=== PATIENT | female | born 1950 | race Caucasian/White ===

== ENCOUNTER → 2017-12-27 | Outpatient (CLI) | payer MEDICARE ==
--- NOTE | 2017-12-27 16:38 | CT ---
EXAMINATION TYPE: CT abdomen pelvis wo con DATE OF EXAM: 12/27/2017 COMPARISON: None HISTORY: 67-year-old female Ventral hernia without obstruction CT DLP: 977.20 mGycm. Automated exposure control for dose reduction was used. TECHNIQUE: Contiguous axial scanning of the abdomen and pelvis without IV contrast. Coronal and sagit rafita reconstructions performed. FINDINGS: Heart normal size without pericardial effusion. Lung bases clear without pleural effusion. Liver mildly enlarged measuring 19.1 cm. Noncontrast appearance of the liver, adrenal glands, kidneys , and pancreas show no gross abnormality. Spleen mildly enlarged at 14.1 cm on coronal series. Hilar splenule is noted. No dilated small bowel, free fluid, or free air. Mild overall stool burden with sigmoid diverticulosi s. No pericolonic inflammatory change identified. No mesenteric or retroperitoneal lymphadenopathy seen. Bladder partially distended. Uterus and ovaries are visualized. Pelvic phleboliths. No abnormal fluid collection in the pelvis or pelvic lymphadenopathy seen. There is a right paramedian epigastric ventral abdominal wall hernia containing fat and some mild flu id. The hernia neck measures 8 mm wide in the hernia measures 4.4 x 4.5 cm, axial image 32 and sagitt al image 54. A second left paramedian ventral wall hernia above the level of the umbilicus contains omental fat ve ssels. The hernia neck measures 2.3 cm wide and the hernia sac measures 9.2 x 7.2 cm. There is fat st randing and mild fluid in the hernia sac. There is mass effect onto the underlying abdominal wall. Bones: Degenerative changes at the hip and lower lumbar spine with grade 1 anterolisthesis at L4-L5. IMPRESSION: 1. A moderate to large sized left paramedian ventral abdominal wall hernia above the level of the um bilicus contains omental fat and vessels measuring 9.2 cm with a 2.3 cm wide hernia neck. There is fa t stranding, mild fluid in the hernia sac, and mass effect onto the underlying abdominal wall muscula ture. Correlate for hernia incarceration and possible fat strangulation. 2. Smaller right paramedian epigastric ventral abdominal hernia also containing omental fat and mild free fluid measuring 4.5 cm wide with an 8 mm wide neck. 3. Sigmoid diverticulosis. 4. Mild hepatosplenomegaly (liver 19.1 cm and spleen 14.1 cm).
== END | disposition home or self-care (01) ==
LOC: RADCTMAIN 13:20
PROVIDERS: ATTEND Surgery Plastic and Reconstructive Surgery
DX: K43.9 Ventral hernia without obstruction or gangrene (principal); K57.30 Diverticulosis of large intestine without perforation or abscess without bleeding; R16.2 Hepatomegaly with splenomegaly, not elsewhere classified
CPT/HCPCS: 74176

== ENCOUNTER 2018-02-11 09:42 | Day surgery (SDC) | payer MEDICARE ==
[~2018-02-11 09:42] MED LIST: DEXAMETHASONE SOD PHOSPHATE 10 MG/ML 1 ML VIAL IV ONE; HEPARIN SODIUM,PORCINE 5,000 UNIT/ML 1 ML VIAL SQ ONE; HYDROmorphone 0.5 MG/0.5 ML SYRINGE IVP PRN; LACTATED RINGERS 1,000 ML IV SCH; LIDOCAINE 1% 20 ML VIAL (10MG/ML) FOR IV START INTRADERMA PRN; SCOPOLAMINE 1.5MG/72HR PATCH TRANSDERM ONE; ceFAZolin IN SWFI 2 GM/20 ML SYRINGE IVP ONE
[2018-02-11 10:31] LABS: Glucose,Whole Blood 153 mg/dL (75-99)
[2018-02-11 10:37] LABS: Basophils % (A) 0 %; Eosinophils # (A) 0.1 k/uL (0-0.7); Eosinophils % (A) 2 %; HCT 41.3 % (34.0-46.0); HGB 13.4 gm/dL (11.4-16.0); Lymphocytes # (A) 1.6 k/uL (1.0-4.8); Lymphocytes % (A) 29 %; MCH 28.1 pg (25.0-35.0); MCHC 32.3 g/dL (31.0-37.0); MCV 86.8 fL (80.0-100.0); Monocytes # (A) 0.2 k/uL (0-1.0); Monocytes % (A) 4 %; Neutrophils # (A) 3.5 k/uL (1.3-7.7); Neutrophils % (A) 64 %; Platelet Count 165 k/uL (150-450); RBC 4.76 m/uL (3.80-5.40); RDW 13.9 % (11.5-15.5); WBC 5.5 k/uL (3.8-10.6)
[2018-02-11] MEDS ORDERED: ONDANSETRON 4 MG/2 ML VIAL IVP ONE (10:47)
[2018-02-11 10:50] LABS: Anion Gap 9 mmol/L; Blood Urea Nitrogen 21 mg/dL (7-17); Calcium 9.9 mg/dL (8.4-10.2); Carbon Dioxide 24 mmol/L (22-30); Chloride 106 mmol/L (98-107); Glucose 154 mg/dL (74-99); Potassium 4.7 mmol/L (3.5-5.1); Sodium 139 mmol/L (137-145)
--- NOTE | 2018-02-11 10:51 | P.GSHP ---
History of Present Illness H&P Date: 02/11/18 CHIEF COMPLAINT: Incisional hernia. HISTORY OF PRESENT ILLNESS: The patient is a 67-year-old female who presents with a history of swelling along the upper abdomen. Findings were consistent with possible incisional hernia. Now she presents for further evaluation and management. PAST MEDICAL HISTORY: Please see list. PAST SURGICAL HISTORY: Please see list. MEDICATIONS: Please see list. ALLERGIES: Please see list. SOCIAL HISTORY: No illicit drug use FAMILY HISTORY: No reports of Crohn disease or ulcerative colitis. REVIEW OF ORGAN SYSTEMS: CONSTITUTIONAL: No reports of fevers or chills. GI: Denies any blood in stools or constipation. PHYSICAL EXAM: VITAL SIGNS: Stable GENERAL: Well-developed pleasant female in no acute distress. HEENT: No scleral icterus. Extraocular movements grossly intact. Moist buccal mucosa. NECK: Supple without lymphadenopathy. CHEST: Unlabored respirations. Equal bilateral excursions. CARDIOVASCULAR: Regular rate and rhythm. Distal 2+ pulses. ABDOMEN: Soft, nondistended. Tender hernia along the mid abdomen. Protuberant. MUSCULOSKELETAL: No clubbing, cyanosis, or edema. ASSESSMENT: 1. Incisional ventral hernia. 2. Morbid obesity PLAN: 1. Recommend proceeding with robotic ventral hernia repair with mesh. 2. Benefits and risks of surgical intervention was discussed including possibility of open technique. 3. DVT prophylaxis. 4. Antibiotic prophylaxis. Past Medical History Past Medical History: Diabetes Mellitus, GERD/Reflux, Hypertension, Osteoarthritis (OA) History of Any Multi-Drug Resistant Organisms: None Reported Past Surgical History: Appendectomy, Cholecystectomy, Tubal Ligation Past Anesthesia/Blood Transfusion Reactions: Previous Problems w/ Anesthesia Additional Past Anesthesia/Blood Transfusion Reaction / Comment(s): stated hyperventilated after one of her surgeries as she was waking-not sure why Smoking Status: Never smoker - Past Family History Mother Family Medical History: No Reported History Medications and Allergies Home Medications Medication Instructions Recorded Confirmed Type Aspirin 81 mg PO DAILY 02/01/18 02/11/18 History Dapagliflozin Propanediol [Farxiga] 10 mg PO DAILY 02/01/18 02/11/18 History Enalapril [Vasotec] 20 mg PO BID 02/01/18 02/01/18 History Furosemide [Lasix] 40 mg PO BID 02/01/18 02/11/18 History Ibuprofen [Motrin] 800 mg PO Q6H PRN 02/01/18 02/11/18 History Metoprolol Tartrate [Lopressor] 100 mg PO BID 02/01/18 02/01/18 History Ranitidine HCl [Zantac] 150 mg PO BID 02/01/18 02/11/18 History amLODIPine [Norvasc] 10 mg PO DAILY 02/01/18 02/01/18 History metFORMIN HCL [Glucophage] 1,000 mg PO BID 02/01/18 02/11/18 History Allergies Allergy/AdvReac Type Severity Reaction Status Date / Time Latex, Natural Rubber Allergy Rash/Hives Verified 02/01/18 10:16 Surgical - Exam Vital Signs Temp Pulse Resp BP Pulse Ox 97.6 F 61 16 127/69 96 02/11/18 10:10 02/11/18 10:10 02/11/18 10:10 02/11/18 10:10 02/11/18 10:10 Results - Labs 02/11/18 10:26 Abnormal Lab Results - Last 24 Hours (Table) 02/11/18 Range/Units 10:21 POC Glucose (mg/dL) 153 H (75-99) mg/dL
[2018-02-11] MEDS ORDERED: PROPOFOL 10 MG/ML 20 ML VIAL IV ONE (11:17)
[2018-02-11] MEDS ORDERED: LIDOCAINE 1% INJ 10MG/ML (20 ML MDV) ONE (11:17)
[2018-02-11] MEDS ORDERED: SUCCINYLCHOLINE CHLORIDE 100 MG/5 ML SYR IV ONE (11:17)
[2018-02-11] MEDS ORDERED: fentaNYL (PF) 50 MCG/ML 2 ML AMP ONE (11:17)
[2018-02-11] MEDS ORDERED: MIDAZOLAM 2 MG/2 ML VIAL ONE (11:17)
[2018-02-11] MEDS ORDERED: GLYCOPYRROLATE 0.2 MG/ML 2 ML VIAL ONE (11:17)
[2018-02-11] MEDS ORDERED: NEOSTIGMINE 1 MG/ML 10 ML VIAL ONE (11:17)
[2018-02-11] MEDS ORDERED: HYDROmorphone (PF) 1 MG/ML ONE (11:17)
[2018-02-11] MEDS ORDERED: ROCURONIUM BROMIDE 10 MG/ML 10 ML VIAL IV ONE (11:17)
[2018-02-11] MEDS ORDERED: ePHEDrine SULFATE/0.9% NACL/PF 50 MG/5 ML SYRINGE IV ONE (11:17)
[2018-02-11] MEDS ORDERED: BUPIVACAIN-EPI 0.25%-1:200,000 30 ML VIAL SQ ONE (11:35)
[2018-02-11] MEDS ORDERED: LACTATED RINGERS 1,000 ML IV ONE (12:30)
--- NOTE | 2018-02-11 14:23 | P.OP ---
Date of Procedure: 02/11/18 Description of Procedure: SURGEON: ION ORTEGA MD PREOPERATIVE DIAGNOSES: 1. Incarcerated incisional hernia, initial 2. Morbid obesity due to excess calories, BMI 39.5 3. Diabetes type 2, uncontrolled 4. Hypertensive heart disease 5. Gastroesophageal reflux disease POSTOPERATIVE DIAGNOSES: 1. Incarcerated epigastric incisional hernia, initial 2. Morbid obesity due to excess calories, BMI 39.5 3. Diabetes type 2, uncontrolled 4. Hypertensive heart disease 5. Gastroesophageal reflux disease 6. Peritoneal adhesions OPERATION: 1. Robotic-assisted da Cedrick Xi laparoscopic reduction and repair of initial incarcerated incisional hernia epigastrium 10 x 13 cm with placement of mesh, ventralight ST mesh 15 x 20 cm 2. Robotic-assisted da Cedrick Xi laparoscopic lysis of adhesions over 30 minutes Anesthesia: GETA, local Estimated Blood Loss (ml): 5 Pathology: none sent Condition: stable Disposition: same day COMPLICATIONS: None. Operative Findings: 1. Incarcerated epigastric incisional hernia incorporating falciform ligament including omentum, 10 x 13 cm 2. Defect closed with the fascia using #1 Strafix 3. 3. 15 x 20 cm mesh as an onlay after fascial closure. 4. 12 mm port placed along the left upper quadrant for mesh placement and removal of sutures INDICATIONS: The patient is a 67-year-old female who presents with pain and swelling along the epigastrium for incarcerated incisional hernia. Surgical intervention with laparoscopic versus robotic and open techniques were reviewed. Placement of mesh was also reviewed. Benefits and risks were thoroughly described. Informed consent was obtained. DESCRIPTION OF PROCEDURE: The patient was brought into the operating room and laid in supine position. After general induction, the abdomen had been prepped and draped in standard sterile fashion. Ioban draping was also placed. Prior to incision, a timeout protocol was confirmed with surgical team regarding the patient's name including procedures to be performed. The robot was primed prior to the procedure. A field block using local anesthetic was placed along hernia site including the proposed port sites. Initial incision was made with a #11 blade along the left upper quadrant. A 0 degree 5 mm laparoscopic trocar entry was performed. Diagnostic laparoscopy demonstrated a large incarcerated omentum along the epigastrium for an incisional hernia. Three robotic 8-mm ports were placed along the right lateral abdominal wall. Placements of the ports were 15 cm from the target anatomy and 8 - 10 cm apart. The da Cedrick Xi robot was previously primed, prepped and draped then docked along the right side of the patient. I then sat at the robot Da Cedrick Xi console where working arms of the robot including Bovie cautery connected to robotic scissors, needle flatbed truck driver, vessel sealer and graspers were exchanged by the assistant spa manager. She had very dense adhesions of the epigastrium involving the greater omentum. The adhesions were addressed with a combination of sharp and blunt dissection for over 30 minutes. The incarcerated incisional defect was carefully reduced into the peritoneal cavity with a combination of abdominal wall pressure by the assistant spa manager. The fascial defect with incarcerated epigastric incisional hernia incorporating falciform ligament including omentum measured, 10 x 13 cm. The incarcerated contents was reduced. The hernia defect was oversewn using #1 Stratafix with fascial imbrication x 3 to close and reinforce the defect. Insufflation was adjusted down to 8 mmHg pressure to accommodate repair. Next, ventralight ST mesh 15 x 20 cm was placed with the rough side towards the abdominal wall. 2-0 VLOC sutures were used to fixate the mesh. A final endoscopic imaging was obtained. All instruments and pneumoperitoneum were evacuated from the abdominal cavity. The da Cedrick Xi robot was undocked from the patient. I re-scrubbed into the case for closure of incisions. The incisions were reapproximated using 4-0 Monocryl in an interrupted subcuticular fashion. Liquid glue was applied to the skin after cleansing the skin with normal saline and dilute hydrogen peroxide. An abdominal binder was placed. At the end of the procedure, needle, sponge, and instrument count had been verified correct by surgical tech. The patient was taken to the postanesthesia care unit in stable condition.
[2018-02-11] MEDS ORDERED: HYDROcodone/APAP 7.5-325MG 1 EACH TAB PO ONE (15:46)
== END 2018-02-11 16:33 | disposition home or self-care (01) ==
LOC: OR 09:42
PROVIDERS: ATTEND Surgery Plastic and Reconstructive Surgery
DX: K43.0 Incisional hernia with obstruction, without gangrene (principal); K66.0 Peritoneal adhesions (postprocedural) (postinfection); E66.01 Morbid (severe) obesity due to excess calories; Z68.39 Body mass index [BMI] 39.0-39.9, adult; E11.65 Type 2 diabetes mellitus with hyperglycemia; K21.9 Gastro-esophageal reflux disease without esophagitis; I11.9 Hypertensive heart disease without heart failure; M19.90 Unspecified osteoarthritis, unspecified site; Z90.49 Acquired absence of other specified parts of digestive tract; Z98.51 Tubal ligation status; Z79.84 Long term (current) use of oral hypoglycemic drugs; Z79.82 Long term (current) use of aspirin; Z79.899 Other long term (current) drug therapy; Z91.040 Latex allergy status
CPT/HCPCS: 80048; 85025; 49655; C1781; J2250; J1644; J1100; J2710; J2405; J2001; J3010; J1170 ×2; J0330; J2704; J0690

== ENCOUNTER 2018-11-09 07:15 | Day surgery (SDC) | payer MEDICARE ==
[2018-11-02 14:53] VITALS: BMI 38.9
[~2018-11-09 07:15] MED LIST changes: -DEXAMETHASONE SOD PHOSPHATE 10 MG/ML 1 ML VIAL IV ONE; -HEPARIN SODIUM,PORCINE 5,000 UNIT/ML 1 ML VIAL SQ ONE; -HYDROmorphone 0.5 MG/0.5 ML SYRINGE IVP PRN; -SCOPOLAMINE 1.5MG/72HR PATCH TRANSDERM ONE; -ceFAZolin IN SWFI 2 GM/20 ML SYRINGE IVP ONE
[2018-11-09 07:36] VITALS: TEMP 97.2
--- NOTE | 2018-11-09 07:44 | P.GSHP ---
History of Present Illness H&P Date: 11/09/18 CHIEF COMPLAINT: Colon screen HISTORY OF PRESENT ILLNESS: The patient is a 68-year-old female who presents for colon screen. Lower endoscopy was offered for further evaluation and management. PAST MEDICAL HISTORY: Please see list. PAST SURGICAL HISTORY: Please see list. MEDICATIONS: Please see list. ALLERGIES: Please see list. SOCIAL HISTORY: No illicit drug use FAMILY HISTORY: No reports of Crohn disease or ulcerative colitis. REVIEW OF ORGAN SYSTEMS: CONSTITUTIONAL: No reports of fevers or chills. PHYSICAL EXAM: VITAL SIGNS: Stable GENERAL: Well-developed pleasant in no acute distress. HEENT: No scleral icterus. Extraocular movements grossly intact. Moist buccal mucosa. NECK: Supple without lymphadenopathy. CHEST: Unlabored respirations. Equal bilateral excursions. CARDIOVASCULAR: Regular rate and rhythm. Distal 2+ pulses. ABDOMEN: Soft, nontender, nondistended. MUSCULOSKELETAL: No clubbing, cyanosis, or edema. ASSESSMENT: 1. Colon screen. PLAN: 1. Recommend proceeding with a lower endoscopy Past Medical History Past Medical History: Diabetes Mellitus, GERD/Reflux, Hypertension, Osteoarthritis (OA) History of Any Multi-Drug Resistant Organisms: None Reported Past Surgical History: Appendectomy, Cholecystectomy, Hernia Repair, Tubal Ligation Past Anesthesia/Blood Transfusion Reactions: Previous Problems w/ Anesthesia Additional Past Anesthesia/Blood Transfusion Reaction / Comment(s): stated hyperventilated after one of her surgeries as she was waking-not sure why. claustrophobia Smoking Status: Never smoker - Past Family History Mother Family Medical History: No Reported History Medications and Allergies Home Medications Medication Instructions Recorded Confirmed Type Aspirin 81 mg PO DAILY 02/01/18 11/09/18 History Dapagliflozin Propanediol [Farxiga] 10 mg PO DAILY 02/01/18 11/09/18 History Enalapril [Vasotec] 20 mg PO BID 02/01/18 11/09/18 History Furosemide [Lasix] 40 mg PO BID 02/01/18 11/09/18 History Ibuprofen [Motrin] 800 mg PO Q6H PRN 02/01/18 11/02/18 History Metoprolol Tartrate [Lopressor] 100 mg PO BID 02/01/18 11/09/18 History Ranitidine HCl [Zantac] 150 mg PO BID 02/01/18 11/09/18 History amLODIPine [Norvasc] 10 mg PO DAILY 02/01/18 11/09/18 History metFORMIN HCL [Glucophage] 1,000 mg PO BID 02/01/18 11/09/18 History Glimepiride [Amaryl] 2 mg PO AC-BRKFST 11/02/18 11/09/18 History Allergies Allergy/AdvReac Type Severity Reaction Status Date / Time Latex, Natural Rubber Allergy Rash/Hives Verified 11/02/18 14:41 Surgical - Exam Vital Signs Temp Pulse Resp BP Pulse Ox 97.2 F L 63 16 153/70 92 L 11/09/18 07:35 11/09/18 07:35 11/09/18 07:35 11/09/18 07:35 11/09/18 07:35
[2018-11-09 07:59] LABS: Glucose,Whole Blood 179 mg/dL (75-99)
[2018-11-09] MEDS ORDERED: PROPOFOL 10 MG/ML 20 ML VIAL IV ONE (08:16)
--- NOTE | 2018-11-09 08:43 | P.PCN ---
Date of Procedure: 11/09/18 Description of Procedure: PREOPERATIVE DIAGNOSIS: Colonoscopy screening. POSTOPERATIVE DIAGNOSIS: Colonoscopy screening. Diverticulosis, scattered. OPERATION: Colonoscopy to the ileocecal valve and appendiceal orifice. SURGEON: Chasity Taylor MD. ANESTHESIA: MAC. INDICATIONS: The patient is a 68-year-old female who presents for colonoscopy screening. Last colonoscopy over 5 years. Benefits and risks were described and informed consent was obtained. DESCRIPTION OF PROCEDURE: The patient had undergone Suprep. She had been brought into the operating room and laid in the left lateral decubitus position. After adequate intravenous sedation, the rectum was examined with 2% lidocaine jelly. No external hemorrhoids were encountered. The rectal tone was within normal limits. No lesions were palpated in the rectal vault. An Olympus colonoscope was advanced until the ileocecal valve and appendiceal orifice were clearly viewed. The prep was excellent with clear visualization of the mucosal folds. The scope was removed with visualization of each mucosal fold. Scattered diverticulosis was encountered. No colonic polyps were found. No evidence of focal colitis was found. Retroflexion of the scope demonstrated grade 1 internal hemorrhoids without active bleeding or inflammation. The colon was desufflated. The patient had tolerated the procedure well. Withdrawal time was over 6 minutes. FINDINGS: Aronchick preparation quality scale 2 (1-5) Internal hemorrhoids, grade 1 No external prolapsed hemorrhoids. No arteriovenous malformations. No adenomatous polyps. No focal colitis. RECOMMENDATIONS: Lower endoscopy 5 years, 2023 or Cologaurd Plan - Discharge Summary Discharge Rx Participant: No New Discharge Prescriptions: No Action Aspirin 81 mg PO DAILY amLODIPine [Norvasc] 10 mg PO DAILY Metoprolol Tartrate [Lopressor] 100 mg PO BID Furosemide [Lasix] 40 mg PO BID Enalapril [Vasotec] 20 mg PO BID metFORMIN HCL [Glucophage] 1,000 mg PO BID Ranitidine HCl [Zantac] 150 mg PO BID Ibuprofen [Motrin] 800 mg PO Q6H PRN PRN Reason: Pain Dapagliflozin Propanediol [Farxiga] 10 mg PO DAILY Glimepiride [Amaryl] 2 mg PO AC-BRKT Discharge Medication List Aspirin 81 mg PO DAILY 02/01/18 [History] Dapagliflozin Propanediol [Farxiga] 10 mg PO DAILY 02/01/18 [History] Enalapril [Vasotec] 20 mg PO BID 02/01/18 [History] Furosemide [Lasix] 40 mg PO BID 02/01/18 [History] Ibuprofen [Motrin] 800 mg PO Q6H PRN 02/01/18 [History] Metoprolol Tartrate [Lopressor] 100 mg PO BID 02/01/18 [History] Ranitidine HCl [Zantac] 150 mg PO BID 02/01/18 [History] amLODIPine [Norvasc] 10 mg PO DAILY 02/01/18 [History] metFORMIN HCL [Glucophage] 1,000 mg PO BID 02/01/18 [History] Glimepiride [Amaryl] 2 mg PO AC-BRKFST 11/02/18 [History] Follow up Appointment(s)/Referral(s): Chasity Taylor MD [STAFF PHYSICIAN] - As Needed Patient Instructions/Handouts: Diverticulosis Diet (GEN), Diverticulosis (DC), *Surgery [facility] - (Anesthesia) Endoscopy Discharge Instructions Activity/Diet/Wound Care/Special Instructions: Repeat colonoscopy in 5 years, 2023 Discharge Disposition: HOME SELF-CARE
[2018-11-09 09:00] VITALS: BP 158/80; PULSE 66; RESP 20
== END 2018-11-09 09:27 | disposition home or self-care (01) ==
LOC: ORWHC2ENDO 07:15
PROVIDERS: ATTEND Surgery Plastic and Reconstructive Surgery
DX: Z12.11 Encounter for screening for malignant neoplasm of colon (principal); K57.30 Diverticulosis of large intestine without perforation or abscess without bleeding; K64.0 First degree hemorrhoids; E11.9 Type 2 diabetes mellitus without complications; K21.9 Gastro-esophageal reflux disease without esophagitis; I10 Essential (primary) hypertension; F40.240 Claustrophobia; M19.90 Unspecified osteoarthritis, unspecified site; Z90.49 Acquired absence of other specified parts of digestive tract; Z98.51 Tubal ligation status; Z79.84 Long term (current) use of oral hypoglycemic drugs; Z79.82 Long term (current) use of aspirin; Z79.899 Other long term (current) drug therapy; Z91.040 Latex allergy status
CPT/HCPCS: J2704; G0121

== ENCOUNTER 2020-07-17 21:21 | Inpatient (IN) | payer MEDICARE ==
[2020-07-17] MEDS ORDERED: SODIUM CHLORIDE 0.9% 1,000 ML IV STA (21:40)
--- NOTE | 2020-07-17 21:44 | ED ---
SOB HPI - General Source: patient, EMS, RN notes reviewed Mode of arrival: ambulatory Limitations: no limitations <Dewayne Wong - Last Filed: 07/17/20 23:14> <Yo Reed - Last Filed: 07/20/20 23:04> - General Chief Complaint: Shortness of Breath Stated Complaint: cough, RICHARD Time Seen by Provider: 07/17/20 21:36 - History of Present Illness Initial Comments: Patient is a 70-year-old female that presents to emergency department with increased dyspnea. She does have a history of COPD. That for approximately last month her dyspnea has increased. She couldn't give an exact time frame. She was in moderate distress but no pain while sitting up in bed during exam and interview. Patient was very pleasant answering questions. She denied any chest pain headache nausea vomiting diarrhea constipation fever fatigue chills. (Dewayne Wong) - Related Data Home Medications Medication Instructions Recorded Confirmed Dapagliflozin Propanediol [Farxiga] 10 mg PO DAILY 02/01/18 07/17/20 Enalapril [Vasotec] 20 mg PO BID 02/01/18 07/17/20 Furosemide [Lasix] 40 mg PO BID 02/01/18 07/17/20 Metoprolol Tartrate [Lopressor] 100 mg PO BID 02/01/18 07/17/20 amLODIPine [Norvasc] 10 mg PO DAILY 02/01/18 07/17/20 Glimepiride [Amaryl] 2 mg PO AC-BRKFST 11/02/18 07/17/20 Benzonatate [Benzonatate Perle] 200 mg PO TID PRN 07/17/20 07/17/20 Loperamide [Imodium] 2 mg PO QID PRN 07/17/20 07/17/20 Omeprazole [PriLOSEC] 10 mg PO DAILY 07/17/20 07/17/20 Potassium Chloride ER [K-Dur 20] 20 meq PO DAILY 07/17/20 07/17/20 Pravastatin Sodium [Pravachol] 20 mg PO DAILY 07/17/20 07/17/20 Allergies Allergy/AdvReac Type Severity Reaction Status Date / Time Latex, Natural Rubber Allergy Rash/Hives Verified 07/17/20 23:16 Review of Systems ROS Other: All systems not noted in ROS Statement are negative. <Dewayne Wong - Last Filed: 07/17/20 23:14> ROS Other: All systems not noted in ROS Statement are negative. <Yo Reed - Last Filed: 07/20/20 23:04> ROS Statement: Those systems with pertinent positive or pertinent negative responses have been documented in the HPI. Past Medical History Past Medical History: Diabetes Mellitus, GERD/Reflux, Hypertension, Osteoarthritis (OA) History of Any Multi-Drug Resistant Organisms: None Reported Past Surgical History: Appendectomy, Cholecystectomy, Hernia Repair, Tubal Ligation Past Anesthesia/Blood Transfusion Reactions: Previous Problems w/ Anesthesia Additional Past Anesthesia/Blood Transfusion Reaction / Comment(s): stated hyperventilated after one of her surgeries as she was waking-not sure why. claustrophobia Past Psychological History: No Psychological Hx Reported Smoking Status: Never smoker Past Alcohol Use History: None Reported Past Drug Use History: None Reported - Past Family History Mother Family Medical History: No Reported History <Dewayne Wong - Last Filed: 07/17/20 23:14> General Exam Limitations: no limitations General appearance: alert, in no apparent distress Head exam: Present: atraumatic, normocephalic, normal inspection Eye exam: Present: normal appearance, PERRL, EOMI. Absent: scleral icterus, conjunctival injection, periorbital swelling ENT exam: Present: normal exam, mucous membranes moist Neck exam: Present: normal inspection. Absent: tenderness, meningismus, lymphadenopathy Respiratory exam: Present: normal lung sounds bilaterally, accessory muscle use. Absent: respiratory distress, wheezes, rales, rhonchi, stridor Cardiovascular Exam: Present: regular rate, normal rhythm, normal heart sounds. Absent: systolic murmur, diastolic murmur, rubs, gallop, clicks GI/Abdominal exam: Present: soft, normal bowel sounds. Absent: distended, tenderness, guarding, rebound, rigid Extremities exam: Present: normal inspection, full ROM, normal capillary refill. Absent: tenderness, pedal edema, joint swelling, calf tenderness Neurological exam: Present: alert, oriented X3, CN II-XII intact Psychiatric exam: Present: normal affect, normal mood Skin exam: Present: warm, dry, intact, normal color. Absent: rash <Dewayne Wong - Last Filed: 07/17/20 23:14> General appearance: alert, anxious, in distress Head exam: Present: atraumatic, normocephalic, normal inspection Eye exam: Present: normal appearance, PERRL, EOMI. Absent: scleral icterus, conjunctival injection, periorbital swelling ENT exam: Present: normal exam, mucous membranes moist Neck exam: Present: normal inspection. Absent: tenderness, meningismus, lymphadenopathy Respiratory exam: Present: respiratory distress, accessory muscle use, decreased breath sounds, prolonged expiratory. Absent: normal lung sounds bilaterally, wheezes, rales, rhonchi, stridor Cardiovascular Exam: Present: regular rate, normal rhythm, normal heart sounds. Absent: systolic murmur, diastolic murmur, rubs, gallop, clicks GI/Abdominal exam: Present: soft, normal bowel sounds. Absent: distended, tenderness, guarding, rebound, rigid Extremities exam: Present: normal inspection, full ROM, normal capillary refill. Absent: tenderness, pedal edema, joint swelling, calf tenderness Back exam: Present: normal inspection Neurological exam: Present: alert, oriented X3, CN II-XII intact Psychiatric exam: Present: normal affect, normal mood Skin exam: Present: warm, dry, intact, normal color. Absent: rash <oY Reed - Last Filed: 07/20/20 23:04> Course <Dewayne Wong - Last Filed: 07/17/20 23:14> <Yo Reed - Last Filed: 07/20/20 23:04> Vital Signs 07/17/20 07/17/20 07/17/20 21:29 23:30 23:32 Temperature 100.1 F H Pulse Rate 95 93 Respiratory 32 H 28 H Rate Blood Pressure 125/61 136/69 O2 Sat by Pulse 91 L 79 L 91 L Oximetry 07/18/20 07/18/20 07/18/20 01:11 04:58 06:37 Temperature 100.1 F H 97.8 F 98 F Pulse Rate 82 71 69 Respiratory 24 22 24 Rate Blood Pressure 120/59 121/72 122/69 O2 Sat by Pulse 95 94 L 94 L Oximetry 07/18/20 07/18/20 07/18/20 13:28 14:41 18:02 Temperature Pulse Rate 69 67 84 Respiratory 18 20 18 Rate Blood Pressure 126/59 117/74 117/74 O2 Sat by Pulse 93 L 95 96 Oximetry - Reevaluation(s) Reevaluation #1: 07/17/20 22:53 Sepsis called at 10:50 PM (Dewayne Wong) Medical records reviewed Symptoms improved here in the ER Spoke patient regarding findings and results, questions answered (Yo Reed) Medical Decision Making - Lab Data Result diagrams: 07/17/20 22:22 07/17/20 22:22 - EKG Data -: EKG Interpreted by Ms EKG shows normal: sinus rhythm Rate: normal - Radiology Data Radiology results: report reviewed, image reviewed <Dewayne Wong - Last Filed: 07/17/20 23:14> - Lab Data Result diagrams: 07/19/20 07:25 07/19/20 07:25 - Radiology Data Radiology results: report reviewed (Chest x-rays positive for coronavirus pneumonia), image reviewed <Yo Reed - Last Filed: 07/20/20 23:04> - Medical Decision Making 70-year-old female complaining of increased dyspnea over the last month. Labs, nonrebreather at 15 L/m, EKG, chest x-ray ordered. (Dewayne Wong) 70 female DF for evaluation patient does have significant coronavirus, will hold antibiotics secondary to coronavirus being cause of sepsis signs and symptoms. Patient will be admitted for continued supportive care hypoxia with coronavirus pneumonia (Yo Reed) - Lab Data Lab Results 07/17/20 07/17/20 07/17/20 Range/Units 22:22 22:22 22:22 WBC 10.4 (3.8-10.6) k/uL RBC 4.60 (3.80-5.40) m/uL Hgb 13.3 (11.4-16.0) gm/dL Hct 40.0 (34.0-46.0) % MCV 86.9 (80.0-100.0) fL MCH 28.8 (25.0-35.0) pg MCHC 33.2 (31.0-37.0) g/dL RDW 14.3 (11.5-15.5) % Plt Count 223 (150-450) k/uL MPV 7.6 Neutrophils % 90 % Lymphocytes % 6 % Monocytes % 3 % Eosinophils % 0 % Basophils % 0 % Neutrophils # 9.3 H (1.3-7.7) k/uL Lymphocytes # 0.6 L (1.0-4.8) k/uL Monocytes # 0.3 (0-1.0) k/uL Eosinophils # 0.0 (0-0.7) k/uL Basophils # 0.0 (0-0.2) k/uL PT 13.1 H (9.0-12.0) sec INR 1.3 H (<1.2) APTT 21.1 L (22.0-30.0) sec D-Dimer 25.52 H (<0.60) mg/L FEU Sodium 133 L (137-145) mmol/L Potassium 4.1 (3.5-5.1) mmol/L Chloride 99 (98-107) mmol/L Carbon Dioxide 21 L (22-30) mmol/L Anion Gap 13 mmol/L BUN 15 (7-17) mg/dL Creatinine 0.64 (0.52-1.04) mg/dL Est GFR (CKD-EPI)AfAm >90 (>60 ml/min/1.73 sqM) Est GFR (CKD-EPI)NonAf >90 (>60 ml/min/1.73 sqM) Glucose 181 H (74-99) mg/dL Plasma Lactic Acid Anupam (0.7-2.0) mmol/L Calcium 8.8 (8.4-10.2) mg/dL Total Bilirubin 1.4 H (0.2-1.3) mg/dL AST 74 H (14-36) U/L ALT 43 H (4-34) U/L Alkaline Phosphatase 71 (38-126) U/L Lactate Dehydrogenase (313-618) U/L Troponin I (0.000-0.034) ng/mL C-Reactive Protein (<10.0) mg/L Total Protein 6.5 (6.3-8.2) g/dL Albumin 3.3 L (3.5-5.0) g/dL Coronavirus (PCR) (Not Detectd) 07/17/20 07/17/20 07/17/20 Range/Units 22:22 22:22 22:22 WBC (3.8-10.6) k/uL RBC (3.80-5.40) m/uL Hgb (11.4-16.0) gm/dL Hct (34.0-46.0) % MCV (80.0-100.0) fL MCH (25.0-35.0) pg MCHC (31.0-37.0) g/dL RDW (11.5-15.5) % Plt Count (150-450) k/uL MPV Neutrophils % % Lymphocytes % % Monocytes % % Eosinophils % % Basophils % % Neutrophils # (1.3-7.7) k/uL Lymphocytes # (1.0-4.8) k/uL Monocytes # (0-1.0) k/uL Eosinophils # (0-0.7) k/uL Basophils # (0-0.2) k/uL PT (9.0-12.0) sec INR (<1.2) APTT (22.0-30.0) sec D-Dimer (<0.60) mg/L FEU Sodium (137-145) mmol/L Potassium (3.5-5.1) mmol/L Chloride (98-107) mmol/L Carbon Dioxide (22-30) mmol/L Anion Gap mmol/L BUN (7-17) mg/dL Creatinine (0.52-1.04) mg/dL Est GFR (CKD-EPI)AfAm (>60 ml/min/1.73 sqM) Est GFR (CKD-EPI)NonAf (>60 ml/min/1.73 sqM) Glucose (74-99) mg/dL Plasma Lactic Acid Anupam 1.7 (0.7-2.0) mmol/L Calcium (8.4-10.2) mg/dL Total Bilirubin (0.2-1.3) mg/dL AST (14-36) U/L ALT (4-34) U/L Alkaline Phosphatase (38-126) U/L Lactate Dehydrogenase 1571 H (313-618) U/L Troponin I <0.012 (0.000-0.034) ng/mL C-Reactive Protein 205.8 H (<10.0) mg/L Total Protein (6.3-8.2) g/dL Albumin (3.5-5.0) g/dL Coronavirus (PCR) (Not Detectd) 07/17/20 Range/Units 23:33 WBC (3.8-10.6) k/uL RBC (3.80-5.40) m/uL Hgb (11.4-16.0) gm/dL Hct (34.0-46.0) % MCV (80.0-100.0) fL MCH (25.0-35.0) pg MCHC (31.0-37.0) g/dL RDW (11.5-15.5) % Plt Count (150-450) k/uL MPV Neutrophils % % Lymphocytes % % Monocytes % % Eosinophils % % Basophils % % Neutrophils # (1.3-7.7) k/uL Lymphocytes # (1.0-4.8) k/uL Monocytes # (0-1.0) k/uL Eosinophils # (0-0.7) k/uL Basophils # (0-0.2) k/uL PT (9.0-12.0) sec INR (<1.2) APTT (22.0-30.0) sec D-Dimer (<0.60) mg/L FEU Sodium (137-145) mmol/L Potassium (3.5-5.1) mmol/L Chloride (98-107) mmol/L Carbon Dioxide (22-30) mmol/L Anion Gap mmol/L BUN (7-17) mg/dL Creatinine (0.52-1.04) mg/dL Est GFR (CKD-EPI)AfAm (>60 ml/min/1.73 sqM) Est GFR (CKD-EPI)NonAf (>60 ml/min/1.73 sqM) Glucose (74-99) mg/dL Plasma Lactic Acid Anupam (0.7-2.0) mmol/L Calcium (8.4-10.2) mg/dL Total Bilirubin (0.2-1.3) mg/dL AST (14-36) U/L ALT (4-34) U/L Alkaline Phosphatase (38-126) U/L Lactate Dehydrogenase (313-618) U/L Troponin I (0.000-0.034) ng/mL C-Reactive Protein (<10.0) mg/L Total Protein (6.3-8.2) g/dL Albumin (3.5-5.0) g/dL Coronavirus (PCR) Detected A (Not Detectd) - EKG Data EKG Comments: Ventricular rate 93 bpm, PA interval 158 ms, QRS duration 100 ms, QT/QTC 382/474 ms, PRT axes 49/10/46. Normal sinus rhythm, normal ECG. (Dewayne Wong) - Radiology Data Chest x-ray:Moderately severe bilateral pneumonia. No obvious heart failure. (Dewayne Wong) Critical Care Time Critical Care Time: Yes Total Critical Care Time: 31 <Yo Reed - Last Filed: 07/20/20 23:04> Disposition <Dewayne Wong - Last Filed: 07/17/20 23:14> Is patient prescribed a controlled substance at d/c from ED?: No <Yo Reed - Last Filed: 07/20/20 23:04> Clinical Impression: Pneumonia due to COVID-19 virus, COVID-19, Hypoxia Disposition: ADMITTED IP TO THIS HOSP Condition: Critical
[2020-07-17] MEDS ORDERED: IBUPROFEN 600 MG TAB PO STA (22:50)
[2020-07-17] MEDS ORDERED: ACETAMINOPHEN TAB 325 MG TAB PO STA (22:50)
[2020-07-17 22:51] LABS: Basophils % (A) 0 %; Eosinophils % (A) 0 %; HGB 13.3 gm/dL (11.4-16.0); Lymphocytes # (A) 0.6 k/uL (1.0-4.8); Lymphocytes % (A) 6 %; MCH 28.8 pg (25.0-35.0); MCHC 33.2 g/dL (31.0-37.0); MCV 86.9 fL (80.0-100.0); Mean Platelet Volume 7.6; Monocytes # (A) 0.3 k/uL (0-1.0); Monocytes % (A) 3 %; Neutrophils # (A) 9.3 k/uL (1.3-7.7); Neutrophils % (A) 90 %; Platelet Count 223 k/uL (150-450); RDW 14.3 % (11.5-15.5); WBC 10.4 k/uL (3.8-10.6)
--- NOTE | 2020-07-17 22:51 | XR ---
EXAMINATION TYPE: XR chest 1V portable DATE OF EXAM: 07/17/2020 COMPARISON: NONE HISTORY: Short of breath TECHNIQUE: Single view FINDINGS: Heart size is fairly normal. There is interstitial and airspace infiltrates in both lungs a nd more concentrated in the lower lobes. There are chest leads. I see no definite heart failure. Bony thorax appears intact. IMPRESSION: Moderately severe bilateral pneumonia. No obvious heart failure.
[2020-07-17] MEDS ORDERED: PIPERACILLIN-TAZOBACTAM 3.375 GM in SODIUM CHLORIDE 0.9% 100 ML IVPB ONE (23:00)
[2020-07-17 23:12] LABS: ALT 43 U/L (4-34); AST 74 U/L (14-36); African American GFR (CKD) >90 (>60 ml/min/1.73 sqM); Albumin 3.3 g/dL (3.5-5.0); Alkaline Phosphatase 71 U/L (38-126); Anion Gap 13 mmol/L; Blood Urea Nitrogen 15 mg/dL (7-17); Calcium 8.8 mg/dL (8.4-10.2); Carbon Dioxide 21 mmol/L (22-30); Chloride 99 mmol/L (98-107); Glucose 181 mg/dL (74-99); Non-African American GFR(CKD) >90 (>60 ml/min/1.73 sqM); Potassium 4.1 mmol/L (3.5-5.1); Sodium 133 mmol/L (137-145); Total Bilirubin 1.4 mg/dL (0.2-1.3); Total Protein 6.5 g/dL (6.3-8.2)
[2020-07-17 23:20] LABS: INR 1.3 (<1.2); Partial Thromboplastin Time 21.1 sec (22.0-30.0); Prothrombin Time 13.1 sec (9.0-12.0)
[2020-07-17 23:36] LABS: D-Dimer 25.52 mg/L FEU (<0.60)
[2020-07-17] MEDS ORDERED: DEXAMETHASONE SOD PHOSPHATE 10 MG/ML 1 ML VIAL IV STA (23:38)
[2020-07-17] MEDS ORDERED: ALBUTEROL HFA INHALER INHALATION STA (23:38)
[2020-07-18] MEDS ORDERED: NALOXONE 0.4 MG/ML 1 ML VIAL IV PRN (00:44)
[2020-07-18] MEDS ORDERED: HYDROmorphone 0.5 MG/0.5 ML SYRINGE IVP PRN (00:44)
[2020-07-18] MEDS ORDERED: ONDANSETRON 4 MG/2 ML VIAL IVP PRN (01:00)
[2020-07-18 01:14] LABS: C Reactive Protein 205.8 mg/L (<10.0)
[2020-07-18] MEDS: ALBUTEROL HFA INHALER INHALATION SCH ×4 (07:27→19:14)
[2020-07-18] MEDS: DEXAMETHASONE SOD PHOSPHATE 10 MG/ML 1 ML VIAL IV SCH (08:40)
[2020-07-18] MEDS: ZINC SULFATE 220 MG CAP PO SCH (08:41)
[2020-07-18] MEDS ORDERED: ENOXAPARIN 40 MG/0.4 ML SYRINGE SQ SCH (09:00)
[2020-07-18] MEDS ORDERED: BENZONATATE 100 MG CAP PO PRN (10:23)
[2020-07-18] MEDS ORDERED: LOPERAMIDE 2 MG CAP PO PRN (10:23)
--- NOTE | 2020-07-18 12:02 | P.CNPUL ---
History of Present Illness Consult date: 07/18/20 Requesting physician: Jorden Deutsch Reason for consult: dyspnea, cough, hypoxemia, pneumonia, abnormal CXR/CT Chief complaint: Shortness of breath, cough, chest congestion. History of present illness: This is a 62-year-old female that we see in the emergency department. She came to the emergency department on 317, complaining of increasing shortness of breath. She's not been feeling well for at least one month. She's been trying to take care of herself at home. Over the last couple of days, her symptoms got worse. She complains of chest congestion, cough, shortness of breath, fever, chills, muscle aches, and generally just not feeling well. Currently in the emergency department, she is on a nonrebreather mask, and 15 L high flow O2. She's not receiving any IV fluids. Both her and her are here in the emergency department, with COVID 19 pneumonia. She appears to be much sicker, as her oxygen requirements are much higher than her 's. 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 She has a history of diabetes mellitus, GERD, hypertension, and osteoarthritis. She is not a particularly good historian. White count is 10.4, hemoglobin 13.3, hematocrit 40.0, and platelet count 223,000. PT 13.1, INR 1.3, PTT 21.1, and d-dimer 25.52. Sodium 133, potassium 4.1, chloride 79, CO2 21, anion gap 13, BUN 15, creatinine 0.64. LDH is 1571, C-reactive protein is 206. COVID testing was positive. Chest x- rays consistent with bilateral infiltrates. They are rather extensive. Review of Systems REVIEW OF SYSTEMS: CONSTITUTIONAL: Fever and chills, weakness and fatigue. Muscle aches. NEUROLOGIC: [ Negative.] HEENT: [ Negative.] CARDIAC: [Negative.] PULMONARY: Shortness of breath, cough, chest pain, chest congestion. GI: [Negative.] : [Negative.] RHEUMATOLOGIC: [ Negative.] IMMUNOLOGIC: [ Negative.] ENDOCRINE: [Negative. ] DERMATOLOGIC: [Negative.] Past Medical History Past Medical History: Diabetes Mellitus, GERD/Reflux, Hypertension, Osteoarthritis (OA) History of Any Multi-Drug Resistant Organisms: None Reported Past Surgical History: Appendectomy, Cholecystectomy, Hernia Repair, Tubal Ligation Past Anesthesia/Blood Transfusion Reactions: Previous Problems w/ Anesthesia Additional Past Anesthesia/Blood Transfusion Reaction / Comment(s): stated hy perventilated after one of her surgeries as she was waking-not sure why. claustrophobia Past Psychological History: No Psychological Hx Reported Smoking Status: Never smoker Past Alcohol Use History: None Reported Past Drug Use History: None Reported - Past Family History Mother Family Medical History: No Reported History Medications and Allergies Home Medications Medication Instructions Recorded Confirmed Type Dapagliflozin Propanediol [Farxiga] 10 mg PO DAILY 02/01/18 07/17/20 History Enalapril [Vasotec] 20 mg PO BID 02/01/18 07/17/20 History Furosemide [Lasix] 40 mg PO BID 02/01/18 07/17/20 History Metoprolol Tartrate [Lopressor] 100 mg PO BID 02/01/18 07/17/20 History amLODIPine [Norvasc] 10 mg PO DAILY 02/01/18 07/17/20 History Glimepiride [Amaryl] 2 mg PO AC-BRKFST 11/02/18 07/17/20 History Benzonatate [Benzonatate Perle] 200 mg PO TID PRN 07/17/20 07/17/20 History Loperamide [Imodium] 2 mg PO QID PRN 07/17/20 07/17/20 History Omeprazole [PriLOSEC] 10 mg PO DAILY 07/17/20 07/17/20 History Potassium Chloride ER [K-Dur 20] 20 meq PO DAILY 07/17/20 07/17/20 History Pravastatin Sodium [Pravachol] 20 mg PO DAILY 07/17/20 07/17/20 History Allergies Allergy/AdvReac Type Severity Reaction Status Date / Time Latex, Natural Rubber Allergy Rash/Hives Verified 07/17/20 23:16 Physical Exam Osteopathic Statement: *. No significant issues noted on an osteopathic structural exam other than those noted in the History and Physical/Consult. Vitals: Vital Signs Temp Pulse Resp BP Pulse Ox 07/18/20 06:37 98 F 69 24 122/69 94 L 07/18/20 04:58 97.8 F 71 22 121/72 94 L 07/18/20 01:11 100.1 F H 82 24 120/59 95 07/17/20 23:32 93 28 H 136/69 91 L 07/17/20 23:30 79 L 07/17/20 21:29 100.1 F H 95 32 H 125/61 91 L Intake and Output 07/17/20 07/18/20 07/18/20 22:59 06:59 14:59 Other: Weight 136.078 kg Very short of breath, currently on a nonrebreather mask and 15 L high flow O2, with mild conversational dyspnea. No audible wheezing. No use of accessory muscles. HEENT examination is grossly unremarkable. Mucous membranes are moist. No oral lesions. Neck supple. Full range of motion. No adenopathy thyromegaly or neck vein distention. Cardiovascular examination reveals regular rhythm rate. S1-S2 normal. No S3 or S4. No discernible murmur noted. Heart rate is 69 bpm. Heart sounds are distant. Lungs reveal coarse bilateral rhonchi and bibasilar crackles. Breath sounds equal bilaterally but breath sounds are diminished throughout. No wheezes. Abdomen soft bowel sounds are heard. No masses or tenderness. Extremities are intact. No cyanosis clubbing or edema. Skin is without rash or lesion. Neurologic examination is brief but nonfocal. Results - Laboratory Findings CBC and BMP: 07/17/20 22:22 07/17/20 22:22 PT/INR, D-dimer PT 13.1 sec (9.0-12.0) H 07/17/20 22:22 INR 1.3 (<1.2) H 07/17/20 22:22 D-Dimer 25.52 mg/L FEU (<0.60) H 07/17/20 22:22 Abnormal lab findings: Abnormal Labs 07/17/20 07/17/20 07/17/20 22:22 22:22 22:22 Neutrophils # 9.3 H Lymphocytes # 0.6 L PT 13.1 H INR 1.3 H APTT 21.1 L D-Dimer 25.52 H Sodium 133 L Carbon Dioxide 21 L Glucose 181 H Total Bilirubin 1.4 H AST 74 H ALT 43 H Lactate Dehydrogenase C-Reactive Protein Albumin 3.3 L Coronavirus (PCR) 07/17/20 07/17/20 22:22 23:33 Neutrophils # Lymphocytes # PT INR APTT D-Dimer Sodium Carbon Dioxide Glucose Total Bilirubin AST ALT Lactate Dehydrogenase 1571 H C-Reactive Protein 205.8 H Albumin Coronavirus (PCR) Detected A - Diagnostic Findings Chest x-ray: image reviewed Assessment and Plan Assessment: Acute hypoxemic respiratory failure secondary to COVID 19 pneumonia/pneumonitis. Diabetes mellitus. Gastroesophageal reflux disease. Hypertension. Osteoarthritis. Plan: Plan dated 07/18/2020. The patient is a candidate for vitamins, Decadron, Lovenox, but not a candidate for convalescent plasma, REM, or TOCI. The patient's labs, and x-rays are reviewed. We will check a pro-calcitonin level. I am not sure why she is on IV antibiotics. Additional recommendations and suggestions are forthcoming. Prognosis is guarded. Additional recommendations will be made when appropriate. We will continue to follow this patient. She appears to be much sicker than her , and is requiring more oxygen than her . Time with Patient: Greater than 30
[2020-07-18] MEDS: lisinopriL 20 MG TAB PO SCH ×2 (12:13→22:34)
[2020-07-18] MEDS: METOPROLOL TARTRATE 50 MG TAB PO SCH ×2 (12:14→22:34)
[2020-07-18] MEDS: ASCORBIC ACID 500 MG TAB PO SCH ×2 (12:14→22:35)
[2020-07-18] MEDS: FUROSEMIDE 40 MG TAB PO SCH ×2 (12:14→16:35)
[2020-07-18] MEDS: CHOLECALCIFEROL 25 MCG (1000 IU) TABLET PO SCH (12:15)
[2020-07-18] MEDS: PANTOPRAZOLE 40 MG TABLET PO SCH (12:15)
[2020-07-18] MEDS: amLODIPine 10 MG TAB PO SCH (12:16)
[2020-07-18] MEDS: PRAVASTATIN SODIUM 20 MG TAB PO SCH (12:16)
[2020-07-18] MEDS: POTASSIUM CHLORIDE ER 20 MEQ TAB.ER PO SCH (12:16)
[2020-07-18] MEDS: NON FORMULARY DRUG (Dapagliflozin Propanediol [Farxiga] 10 MG Tablet) PO SCH (12:19)
[2020-07-18 20:26] LABS: Glucose,Whole Blood 437 mg/dL (75-99)
[2020-07-18] MEDS ORDERED: INSULIN REGULAR BOLUS (FROM DRIP BAG) IV ONE (20:33)
[2020-07-18] MEDS ORDERED: INSULIN ASPART (NovoLOG) 100 UNIT/ML VIAL SQ SCH (21:00)
[2020-07-18] MEDS ORDERED: ENOXAPARIN 80 MG/0.8 ML SYRINGE SQ SCH (21:00)
[2020-07-18 21:09] LABS: Glucose,Whole Blood 462 mg/dL (75-99)
[2020-07-18] MEDS: INSULIN REGULAR 100 UNIT in SODIUM CHLORIDE 0.9% 100 ML IV SCH (21:10)
[2020-07-18 21:52] LABS: Glucose,Whole Blood 348 mg/dL (75-99)
--- NOTE | 2020-07-18 22:02 | P.HPIM ---
History of Present Illness H&P Date: 07/18/20 Chief Complaint: Short of breath History of presenting complaint: This is a pleasant 70-year-old patient of Dr. Borges. Chronic stable medical conditions include diabetes, GERD, hypertension, osteoarthritis. For about a week patient been having symptoms of shortness of breath, cough. She had some diarrhea too. No fever. Decreased appetite. Tired rundown. Patient presents for that to the ER. Came back positive for COVID. Review of systems: GEN.: Tired EYES: None HEENT: None NECK: None RESPIRATORY: None CARDIOVASCULAR: None GASTROINTESTINAL: Had diarrhea GENITOURINARY: None MUSCULOSKELETAL: Some muscle aches LYMPHATICS: None HEMATOLOGICAL: None PSYCHIATRY: None NEUROLOGICAL: None Past medical history to include: Diabetes, GERD, hypertension, osteoarthritis Social history: . No history of smoking and alcohol Family history: Reviewed, noncontributory to presentation Physical examination: VITAL SIGNS: 100.1, 95, 32, 125/61, 91% on 15 L nonrebreather GENERAL: BMI is 53.1, laying in bed, short of breath. EYES: Pupils equal. Conjunctiva normal. HEENT: External appearance of nose and ears normal, oral cavity grossly normal. NECK: JVD not raised; masses not palpable. HEART: First and second heart sounds are normal; no edema. LUNGS: Respiratory rate increased, decreased breath sound some expiratory crackles. ABDOMEN: Soft, nontender, liver spleen not palpable, no masses palpable. PSYCH: Alert and oriented x3; mood and affect anxiousl. NEUROLOGICAL: Cranial nerves grossly intact; no facial asymmetry, power and sensation grossly intact. LYMPHATICS: No lymph nodes palpable in the axilla and neck are normal INVESTIGATIONS, reviewed in the clinical context: WBC 10.4 hemoglobin 13.3 platelets 223 potassium 4.1 creatinine 0.64 CRP 205 pro-calcitonin 0.26 Coronavirus [PCR]-detected EKG tracing personally reviewed by me-normal sinus rhythm Chest x-ray film personally reviewed by me-bilateral scattered infiltrates Assessment and plan: -Bilateral COVID 19 pneumonia with symptoms starting about a week ago. Patient is placed on Lovenox, Decadron, zinc, vitamin C vitamin D. -Acute hypoxic respiratory failure patient requiring high flow oxygen -Morbid obesity BMI 53.1. Follow-up for weight loss measures as an outpatient with PCP. -Diabetes mellitus type 2 on oral hypoglycemic, uncontrolled with hypoglycemia -GERD, continue with Prilosec -Essential hypertension, continue with Vasotec Norvasc Lopressor -Primary osteoarthritis, use pain medications as needed -Hyperlipidemia, continue with Pravachol -DO NOT RESUSCITATE Care was discussed with the patient. Consultation made to ID and pulmonary Given the complexity and severity of patient's condition expect the patient to be in the hospital at least for 2 overnights Past Medical History Past Medical History: Diabetes Mellitus, GERD/Reflux, Hypertension, Osteoarthritis (OA) History of Any Multi-Drug Resistant Organisms: None Reported Past Surgical History: Appendectomy, Cholecystectomy, Hernia Repair, Tubal Ligation Past Anesthesia/Blood Transfusion Reactions: Previous Problems w/ Anesthesia Additional Past Anesthesia/Blood Transfusion Reaction / Comment(s): stated hyperventilated after one of her surgeries as she was waking-not sure why. claustrophobia Past Psychological History: No Psychological Hx Reported Smoking Status: Never smoker Past Alcohol Use History: None Reported Past Drug Use History: None Reported - Past Family History Mother Family Medical History: No Reported History Medications and Allergies Home Medications Medication Instructions Recorded Confirmed Type Dapagliflozin Propanediol [Farxiga] 10 mg PO DAILY 02/01/18 07/17/20 History Enalapril [Vasotec] 20 mg PO BID 02/01/18 07/17/20 History Furosemide [Lasix] 40 mg PO BID 02/01/18 07/17/20 History Metoprolol Tartrate [Lopressor] 100 mg PO BID 02/01/18 07/17/20 History amLODIPine [Norvasc] 10 mg PO DAILY 02/01/18 07/17/20 History Glimepiride [Amaryl] 2 mg PO AC-BRKFST 11/02/18 07/17/20 History Benzonatate [Benzonatate Perle] 200 mg PO TID PRN 07/17/20 07/17/20 History Loperamide [Imodium] 2 mg PO QID PRN 07/17/20 07/17/20 History Omeprazole [PriLOSEC] 10 mg PO DAILY 07/17/20 07/17/20 History Potassium Chloride ER [K-Dur 20] 20 meq PO DAILY 07/17/20 07/17/20 History Pravastatin Sodium [Pravachol] 20 mg PO DAILY 07/17/20 07/17/20 History Allergies Allergy/AdvReac Type Severity Reaction Status Date / Time Latex, Natural Rubber Allergy Rash/Hives Verified 07/17/20 23:16 Physical Exam Vitals: Vital Signs Temp Pulse Resp BP Pulse Ox 07/18/20 06:37 98 F 69 24 122/69 94 L 07/18/20 04:58 97.8 F 71 22 121/72 94 L 07/18/20 01:11 100.1 F H 82 24 120/59 95 07/17/20 23:32 93 28 H 136/69 91 L 07/17/20 23:30 79 L 07/17/20 21:29 100.1 F H 95 32 H 125/61 91 L Intake and Output 07/17/20 07/18/20 07/18/20 22:59 06:59 14:59 Other: Weight 136.078 kg Results CBC & Chem 7: 07/17/20 22:22 07/17/20 22:22 Labs: Abnormal Lab Results - Last 24 Hours (Table) 07/17/20 07/17/20 07/17/20 Range/Units 22:22 22:22 22:22 Neutrophils # 9.3 H (1.3-7.7) k/uL Lymphocytes # 0.6 L (1.0-4.8) k/uL PT 13.1 H (9.0-12.0) sec INR 1.3 H (<1.2) APTT 21.1 L (22.0-30.0) sec D-Dimer 25.52 H (<0.60) mg/L FEU Sodium 133 L (137-145) mmol/L Carbon Dioxide 21 L (22-30) mmol/L Glucose 181 H (74-99) mg/dL Total Bilirubin 1.4 H (0.2-1.3) mg/dL AST 74 H (14-36) U/L ALT 43 H (4-34) U/L Lactate Dehydrogenase (313-618) U/L C-Reactive Protein (<10.0) mg/L Albumin 3.3 L (3.5-5.0) g/dL Coronavirus (PCR) (Not Detectd) 07/17/20 07/17/20 Range/Units 22:22 23:33 Neutrophils # (1.3-7.7) k/uL Lymphocytes # (1.0-4.8) k/uL PT (9.0-12.0) sec INR (<1.2) APTT (22.0-30.0) sec D-Dimer (<0.60) mg/L FEU Sodium (137-145) mmol/L Carbon Dioxide (22-30) mmol/L Glucose (74-99) mg/dL Total Bilirubin (0.2-1.3) mg/dL AST (14-36) U/L ALT (4-34) U/L Lactate Dehydrogenase 1571 H (313-618) U/L C-Reactive Protein 205.8 H (<10.0) mg/L Albumin (3.5-5.0) g/dL Coronavirus (PCR) Detected A (Not Detectd)
[2020-07-18 22:21] LABS: Glucose,Whole Blood 336 mg/dL (75-99)
[2020-07-18 22:51] LABS: Glucose,Whole Blood 347 mg/dL (75-99)
[2020-07-18] MEDS: ENOXAPARIN 120 MG/0.8 ML SYRINGE SQ SCH (22:55)
[2020-07-18 23:25] LABS: Glucose,Whole Blood 281 mg/dL (75-99)
[2020-07-18 23:55] LABS: Glucose,Whole Blood 241 mg/dL (75-99)
[2020-07-19 01:53] LABS: Glucose,Whole Blood 189 mg/dL (75-99)
[2020-07-19] MEDS: INSULIN REGULAR 100 UNIT in SODIUM CHLORIDE 0.9% 100 ML IV SCH ×3 (01:54→18:45)
[2020-07-19 03:51] LABS: Glucose,Whole Blood 141 mg/dL (75-99)
[2020-07-19 05:55] LABS: Glucose,Whole Blood 174 mg/dL (75-99)
--- NOTE | 2020-07-19 06:53 | CONS ---
CONSULTATION DATE OF SERVICE: 07/18/2020 REASON FOR CONSULTATION: COVID-19 infection. HISTORY OF PRESENT ILLNESS: The patient is a 70-year-old female presenting to the ER at [facility] yesterday for evaluation of increasing shortness of breath in this patient with underlying COPD. The patient's symptoms have been going on for about a month before presentation to the hospital. Over the last few days the patient has been having increasing shortness of breath on minimal exertion. The patient denies having any chest pain. She did have a cough which is moderate in intensity with occasional sputum. She did have some nausea but no vomiting. Denies any abdominal pain or any diarrhea. On presentation to the hospital, the patient was running a low-grade fever of 100.1 degrees Fahrenheit. The patient was hypoxic requiring high-flow nasal cannula oxygen. The patient did have a normal white count with lymphopenia. D-dimer 25.52, BUN of 15 and 0.54. Liver enzymes are elevated. CRP is 205, procalcitonin 0.26. Jenkins PCR came back positive. The patient did have a chest x-ray that showed moderately severe bilateral pneumonia. The patient has been admitted to the hospital. Infectious Disease was consulted for further management. REVIEW OF SYSTEMS: Positive points have been mentioned in HPI. Rest of systems are negative. PAST MEDICAL HISTORY: Diabetes mellitus, gastroesophageal reflux disease, hypertension, osteoarthritis. PAST SURGICAL HISTORY: Appendectomy cholecystectomy, hernia repair and tubal ligation. SOCIAL HISTORY: No history of smoking. No drinking or drug use. FAMILY HISTORY: No pertinent findings noticed. ALLERGIES: No known drug allergies. MEDICATIONS: The patient is currently on Tylenol, Ventolin, Norvasc, vitamin C, Tessalon Perles, Decadron, Lovenox, Lasix, Dilaudid, sliding scale insulin, Zestril, Imodium, Lopressor, Zofran, K-Dur, Pravachol, and zinc sulfate. PHYSICAL EXAMINATION: VITAL SIGNS: Blood pressure 118/58 with a pulse of 74, temperature 97.6, T-max 100.1, she is 97% on high flow oxygen. GENERAL DESCRIPTION: Patient is an elderly female lying in bed in no distress. No tachypnea or accessory muscles of respiration use. HEENT: Examination shows no pallor or scleral icterus. Oral mucous membrane is dry. NECK: Trachea central, no thyromegaly. LUNGS: Unlabored breathing, decreased intensity of breath sounds. No wheeze or crackle. HEART: S1-S2, regular rate and rhythm. ABDOMEN: Soft, no tenderness. EXTREMITIES: No edema of the feet. SKIN: No rash or mass palpable. NEUROLOGICAL: Patient is awake, alert, oriented times three. Mood and affect normal. LAB: Hemoglobin 13.1, white count 10.4 with left shift with leukopenia. D-dimer 25.52. BUN of 15, creatinine 0.64. Electrolytes have been normal. Liver enzymes are elevated. CRP 205, LDH 1571, procalcitonin 0.26. Chest x-ray with bilateral infiltrates. DIAGNOSTIC IMPRESSION: Patient admitted to the hospital with increasing shortness of breath, weakness, hypoxemia with evidence of bilateral pneumonia in this patient with underlying chronic obstructive pulmonary disease. However, the patient's symptoms have been going on for about a month and seemed to be out of any therapeutic benefit from remdesivir. Clinically no evidence of any secondary bacterial pneumonia. PLAN: 1. The patient to continue with dexamethasone, Lovenox, zinc and ascorbic acid. 2. No need for systemic antibiotics. 3. Droplet isolation and respiratory support. 4. We will follow on clinical condition to further adjust medication if needed. Thank you for this consultation. Will follow this patient along with you. MMODL / IJN: [id number] /
[2020-07-19] MEDS: NON FORMULARY DRUG (Dapagliflozin Propanediol [Farxiga] 10 MG Tablet) PO SCH (07:24)
[2020-07-19] MEDS: ALBUTEROL HFA INHALER INHALATION SCH ×4 (07:43→19:47)
[2020-07-19 08:07] LABS: Glucose,Whole Blood 215 mg/dL (75-99)
[2020-07-19 08:09] LABS: ALT 43 U/L (4-34); AST 64 U/L (14-36); African American GFR (CKD) >90 (>60 ml/min/1.73 sqM); Albumin 3.1 g/dL (3.5-5.0); Alkaline Phosphatase 73 U/L (38-126); Anion Gap 9 mmol/L; Blood Urea Nitrogen 31 mg/dL (7-17); Calcium 9.7 mg/dL (8.4-10.2); Carbon Dioxide 26 mmol/L (22-30); Chloride 99 mmol/L (98-107); Glucose 165 mg/dL (74-99); Magnesium 2.4 mg/dL (1.6-2.3); Non-African American GFR(CKD) >90 (>60 ml/min/1.73 sqM); Potassium 3.9 mmol/L (3.5-5.1); Sodium 134 mmol/L (137-145); Total Bilirubin 0.8 mg/dL (0.2-1.3); Total Protein 6.3 g/dL (6.3-8.2)
[2020-07-19] MEDS: amLODIPine 10 MG TAB PO SCH (08:16)
[2020-07-19] MEDS: lisinopriL 20 MG TAB PO SCH ×3 (08:16→20:19)
[2020-07-19] MEDS: ENOXAPARIN 120 MG/0.8 ML SYRINGE SQ SCH (08:16)
[2020-07-19] MEDS: CHOLECALCIFEROL 25 MCG (1000 IU) TABLET PO SCH (08:16)
[2020-07-19] MEDS: PRAVASTATIN SODIUM 20 MG TAB PO SCH (08:16)
[2020-07-19] MEDS: ZINC SULFATE 220 MG CAP PO SCH (08:16)
[2020-07-19] MEDS: PANTOPRAZOLE 40 MG TABLET PO SCH (08:17)
[2020-07-19] MEDS: DEXAMETHASONE SOD PHOSPHATE 10 MG/ML 1 ML VIAL IV SCH (08:17)
[2020-07-19] MEDS: FUROSEMIDE 40 MG TAB PO SCH ×2 (08:17→16:24)
[2020-07-19] MEDS: INSULIN ASPART (NovoLOG) 100 UNIT/ML VIAL SQ SCH ×4 (08:17→17:30)
[2020-07-19] MEDS: METOPROLOL TARTRATE 50 MG TAB PO SCH ×2 (08:17→20:19)
[2020-07-19] MEDS: POTASSIUM CHLORIDE ER 20 MEQ TAB.ER PO SCH (08:17)
[2020-07-19] MEDS: ASCORBIC ACID 500 MG TAB PO SCH ×2 (08:18→20:19)
[2020-07-19 08:21] LABS: Basophils % (A) 0 %; Eosinophils % (A) 0 %; HCT 39.3 % (34.0-46.0); HGB 12.7 gm/dL (11.4-16.0); Lymphocytes # (A) 0.4 k/uL (1.0-4.8); Lymphocytes % (A) 5 %; MCH 28.5 pg (25.0-35.0); MCHC 32.4 g/dL (31.0-37.0); Mean Platelet Volume 8.3; Monocytes # (A) 0.2 k/uL (0-1.0); Monocytes % (A) 3 %; Neutrophils # (A) 7.5 k/uL (1.3-7.7); Neutrophils % (A) 91 %; Platelet Count 173 k/uL (150-450); RBC 4.46 m/uL (3.80-5.40); RDW 14.2 % (11.5-15.5); WBC 8.3 k/uL (3.8-10.6)
[2020-07-19 08:41] LABS: C Reactive Protein 166.2 mg/L (<10.0)
[2020-07-19 10:37] LABS: Glucose,Whole Blood 206 mg/dL (75-99)
[2020-07-19 12:03] LABS: Glucose,Whole Blood 259 mg/dL (75-99)
[2020-07-19 14:11] LABS: Glucose,Whole Blood 303 mg/dL (75-99)
[2020-07-19 15:24] LABS: Hemoglobin A1C 8.3 % (4.0-6.0)
--- NOTE | 2020-07-19 15:47 | P.PN ---
Subjective Progress Note Date: 07/19/20 Principal diagnosis: CoVID 19 pneumonia This is a 62-year-old female that we see in the emergency department. She came to the emergency department on 317, complaining of increasing shortness of breath. She's not been feeling well for at least one month. She's been trying to take care of herself at home. Over the last couple of days, her symptoms got worse. She complains of chest congestion, cough, shortness of breath, fever, chills, muscle aches, and generally just not feeling well. Currently in the emergency department, she is on a nonrebreather mask, and 15 L high flow O2. She's not receiving any IV fluids. Both her and her are here in the emergency department, with COVID 19 pneumonia. She appears to be much sicker, as her oxygen requirements are much higher than her 's. 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 She has a history of diabetes mellitus, GERD, hypertension, and osteoarthritis. She is not a particularly good historian. White count is 10.4, hemoglobin 13.3, hematocrit 40.0, and platelet count 223,000. PT 13.1, INR 1.3, PTT 21.1, and d-dimer 25.52. Sodium 133, potassium 4.1, chloride 79, CO2 21, anion gap 13, BUN 15, creatinine 0.64. LDH is 1571, C-reactive protein is 206. COVID testing was positive. Chest x- rays consistent with bilateral infiltrates. They are rather extensive. The patient is seen today in 07/19/2020 in follow-up on the selective care unit. She is currently sitting up in a chair at the bedside. Awake and alert in no acute distress. Doing a bit better today compared to yesterday. She is still on 15 L high flow nasal cannula. O2 saturation 92%. Currently off the nonrebreather mask. White count 8.3. Hemoglobin 12.7. Lymphocytes 0.4. D- dimer greater than 34. Sodium 134. Potassium 3.9. Creatinine 0.59. C- reactive protein 166. Pro-calcitonin 0.26. She remains on Lovenox, Decadron, vitamin supplements. Objective - Vital Signs Vital signs: Vital Signs Temp 97.5 F L 07/19/20 15:05 Pulse 85 07/19/20 15:05 Resp 20 07/19/20 15:05 BP 110/56 07/19/20 15:05 Pulse Ox 93 L 07/19/20 15:05 Intake & Output 07/18/20 07/19/20 07/19/20 18:59 06:59 18:59 Intake Total 98.719 305.726 Output Total 880 300 Balance -781.281 5.726 Weight 135.5 kg Intake: Intake, IV Titration 98.719 65.726 Amount Insulin Regular 100 unit 98.719 65.726 In Sodium Chloride 0.9% 100 ml @ Titrate IV .Q0M MILDRED Rx#:[id number] Oral 240 Output: Urine 880 300 Other: Voiding Method Bedside Commode # Voids 1 # Bowel Movements 1 - Exam GENERAL EXAM: Alert, pleasant 70-year-old female patient, on 15 L high flow nasal cannula,, comfortable in no apparent distress. HEAD: Normocephalic. EYES: Normal reaction of pupils, equal size. NOSE: Clear with pink turbinates. THROAT: No erythema or exudates. NECK: No masses, no JVD. CHEST: No chest wall deformity. LUNGS: Equal air entry with bilateral scattered rhonchi, crackles in the posterior bases CVS: S1 and S2 normal with no audible murmur, regular rhythm. ABDOMEN: No hepatosplenomegaly, normal bowel sounds, no guarding or rigidity. SPINE: No scoliosis or deformity SKIN: No rashes CENTRAL NERVOUS SYSTEM: No focal deficits, tone is normal in all 4 extremities. EXTREMITIES: There is no peripheral edema. No clubbing, no cyanosis. Peripheral pulses are intact. - Labs CBC & Chem 7: 07/19/20 07:25 07/19/20 07:25 Labs: Abnormal Lab Results - Last 24 Hours (Table) 07/18/20 07/18/20 07/18/20 Range/Units 09:10 20:20 21:08 Lymphocytes # (1.0-4.8) k/uL D-Dimer (<0.60) mg/L FEU Sodium (137-145) mmol/L BUN (7-17) mg/dL Glucose (74-99) mg/dL POC Glucose (mg/dL) 437 H 462 H (75-99) mg/dL Hemoglobin A1c (4.0-6.0) % Magnesium (1.6-2.3) mg/dL AST (14-36) U/L ALT (4-34) U/L C-Reactive Protein (<10.0) mg/L Albumin (3.5-5.0) g/dL Procalcitonin 0.26 H (0.02-0.09) ng/mL 07/18/20 07/18/20 07/18/20 Range/Units 21:51 22:20 22:48 Lymphocytes # (1.0-4.8) k/uL D-Dimer (<0.60) mg/L FEU Sodium (137-145) mmol/L BUN (7-17) mg/dL Glucose (74-99) mg/dL POC Glucose (mg/dL) 348 H 336 H 347 H (75-99) mg/dL Hemoglobin A1c (4.0-6.0) % Magnesium (1.6-2.3) mg/dL AST (14-36) U/L ALT (4-34) U/L C-Reactive Protein (<10.0) mg/L Albumin (3.5-5.0) g/dL Procalcitonin (0.02-0.09) ng/mL 07/18/20 07/18/20 07/19/20 Range/Units 23:23 23:53 01:51 Lymphocytes # (1.0-4.8) k/uL D-Dimer (<0.60) mg/L FEU Sodium (137-145) mmol/L BUN (7-17) mg/dL Glucose (74-99) mg/dL POC Glucose (mg/dL) 281 H 241 H 189 H (75-99) mg/dL Hemoglobin A1c (4.0-6.0) % Magnesium (1.6-2.3) mg/dL AST (14-36) U/L ALT (4-34) U/L C-Reactive Protein (<10.0) mg/L Albumin (3.5-5.0) g/dL Procalcitonin (0.02-0.09) ng/mL 07/19/20 07/19/20 07/19/20 Range/Units 03:49 05:54 07:25 Lymphocytes # (1.0-4.8) k/uL D-Dimer (<0.60) mg/L FEU Sodium (137-145) mmol/L BUN (7-17) mg/dL Glucose (74-99) mg/dL POC Glucose (mg/dL) 141 H 174 H (75-99) mg/dL Hemoglobin A1c 8.3 H (4.0-6.0) % Magnesium (1.6-2.3) mg/dL AST (14-36) U/L ALT (4-34) U/L C-Reactive Protein (<10.0) mg/L Albumin (3.5-5.0) g/dL Procalcitonin (0.02-0.09) ng/mL 07/19/20 07/19/20 07/19/20 Range/Units 07:25 07:25 07:25 Lymphocytes # 0.4 L (1.0-4.8) k/uL D-Dimer >34.10 H (<0.60) mg/L FEU Sodium 134 L (137-145) mmol/L BUN 31 H (7-17) mg/dL Glucose 165 H (74-99) mg/dL POC Glucose (mg/dL) (75-99) mg/dL Hemoglobin A1c (4.0-6.0) % Magnesium 2.4 H (1.6-2.3) mg/dL AST 64 H (14-36) U/L ALT 43 H (4-34) U/L C-Reactive Protein 166.2 H (<10.0) mg/L Albumin 3.1 L (3.5-5.0) g/dL Procalcitonin (0.02-0.09) ng/mL 07/19/20 07/19/20 07/19/20 Range/Units 08:01 10:36 11:58 Lymphocytes # (1.0-4.8) k/uL D-Dimer (<0.60) mg/L FEU Sodium (137-145) mmol/L BUN (7-17) mg/dL Glucose (74-99) mg/dL POC Glucose (mg/dL) 215 H 206 H 259 H (75-99) mg/dL Hemoglobin A1c (4.0-6.0) % Magnesium (1.6-2.3) mg/dL AST (14-36) U/L ALT (4-34) U/L C-Reactive Protein (<10.0) mg/L Albumin (3.5-5.0) g/dL Procalcitonin (0.02-0.09) ng/mL 07/19/20 Range/Units 14:05 Lymphocytes # (1.0-4.8) k/uL D-Dimer (<0.60) mg/L FEU Sodium (137-145) mmol/L BUN (7-17) mg/dL Glucose (74-99) mg/dL POC Glucose (mg/dL) 303 H (75-99) mg/dL Hemoglobin A1c (4.0-6.0) % Magnesium (1.6-2.3) mg/dL AST (14-36) U/L ALT (4-34) U/L C-Reactive Protein (<10.0) mg/L Albumin (3.5-5.0) g/dL Procalcitonin (0.02-0.09) ng/mL Microbiology - Last 24 Hours (Table) 07/17/20 23:22 Blood Culture - Preliminary Blood No Growth after 24 hours 07/17/20 22:22 Blood Culture - Preliminary Blood No Growth after 24 hours Assessment and Plan Assessment: 1 Acute hypoxemic respiratory failure secondary to COVID 19 pneumonia/pneumonitis. Not a candidate for Remdesivir, tocilizumab, convalescent plasma 2 Diabetes mellitus. 3 Gastroesophageal reflux disease. 4 Hypertension. 5 Osteoarthritis. Plan: The patient was seen and evaluated by Dr. Carlin We'll continue the current treatment plan Titrate down the FiO2 as tolerated Continue to follow I, the cosigning physician, performed a history & physical examination of the patient. Lungs sounds bilateral rhonchi, crackles in the posterior bases. Maintaining good O2 saturations in the 90s on 15 L high flow nasal cannula. I discussed the assessment and plan of care with my nurse practitioner, Ivette Palumbo. I attest to the above note as dictated by her.
[2020-07-19 16:01] LABS: Glucose,Whole Blood 277 mg/dL (75-99)
--- NOTE | 2020-07-19 16:59 | PN ---
PROGRESS NOTE DATE OF SERVICE: 07/19/2020 REASON FOR FOLLOWUP: COVID-19 pneumonia. INTERVAL HISTORY: The patient is currently afebrile. The patient is breathing comfortably today. The patient denies having any chest pain. Minimal cough. No sputum. No nausea, no vomiting, no abdominal pain or diarrhea. PHYSICAL EXAMINATION: Blood pressure 110/66, pulse of 85, temperature 97.5. She is 93% on 15 L high-flow oxygen. General description is an elderly female up in the chair in no distress. RESPIRATORY SYSTEM: Unlabored breathing with decreased intensity of breath sounds. No wheeze. HEART: S1, S2. Regular rate and rhythm. ABDOMEN: Soft. No tenderness. LABS: Hemoglobin is 12.6, white count 8.3. BUN of 31, creatinine 0.59. Blood culture so far negative. DIAGNOSTIC IMPRESSION AND PLAN: Patient with acute respiratory failure secondary to COVID-19 infection. The patient's symptoms have been going on for more than 10 days. Currently covered with dexamethasone, Lovenox, zinc and respiratory support; to continue. No need for systemic antibiotic therapy. MMODL / IJN: [id number] /
[2020-07-19 17:30] LABS: Glucose,Whole Blood 223 mg/dL (75-99)
[2020-07-19 18:05] LABS: Glucose,Whole Blood 243 mg/dL (75-99)
[2020-07-19 20:04] LABS: Glucose,Whole Blood 273 mg/dL (75-99)
[2020-07-19] MEDS: ENOXAPARIN 80 MG/0.8 ML SYRINGE SQ SCH (20:20)
--- NOTE | 2020-07-19 20:53 | P.PN ---
Progress Note - Text Progress Note Date: 07/19/20 Chief Complaint: Short of breath History of presenting complaint: This is a pleasant 70-year-old patient of Dr. Borges. Chronic stable medical conditions include diabetes, GERD, hypertension, osteoarthritis. For about a week patient been having symptoms of shortness of breath, cough. She had some diarrhea too. No fever. Decreased appetite. Tired rundown. Patient presents for that to the ER. Came back positive for COVID. Admitted with COVID 19 pneumonia, acute hypoxic respiratory failure. Placed on Lovenox Decadron. High flow oxygen Today-sitting up in a chair. Oral intake fair. On 15 L high flow oxygen. Congested Review of systems: Was done for constitutional, cardiovascular, GI, pulmonary. relevant finding as above Active Medications Acetaminophen (Acetaminophen Tab 325 Mg Tab) 650 mg PO Q6HR PRN PRN Reason: Mild Pain or Fever > 100.5 Albuterol Sulfate (Albuterol Hfa Inhaler) 2 puff INHALATION RT-QID [facility] Last Admin: 07/19/20 19:47 Dose: 2 puff Documented by: Amlodipine Besylate (Amlodipine 10 Mg Tab) 10 mg PO DAILY [facility] Last Admin: 07/19/20 08:16 Dose: 10 mg Documented by: Ascorbic Acid (Ascorbic Acid 500 Mg Tab) 500 mg PO BID [facility] Last Admin: 07/19/20 20:19 Dose: 500 mg Documented by: Benzonatate (Benzonatate 100 Mg Cap) 200 mg PO TID PRN PRN Reason: Cough Cholecalciferol (Cholecalciferol 25 Mcg (1000 Iu) Tablet) 100 mcg PO DAILY [facility] Last Admin: 07/19/20 08:16 Dose: 100 mcg Documented by: Dexamethasone Sodium Phosphate (Dexamethasone Sod Phosphate 10 Mg/Ml 1 Ml Vial) 6 mg IV DAILY [facility] Last Admin: 07/19/20 08:17 Dose: 6 mg Documented by: Enoxaparin Sodium (Enoxaparin 80 Mg/0.8 Ml Syringe) 70 mg SQ Q12HR [facility] Last Admin: 07/19/20 20:20 Dose: 70 mg Documented by: Furosemide (Furosemide 40 Mg Tab) 40 mg PO BID@0900,1600 [facility] Last Admin: 07/19/20 16:24 Dose: 40 mg Documented by: Hydromorphone HCl (Hydromorphone 0.5 Mg/0.5 Ml Syringe) 0.5 mg IVP Q3HR PRN PRN Reason: Moderate Pain Insulin Human Regular 100 unit (/ Sodium Chloride) 101 mls @ 0 mls/hr IV .Q0M [facility]; Protocol Last Admin: 07/19/20 18:45 Dose: 9 units/hr, 9.09 mls/hr Documented by: Insulin Aspart (Insulin Aspart (Novolog) 100 Unit/Ml Vial) 18 unit 0.13 unit/kg (18 unit) SQ AC-TID [facility] Last Admin: 07/19/20 17:30 Dose: 8 unit Documented by: Lisinopril (Lisinopril 20 Mg Tab) 40 mg PO BID [facility] Last Admin: 07/19/20 20:19 Dose: 40 mg Documented by: Loperamide HCl (Loperamide 2 Mg Cap) 2 mg PO QID PRN PRN Reason: Diarrhea Metoprolol Tartrate (Metoprolol Tartrate 50 Mg Tab) 100 mg PO BID [facility] Last Admin: 07/19/20 20:19 Dose: 100 mg Documented by: Naloxone HCl (Naloxone 0.4 Mg/Ml 1 Ml Vial) 0.2 mg IV Q2M PRN PRN Reason: Opioid Reversal Non-Formulary Medication (Dapagliflozin Propanediol [Farxiga]) 10 mg PO DAILY [facility] Last Admin: 07/19/20 07:24 Dose: Not Given Documented by: Ondansetron HCl (Ondansetron 4 Mg/2 Ml Vial) 4 mg IVP Q8HR PRN PRN Reason: Nausea And Vomiting Pantoprazole Sodium (Pantoprazole 40 Mg Tablet) 40 mg PO DAILY [facility] Last Admin: 07/19/20 08:17 Dose: 40 mg Documented by: Potassium Chloride (Potassium Chloride Er 20 Meq Tab.Er) 20 meq PO DAILY [facility] Last Admin: 07/19/20 08:17 Dose: 20 meq Documented by: Pravastatin Sodium (Pravastatin Sodium 20 Mg Tab) 20 mg PO DAILY [facility] Last Admin: 07/19/20 08:16 Dose: 20 mg Documented by: Zinc Sulfate (Zinc Sulfate 220 Mg Cap) 220 mg PO DAILY [facility] Last Admin: 07/19/20 08:16 Dose: 220 mg Documented by: Past medical history to include: Diabetes, GERD, hypertension, osteoarthritis Social history: . No history of smoking and alcohol Family history: Reviewed, noncontributory to presentation Physical examination: VITAL SIGNS: 97.5, 85, 20, 1 10 x 56, 93% on 15 L GENERAL: Sitting up in a chair, a bit congested PSYCH: Alert and oriented x3; mood and affect anxious NEUROLOGICAL: Cranial nerves grossly intact; no facial asymmetry, moving all 4 limbs Rest of the exam per pulmonary and ID INVESTIGATIONS, reviewed in the clinical context: July 19: WBC 8.3 hemoglobin 12.7 potassium 3.9 creatinine 0.59 d-dimer more than 34 CRP 166 WBC 10.4 hemoglobin 13.3 platelets 223 potassium 4.1 creatinine 0.64 CRP 205 pro-calcitonin 0.26 Coronavirus [PCR]-detected EKG tracing personally reviewed by me-normal sinus rhythm Chest x-ray film personally reviewed by me-bilateral scattered infiltrates Assessment and plan: -Bilateral COVID 19 pneumonia with symptoms starting about a week ago. Patient is placed on Lovenox, Decadron, zinc, vitamin C vitamin D.-Not improving -Acute hypoxic respiratory failure patient requiring high flow oxygen 15 L-hard improving -Morbid obesity BMI 53.1. Follow-up for weight loss measures as an outpatient with PCP. -Diabetes mellitus type 2 on oral hypoglycemic, uncontrolled with hyperglycemia. On insulin drip -GERD, continue with Prilosec -Essential hypertension, continue with Vasotec Norvasc Lopressor -Primary osteoarthritis, use pain medications as needed -Hyperlipidemia, continue with Pravachol -DO NOT RESUSCITATE Care was discussed with the patient. Continue current medication.
[2020-07-19 22:10] LABS: Glucose,Whole Blood 239 mg/dL (75-99)
[2020-07-19] MEDS: ACETAMINOPHEN TAB 325 MG TAB PO PRN (23:22)
[2020-07-19 23:56] LABS: Glucose,Whole Blood 164 mg/dL (75-99)
[2020-07-20 02:01] LABS: Glucose,Whole Blood 114 mg/dL (75-99)
[2020-07-20 03:05] LABS: Glucose,Whole Blood 115 mg/dL (75-99)
[2020-07-20 04:07] LABS: Glucose,Whole Blood 145 mg/dL (75-99)
[2020-07-20 06:29] LABS: Glucose,Whole Blood 147 mg/dL (75-99)
[2020-07-20] MEDS: ALBUTEROL HFA INHALER INHALATION SCH ×4 (07:53→19:54)
[2020-07-20 08:13] LABS: Glucose,Whole Blood 183 mg/dL (75-99)
[2020-07-20] MEDS: ZINC SULFATE 220 MG CAP PO SCH (09:11)
[2020-07-20] MEDS: FUROSEMIDE 40 MG TAB PO SCH ×2 (09:11→17:00)
[2020-07-20] MEDS: amLODIPine 10 MG TAB PO SCH (09:11)
[2020-07-20] MEDS: ASCORBIC ACID 500 MG TAB PO SCH ×2 (09:11→22:29)
[2020-07-20] MEDS: ENOXAPARIN 80 MG/0.8 ML SYRINGE SQ SCH ×2 (09:11→22:29)
[2020-07-20] MEDS: DEXAMETHASONE SOD PHOSPHATE 10 MG/ML 1 ML VIAL IV SCH (09:12)
[2020-07-20] MEDS: CHOLECALCIFEROL 25 MCG (1000 IU) TABLET PO SCH (09:13)
[2020-07-20] MEDS: PANTOPRAZOLE 40 MG TABLET PO SCH (09:14)
[2020-07-20] MEDS: METOPROLOL TARTRATE 50 MG TAB PO SCH ×2 (09:14→22:29)
[2020-07-20] MEDS: PRAVASTATIN SODIUM 20 MG TAB PO SCH (09:14)
[2020-07-20] MEDS: POTASSIUM CHLORIDE ER 20 MEQ TAB.ER PO SCH (09:15)
[2020-07-20] MEDS: lisinopriL 20 MG TAB PO SCH ×2 (09:15→22:29)
[2020-07-20] MEDS: INSULIN ASPART (NovoLOG) 100 UNIT/ML VIAL SQ SCH ×3 (09:24→17:00)
[2020-07-20 10:32] LABS: Glucose,Whole Blood 234 mg/dL (75-99)
[2020-07-20] MEDS: NON FORMULARY DRUG (Dapagliflozin Propanediol [Farxiga] 10 MG Tablet) PO SCH (10:59)
[2020-07-20] MEDS ORDERED: FUROSEMIDE 10 MG/ML 4 ML VIAL ONE (12:05)
[2020-07-20 12:08] LABS: Glucose,Whole Blood 213 mg/dL (75-99)
--- NOTE | 2020-07-20 13:53 | P.PN ---
Subjective Progress Note Date: 07/20/20 Principal diagnosis: CoVID 19 pneumonia This is a 62-year-old female that we see in the emergency department. She came to the emergency department on 317, complaining of increasing shortness of breath. She's not been feeling well for at least one month. She's been trying to take care of herself at home. Over the last couple of days, her symptoms got worse. She complains of chest congestion, cough, shortness of breath, fever, chills, muscle aches, and generally just not feeling well. Currently in the emergency department, she is on a nonrebreather mask, and 15 L high flow O2. She's not receiving any IV fluids. Both her and her are here in the emergency department, with COVID 19 pneumonia. She appears to be much sicker, as her oxygen requirements are much higher than her 's. 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 She has a history of diabetes mellitus, GERD, hypertension, and osteoarthritis. She is not a particularly good historian. White count is 10.4, hemoglobin 13.3, hematocrit 40.0, and platelet count 223,000. PT 13.1, INR 1.3, PTT 21.1, and d-dimer 25.52. Sodium 133, potassium 4.1, chloride 79, CO2 21, anion gap 13, BUN 15, creatinine 0.64. LDH is 1571, C-reactive protein is 206. COVID testing was positive. Chest x- rays consistent with bilateral infiltrates. They are rather extensive. The patient is seen today in 07/19/2020 in follow-up on the selective care unit. She is currently sitting up in a chair at the bedside. Awake and alert in no acute distress. Doing a bit better today compared to yesterday. She is still on 15 L high flow nasal cannula. O2 saturation 92%. Currently off the nonrebreather mask. White count 8.3. Hemoglobin 12.7. Lymphocytes 0.4. D- dimer greater than 34. Sodium 134. Potassium 3.9. Creatinine 0.59. C- reactive protein 166. Pro-calcitonin 0.26. She remains on Lovenox, Decadron, vitamin supplements. The patient is seen today 07/20/2020 in follow-up on the selective care unit. She is currently sitting up in bed. Awake and alert in no acute distress. Continues to progress well. Denies any worsening shortness of breath, cough or congestion. She is still requiring 15 L high flow nasal cannula with O2 saturation at 95%. She is on a insulin drip at 8.5 units per hour. 0.9 normal saline at 20 ML's per hour. Blood cultures reveal no growth. D-dimer trending down at 17.78, C-reactive protein 53. She remains on Lovenox 70 mg subcu every 12 hours, dexamethasone, vitamin supplements. Objective - Vital Signs Vital signs: Vital Signs Temp 97.6 F 07/20/20 12:00 Pulse 71 07/20/20 12:00 Resp 16 07/20/20 12:00 BP 107/60 07/20/20 12:00 Pulse Ox 96 07/20/20 12:00 Intake & Output 07/19/20 07/20/20 07/20/20 18:59 06:59 18:59 Intake Total 1133.862 306.205 392.795 Output Total 300 2150 400 Balance 833.862 -1843.795 -7.205 Weight 104.5 kg Intake: Intake, IV Titration 113.862 66.205 34.795 Amount Insulin Regular 100 unit 113.862 66.205 34.795 In Sodium Chloride 0.9% 100 ml @ Titrate IV .Q0M [facility] Rx#:[id number] Oral 1020 240 358 Output: Urine 300 2150 400 Other: Voiding Method Bedside Commode Bedside Commode # Voids 1 - Exam GENERAL EXAM: Alert, pleasant 70-year-old female patient, on 15 L high flow nasal cannula,, comfortable in no apparent distress. HEAD: Normocephalic. EYES: Normal reaction of pupils, equal size. NOSE: Clear with pink turbinates. THROAT: No erythema or exudates. NECK: No masses, no JVD. CHEST: No chest wall deformity. LUNGS: Equal air entry with bilateral scattered rhonchi, crackles in the posterior bases CVS: S1 and S2 normal with no audible murmur, regular rhythm. ABDOMEN: No hepatosplenomegaly, normal bowel sounds, no guarding or rigidity. SPINE: No scoliosis or deformity SKIN: No rashes CENTRAL NERVOUS SYSTEM: No focal deficits, tone is normal in all 4 extremities. EXTREMITIES: There is no peripheral edema. No clubbing, no cyanosis. Peripheral pulses are intact. - Labs CBC & Chem 7: 07/19/20 07:25 07/19/20 07:25 Labs: Abnormal Lab Results - Last 24 Hours (Table) 07/19/20 07/19/20 07/19/20 Range/Units 07:25 14:05 15:58 D-Dimer (<0.60) mg/L FEU POC Glucose (mg/dL) 303 H 277 H (75-99) mg/dL Hemoglobin A1c 8.3 H (4.0-6.0) % C-Reactive Protein (<10.0) mg/L 07/19/20 07/19/20 07/19/20 Range/Units 17:28 17:57 20:02 D-Dimer (<0.60) mg/L FEU POC Glucose (mg/dL) 223 H 243 H 273 H (75-99) mg/dL Hemoglobin A1c (4.0-6.0) % C-Reactive Protein (<10.0) mg/L 07/19/20 07/19/20 07/20/20 Range/Units 22:08 23:55 01:59 D-Dimer (<0.60) mg/L FEU POC Glucose (mg/dL) 239 H 164 H 114 H (75-99) mg/dL Hemoglobin A1c (4.0-6.0) % C-Reactive Protein (<10.0) mg/L 07/20/20 07/20/20 07/20/20 Range/Units 03:02 04:05 06:08 D-Dimer (<0.60) mg/L FEU POC Glucose (mg/dL) 115 H 145 H 147 H (75-99) mg/dL Hemoglobin A1c (4.0-6.0) % C-Reactive Protein (<10.0) mg/L 07/20/20 07/20/20 07/20/20 Range/Units 08:00 08:36 08:36 D-Dimer 17.78 H (<0.60) mg/L FEU POC Glucose (mg/dL) 183 H (75-99) mg/dL Hemoglobin A1c (4.0-6.0) % C-Reactive Protein 53.1 H (<10.0) mg/L 07/20/20 07/20/20 Range/Units 10:29 12:03 D-Dimer (<0.60) mg/L FEU POC Glucose (mg/dL) 234 H 213 H (75-99) mg/dL Hemoglobin A1c (4.0-6.0) % C-Reactive Protein (<10.0) mg/L Microbiology - Last 24 Hours (Table) 07/17/20 23:22 Blood Culture - Preliminary Blood No Growth after 48 hours 07/17/20 22:22 Blood Culture - Preliminary Blood No Growth after 48 hours Assessment and Plan Assessment: 1 Acute hypoxemic respiratory failure secondary to COVID 19 pneumonia/pneumonitis. Not a candidate for Remdesivir, tocilizumab, convalescent plasma 2 Diabetes mellitus. 3 Gastroesophageal reflux disease. 4 Hypertension. 5 Osteoarthritis. Plan: The patient was seen and evaluated by Dr. Carlin We'll continue the current treatment plan Titrate down the FiO2 as tolerated Increase her activity as tolerated Repeat chest x-ray and labs in a.m. We will continue to follow I, the cosigning physician, performed a history & physical examination of the patient. Lungs sounds bilateral rhonchi, crackles in the posterior bases. Maintaining good O2 saturations in the 90s on 15 L high flow nasal cannula. I discussed the assessment and plan of care with my nurse practitioner, Ivette Palumbo. I attest to the above note as dictated by her.
[2020-07-20 15:15] LABS: Glucose,Whole Blood 199 mg/dL (75-99)
[2020-07-20] MEDS: INSULIN REGULAR 100 UNIT in SODIUM CHLORIDE 0.9% 100 ML IV SCH (15:21)
[2020-07-20 16:20] LABS: Glucose,Whole Blood 149 mg/dL (75-99)
[2020-07-20 17:11] LABS: Glucose,Whole Blood 135 mg/dL (75-99)
--- NOTE | 2020-07-20 17:49 | PN ---
PROGRESS NOTE DATE OF SERVICE: 07/20/2020 REASON FOR FOLLOWUP: COVID-19 pneumonia. INTERVAL HISTORY: The patient is currently afebrile. The patient is still requiring high-flow oxygen. Feeling slightly better. The patient denies having any chest pain. She did have a cough, not bringing up any sputum. No nausea, vomiting, abdominal pain or diarrhea. PHYSICAL EXAMINATION: Her blood pressure 107/60 with a pulse of 71, temperature is 97.6, she is 96% on 15 liters high-flow oxygen. GENERAL DESCRIPTION: An elderly female up in the chair in no distress. RESPIRATORY SYSTEM: Unlabored breathing, coarse breath sounds bilaterally. HEART: S1, S2. Regular rate and rhythm. ABDOMEN: Soft, no tenderness. LABS: D-dimer 17.78. CRP 53.1. DIAGNOSTIC IMPRESSION AND PLAN: Patient with acute COVID-19 infection in this patient currently on Lovenox, Decadron. along with respiratory support. Monitor clinical course closely. Continue supportive care. MMODL / IJN: [id number] /
[2020-07-20 19:07] LABS: Glucose,Whole Blood 210 mg/dL (75-99)
[2020-07-20 21:00] LABS: Glucose,Whole Blood 183 mg/dL (75-99)
--- NOTE | 2020-07-20 21:24 | P.PN ---
Progress Note - Text Progress Note Date: 07/20/20 Chief Complaint: Short of breath History of presenting complaint: This is a pleasant 70-year-old patient of Dr. Borges. Chronic stable medical conditions include diabetes, GERD, hypertension, osteoarthritis. For about a week patient been having symptoms of shortness of breath, cough. She had some diarrhea too. No fever. Decreased appetite. Tired rundown. Patient presents for that to the ER. Came back positive for COVID. Admitted with COVID 19 pneumonia, acute hypoxic respiratory failure. Placed on Lovenox Decadron. High flow oxygen Today-remains on high flow oxygen. Tired. Some shortness of breath. Oral intake close to 100% Review of systems: Was done for constitutional, cardiovascular, GI, pulmonary. relevant finding as above Active Medications Acetaminophen (Acetaminophen Tab 325 Mg Tab) 650 mg PO Q6HR PRN PRN Reason: Mild Pain or Fever > 100.5 Last Admin: 07/19/20 23:22 Dose: 650 mg Documented by: Albuterol Sulfate (Albuterol Hfa Inhaler) 2 puff INHALATION RT-QID [facility] Last Admin: 07/20/20 19:54 Dose: 2 puff Documented by: Amlodipine Besylate (Amlodipine 10 Mg Tab) 10 mg PO DAILY [facility] Last Admin: 07/20/20 09:11 Dose: 10 mg Documented by: Ascorbic Acid (Ascorbic Acid 500 Mg Tab) 500 mg PO BID [facility] Last Admin: 07/20/20 09:11 Dose: 500 mg Documented by: Benzonatate (Benzonatate 100 Mg Cap) 200 mg PO TID PRN PRN Reason: Cough Cholecalciferol (Cholecalciferol 25 Mcg (1000 Iu) Tablet) 100 mcg PO DAILY [facility] Last Admin: 07/20/20 09:13 Dose: 100 mcg Documented by: Dexamethasone Sodium Phosphate (Dexamethasone Sod Phosphate 10 Mg/Ml 1 Ml Vial) 6 mg IV DAILY [facility] Last Admin: 07/20/20 09:12 Dose: 6 mg Documented by: Enoxaparin Sodium (Enoxaparin 80 Mg/0.8 Ml Syringe) 70 mg SQ Q12HR [facility] Last Admin: 07/20/20 09:11 Dose: 70 mg Documented by: Furosemide (Furosemide 40 Mg Tab) 40 mg PO BID@0900,1600 [facility] Last Admin: 07/20/20 17:00 Dose: 40 mg Documented by: Hydromorphone HCl (Hydromorphone 0.5 Mg/0.5 Ml Syringe) 0.5 mg IVP Q3HR PRN PRN Reason: Moderate Pain Insulin Human Regular 100 unit (/ Sodium Chloride) 101 mls @ 0 mls/hr IV .Q0M [facility]; Protocol Last Titration: 07/20/20 17:40 Dose: 1 units/hr, 1.01 mls/hr Documented by: Insulin Aspart (Insulin Aspart (Novolog) 100 Unit/Ml Vial) 18 unit 0.13 unit/kg (18 unit) SQ AC-TID [facility] Last Admin: 07/20/20 17:00 Dose: 18 unit Documented by: Lisinopril (Lisinopril 20 Mg Tab) 40 mg PO BID [facility] Last Admin: 07/20/20 09:15 Dose: 40 mg Documented by: Loperamide HCl (Loperamide 2 Mg Cap) 2 mg PO QID PRN PRN Reason: Diarrhea Metoprolol Tartrate (Metoprolol Tartrate 50 Mg Tab) 100 mg PO BID [facility] Last Admin: 07/20/20 09:14 Dose: 100 mg Documented by: Naloxone HCl (Naloxone 0.4 Mg/Ml 1 Ml Vial) 0.2 mg IV Q2M PRN PRN Reason: Opioid Reversal Non-Formulary Medication (Dapagliflozin Propanediol [Farxiga]) 10 mg PO DAILY [facility] Last Admin: 07/20/20 10:59 Dose: Not Given Documented by: Ondansetron HCl (Ondansetron 4 Mg/2 Ml Vial) 4 mg IVP Q8HR PRN PRN Reason: Nausea And Vomiting Pantoprazole Sodium (Pantoprazole 40 Mg Tablet) 40 mg PO DAILY [facility] Last Admin: 07/20/20 09:14 Dose: 40 mg Documented by: Potassium Chloride (Potassium Chloride Er 20 Meq Tab.Er) 20 meq PO DAILY [facility] Last Admin: 07/20/20 09:15 Dose: 20 meq Documented by: Pravastatin Sodium (Pravastatin Sodium 20 Mg Tab) 20 mg PO DAILY [facility] Last Admin: 07/20/20 09:14 Dose: 20 mg Documented by: Zinc Sulfate (Zinc Sulfate 220 Mg Cap) 220 mg PO DAILY [facility] Last Admin: 07/20/20 09:11 Dose: 220 mg Documented by: Past medical history to include: Diabetes, GERD, hypertension, osteoarthritis Social history: . No history of smoking and alcohol Family history: Reviewed, noncontributory to presentation Physical examination: VITAL SIGNS: 97.6, 71, 16, 107/60, 96% on 15 L high flow GENERAL: Sitting up in a chair, a bit congested PSYCH: Alert and oriented x3; mood and affect anxious NEUROLOGICAL: Cranial nerves grossly intact; no facial asymmetry, moving all 4 limbs Rest of the exam per pulmonary and ID INVESTIGATIONS, reviewed in the clinical context: July 20: D-dimer 17.7 CRP 53.1 July 19: WBC 8.3 hemoglobin 12.7 potassium 3.9 creatinine 0.59 d-dimer more than 34 CRP 166 WBC 10.4 hemoglobin 13.3 platelets 223 potassium 4.1 creatinine 0.64 CRP 205 pro-calcitonin 0.26 Coronavirus [PCR]-detected EKG tracing personally reviewed by me-normal sinus rhythm Chest x-ray film personally reviewed by me-bilateral scattered infiltrates Assessment and plan: -Bilateral COVID 19 pneumonia with symptoms starting about a week ago. on Lovenox, Decadron, zinc, vitamin C vitamin D.-Not improving -Acute hypoxic respiratory failure patient requiring high flow oxygen 15 L-slow to respond -Morbid obesity BMI 53.1. Follow-up for weight loss measures as an outpatient with PCP. -Diabetes mellitus type 2 on oral hypoglycemic, uncontrolled with hyperglycemia. On insulin drip-slow to respond -GERD, continue with Prilosec -Essential hypertension, continue with Vasotec Norvasc Lopressor -Primary osteoarthritis, use pain medications as needed -Hyperlipidemia, continue with Pravachol -DO NOT RESUSCITATE discussed with the patient. Continue current medication.
[2020-07-20 23:02] LABS: Glucose,Whole Blood 191 mg/dL (75-99)
[2020-07-21 01:03] LABS: Glucose,Whole Blood 169 mg/dL (75-99)
[2020-07-21 03:07] LABS: Glucose,Whole Blood 161 mg/dL (75-99)
[2020-07-21 05:02] LABS: Glucose,Whole Blood 129 mg/dL (75-99)
[2020-07-21 06:28] LABS: Glucose,Whole Blood 125 mg/dL (75-99)
[2020-07-21 07:05] LABS: Glucose,Whole Blood 130 mg/dL (75-99)
[2020-07-21] MEDS: ALBUTEROL HFA INHALER INHALATION SCH ×4 (07:59→19:35)
--- NOTE | 2020-07-21 08:39 | XR ---
EXAMINATION TYPE: XR chest 1V portable DATE OF EXAM: 07/21/2020 COMPARISON: 07/18/2019 INDICATION: pneumonia TECHNIQUE: Single frontal view of the chest is obtained. FINDINGS: The heart size is normal. The pulmonary vasculature is normal. Peripheral infiltrates are present on the left. Mild scattered infiltrates throughout the right lung base. There may be slight improvement although this could be technical in nature. IMPRESSION: 1. There may be slight improvement in the peripheral lung infiltrates
[2020-07-21 08:52] LABS: C Reactive Protein 33.9 mg/L (<10.0)
[2020-07-21 09:04] LABS: Glucose,Whole Blood 211 mg/dL (75-99)
[2020-07-21] MEDS: DEXAMETHASONE SOD PHOSPHATE 10 MG/ML 1 ML VIAL IV SCH (09:10)
[2020-07-21] MEDS: lisinopriL 20 MG TAB PO SCH ×2 (09:11→20:09)
[2020-07-21] MEDS: METOPROLOL TARTRATE 50 MG TAB PO SCH ×2 (09:11→20:09)
[2020-07-21] MEDS: POTASSIUM CHLORIDE ER 20 MEQ TAB.ER PO SCH (09:11)
[2020-07-21] MEDS: PRAVASTATIN SODIUM 20 MG TAB PO SCH (09:11)
[2020-07-21] MEDS: amLODIPine 10 MG TAB PO SCH (09:11)
[2020-07-21] MEDS: ZINC SULFATE 220 MG CAP PO SCH (09:11)
[2020-07-21] MEDS: FUROSEMIDE 40 MG TAB PO SCH ×2 (09:11→17:23)
[2020-07-21] MEDS: PANTOPRAZOLE 40 MG TABLET PO SCH (09:11)
[2020-07-21] MEDS: INSULIN ASPART (NovoLOG) 100 UNIT/ML VIAL SQ SCH ×3 (09:12→17:23)
[2020-07-21] MEDS: ENOXAPARIN 80 MG/0.8 ML SYRINGE SQ SCH (09:12)
[2020-07-21] MEDS: CHOLECALCIFEROL 25 MCG (1000 IU) TABLET PO SCH (09:12)
[2020-07-21 11:05] LABS: Glucose,Whole Blood 152 mg/dL (75-99)
[2020-07-21] MEDS: NON FORMULARY DRUG (Dapagliflozin Propanediol [Farxiga] 10 MG Tablet) PO SCH (11:19)
[2020-07-21] MEDS: ASCORBIC ACID 500 MG TAB PO SCH ×2 (11:19→20:10)
[2020-07-21 12:55] LABS: Glucose,Whole Blood 182 mg/dL (75-99)
--- NOTE | 2020-07-21 14:02 | P.PN ---
Subjective Progress Note Date: 07/21/20 Principal diagnosis: CoVID 19 pneumonia This is a 62-year-old female that we see in the emergency department. She came to the emergency department on 317, complaining of increasing shortness of breath. She's not been feeling well for at least one month. She's been trying to take care of herself at home. Over the last couple of days, her symptoms got worse. She complains of chest congestion, cough, shortness of breath, fever, chills, muscle aches, and generally just not feeling well. Currently in the emergency department, she is on a nonrebreather mask, and 15 L high flow O2. She's not receiving any IV fluids. Both her and her are here in the emergency department, with COVID 19 pneumonia. She appears to be much sicker, as her oxygen requirements are much higher than her 's. 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 She has a history of diabetes mellitus, GERD, hypertension, and osteoarthritis. She is not a particularly good historian. White count is 10.4, hemoglobin 13.3, hematocrit 40.0, and platelet count 223,000. PT 13.1, INR 1.3, PTT 21.1, and d-dimer 25.52. Sodium 133, potassium 4.1, chloride 79, CO2 21, anion gap 13, BUN 15, creatinine 0.64. LDH is 1571, C-reactive protein is 206. COVID testing was positive. Chest x- rays consistent with bilateral infiltrates. They are rather extensive. The patient is seen today in 07/19/2020 in follow-up on the selective care unit. She is currently sitting up in a chair at the bedside. Awake and alert in no acute distress. Doing a bit better today compared to yesterday. She is still on 15 L high flow nasal cannula. O2 saturation 92%. Currently off the nonrebreather mask. White count 8.3. Hemoglobin 12.7. Lymphocytes 0.4. D- dimer greater than 34. Sodium 134. Potassium 3.9. Creatinine 0.59. C- reactive protein 166. Pro-calcitonin 0.26. She remains on Lovenox, Decadron, vitamin supplements. The patient is seen today 07/20/2020 in follow-up on the selective care unit. She is currently sitting up in bed. Awake and alert in no acute distress. Continues to progress well. Denies any worsening shortness of breath, cough or congestion. She is still requiring 15 L high flow nasal cannula with O2 saturation at 95%. She is on a insulin drip at 8.5 units per hour. 0.9 normal saline at 20 ML's per hour. Blood cultures reveal no growth. D-dimer trending down at 17.78, C-reactive protein 53. She remains on Lovenox 70 mg subcu every 12 hours, dexamethasone, vitamin supplements. Patient seen today 07/21/2020 in follow-up on the selective care unit. Currently sitting up in a chair at the bedside. Awake and alert in no acute distress. She is breathing easier today compared to yesterday. She still does require 15 L high flow nasal cannula to maintain O2 saturations in the 90s. Chest x-ray shows slight improvement in the peripheral lung infiltrates. She remains on a insulin drip at 6.5 units per hour. 0.9 normal saline at 20 ML's per hour. She is continued on Lovenox, dexamethasone, vitamin supplements. D- dimer 11.17. LDH 1260. C-reactive protein 33.9. Objective - Vital Signs Vital signs: Vital Signs Temp 97.7 F 07/21/20 12:00 Pulse 66 07/21/20 12:00 Resp 16 07/21/20 12:10 BP 104/57 07/21/20 12:00 Pulse Ox 98 07/21/20 12:10 Intake & Output 07/20/20 07/21/20 07/21/20 18:59 06:59 18:59 Intake Total 402.297 34.568 383.172 Output Total 9582 200 0559 Balance -1022.703 -565.432 -1016.828 Weight 104 kg Intake: Intake, IV Titration 44.297 34.568 23.172 Amount Insulin Regular 100 unit 44.297 34.568 23.172 In Sodium Chloride 0.9% 100 ml @ Titrate IV .Q0M [facility] Rx#:[id number] Oral 358 360 Output: Urine 5389 [id number] 8692 Other: Voiding Method Bedside Commode Bedside Commode Bedside Commode # Voids 1 # Bowel Movements 1 1 - Exam GENERAL EXAM: Alert, pleasant 70-year-old female patient, on 15 L high flow nasal cannula, comfortable in no apparent distress. HEAD: Normocephalic. EYES: Normal reaction of pupils, equal size. NOSE: Clear with pink turbinates. THROAT: No erythema or exudates. NECK: No masses, no JVD. CHEST: No chest wall deformity. LUNGS: Equal air entry with bilateral scattered rhonchi, crackles in the posterior bases CVS: S1 and S2 normal with no audible murmur, regular rhythm. ABDOMEN: No hepatosplenomegaly, normal bowel sounds, no guarding or rigidity. SPINE: No scoliosis or deformity SKIN: No rashes CENTRAL NERVOUS SYSTEM: No focal deficits, tone is normal in all 4 extremities. EXTREMITIES: There is no peripheral edema. No clubbing, no cyanosis. Peripheral pulses are intact. - Labs CBC & Chem 7: 07/19/20 07:25 07/19/20 07:25 Labs: Abnormal Lab Results - Last 24 Hours (Table) 07/20/20 07/20/20 07/20/20 Range/Units 15:05 16:19 17:01 D-Dimer (<0.60) mg/L FEU POC Glucose (mg/dL) 199 H 149 H 135 H (75-99) mg/dL Lactate Dehydrogenase (313-618) U/L C-Reactive Protein (<10.0) mg/L 07/20/20 07/20/20 07/20/20 Range/Units 19:06 20:58 22:59 D-Dimer (<0.60) mg/L FEU POC Glucose (mg/dL) 210 H 183 H 191 H (75-99) mg/dL Lactate Dehydrogenase (313-618) U/L C-Reactive Protein (<10.0) mg/L 07/21/20 07/21/20 07/21/20 Range/Units 01:02 03:06 05:00 D-Dimer (<0.60) mg/L FEU POC Glucose (mg/dL) 169 H 161 H 129 H (75-99) mg/dL Lactate Dehydrogenase (313-618) U/L C-Reactive Protein (<10.0) mg/L 07/21/20 07/21/20 07/21/20 Range/Units 06:26 07:02 07:31 D-Dimer 11.17 H (<0.60) mg/L FEU POC Glucose (mg/dL) 125 H 130 H (75-99) mg/dL Lactate Dehydrogenase (313-618) U/L C-Reactive Protein (<10.0) mg/L 07/21/20 07/21/20 07/21/20 Range/Units 07:31 09:01 11:03 D-Dimer (<0.60) mg/L FEU POC Glucose (mg/dL) 211 H 152 H (75-99) mg/dL Lactate Dehydrogenase 1268 H (313-618) U/L C-Reactive Protein 33.9 H (<10.0) mg/L 07/21/20 Range/Units 12:54 D-Dimer (<0.60) mg/L FEU POC Glucose (mg/dL) 182 H (75-99) mg/dL Lactate Dehydrogenase (313-618) U/L C-Reactive Protein (<10.0) mg/L Microbiology - Last 24 Hours (Table) 07/17/20 23:22 Blood Culture - Preliminary Blood No Growth after 72 hours 07/17/20 22:22 Blood Culture - Preliminary Blood No Growth after 72 hours Assessment and Plan Assessment: 1 Acute hypoxemic respiratory failure secondary to COVID 19 pneumonia/pneumonitis. Not a candidate for Remdesivir, tocilizumab, convalescent plasma 2 Diabetes mellitus. 3 Gastroesophageal reflux disease. 4 Hypertension. 5 Osteoarthritis. Plan: The patient was seen and evaluated by Dr. Carlin Chest x-ray and labs reviewed Decrease Lovenox to 40 mg subcu twice a day Continue dexamethasone, vitamin supplements Titrate down the FiO2 as tolerated Increase her activity as tolerated We will continue to follow I, the cosigning physician, performed a history & physical examination of the patient. Lungs sounds bilateral rhonchi, crackles in the posterior bases. Maintaining good O2 saturations in the 90s on 15 L high flow nasal cannula. I discussed the assessment and plan of care with my nurse practitioner, Ivette Palumbo. I attest to the above note as dictated by her.
[2020-07-21 15:06] LABS: Glucose,Whole Blood 180 mg/dL (75-99)
[2020-07-21 17:01] LABS: Glucose,Whole Blood 135 mg/dL (75-99)
--- NOTE | 2020-07-21 19:14 | P.PN ---
Progress Note - Text Progress Note Date: 07/21/20 Chief Complaint: Short of breath History of presenting complaint: This is a pleasant 70-year-old patient of Dr. Borges. Chronic stable medical conditions include diabetes, GERD, hypertension, osteoarthritis. For about a week patient been having symptoms of shortness of breath, cough. She had some diarrhea too. No fever. Decreased appetite. Tired rundown. Patient presents for that to the ER. Came back positive for COVID. Admitted with COVID 19 pneumonia, acute hypoxic respiratory failure. Placed on Lovenox Decadron. High flow oxygen Today-oxygen decreased from 15 L to 11 L. Sitting up in a chair. Oral intake about 75%. Shortness of breath. Tired Review of systems: Was done for constitutional, cardiovascular, GI, pulmonary. relevant finding as above Active Medications Acetaminophen (Acetaminophen Tab 325 Mg Tab) 650 mg PO Q6HR PRN PRN Reason: Mild Pain or Fever > 100.5 Last Admin: 07/19/20 23:22 Dose: 650 mg Documented by: Albuterol Sulfate (Albuterol Hfa Inhaler) 2 puff INHALATION RT-QID [facility] Last Admin: 07/21/20 15:41 Dose: 2 puff Documented by: Amlodipine Besylate (Amlodipine 10 Mg Tab) 10 mg PO DAILY [facility] Last Admin: 07/21/20 09:11 Dose: 10 mg Documented by: Ascorbic Acid (Ascorbic Acid 500 Mg Tab) 500 mg PO BID [facility] Last Admin: 07/21/20 11:19 Dose: Not Given Documented by: Benzonatate (Benzonatate 100 Mg Cap) 200 mg PO TID PRN PRN Reason: Cough Cholecalciferol (Cholecalciferol 25 Mcg (1000 Iu) Tablet) 100 mcg PO DAILY [facility] Last Admin: 07/21/20 09:12 Dose: 100 mcg Documented by: Dexamethasone Sodium Phosphate (Dexamethasone Sod Phosphate 10 Mg/Ml 1 Ml Vial) 6 mg IV DAILY [facility] Last Admin: 07/21/20 09:10 Dose: 6 mg Documented by: Enoxaparin Sodium (Enoxaparin 40 Mg/0.4 Ml Syringe) 40 mg SQ Q12HR [facility] Furosemide (Furosemide 40 Mg Tab) 40 mg PO BID@0900,1600 [facility] Last Admin: 07/21/20 17:23 Dose: 40 mg Documented by: Hydromorphone HCl (Hydromorphone 0.5 Mg/0.5 Ml Syringe) 0.5 mg IVP Q3HR PRN PRN Reason: Moderate Pain Insulin Human Regular 100 unit (/ Sodium Chloride) 101 mls @ 0 mls/hr IV .Q0M [facility]; Protocol Last Titration: 07/21/20 18:35 Dose: 1 units/hr, 1.01 mls/hr Documented by: Insulin Aspart (Insulin Aspart (Novolog) 100 Unit/Ml Vial) 18 unit 0.13 unit/kg (18 unit) SQ AC-TID [facility] Last Admin: 07/21/20 17:23 Dose: 18 unit Documented by: Lisinopril (Lisinopril 20 Mg Tab) 40 mg PO BID [facility] Last Admin: 07/21/20 09:11 Dose: 40 mg Documented by: Loperamide HCl (Loperamide 2 Mg Cap) 2 mg PO QID PRN PRN Reason: Diarrhea Metoprolol Tartrate (Metoprolol Tartrate 50 Mg Tab) 100 mg PO BID [facility] Last Admin: 07/21/20 09:11 Dose: 100 mg Documented by: Naloxone HCl (Naloxone 0.4 Mg/Ml 1 Ml Vial) 0.2 mg IV Q2M PRN PRN Reason: Opioid Reversal Non-Formulary Medication (Dapagliflozin Propanediol [Farxiga]) 10 mg PO DAILY [facility] Last Admin: 07/21/20 11:19 Dose: Not Given Documented by: Ondansetron HCl (Ondansetron 4 Mg/2 Ml Vial) 4 mg IVP Q8HR PRN PRN Reason: Nausea And Vomiting Pantoprazole Sodium (Pantoprazole 40 Mg Tablet) 40 mg PO DAILY [facility] Last Admin: 07/21/20 09:11 Dose: 40 mg Documented by: Potassium Chloride (Potassium Chloride Er 20 Meq Tab.Er) 20 meq PO DAILY [facility] Last Admin: 07/21/20 09:11 Dose: 20 meq Documented by: Pravastatin Sodium (Pravastatin Sodium 20 Mg Tab) 20 mg PO DAILY [facility] Last Admin: 07/21/20 09:11 Dose: 20 mg Documented by: Zinc Sulfate (Zinc Sulfate 220 Mg Cap) 220 mg PO DAILY [facility] Last Admin: 07/21/20 09:11 Dose: 220 mg Documented by: Past medical history to include: Diabetes, GERD, hypertension, osteoarthritis Social history: . No history of smoking and alcohol Family history: Reviewed, noncontributory to presentation Physical examination: VITAL SIGNS: 98.4, 76, 16, 118/62, 95% 11 L GENERAL: Sitting up in a chair, short of breath PSYCH: Alert and oriented x3; mood and affect anxious NEUROLOGICAL: Cranial nerves grossly intact; no facial asymmetry, moving all 4 limbs Rest of the exam per pulmonary and ID INVESTIGATIONS, reviewed in the clinical context: July 21: D-dimer 11.1 CRP 33.9 July 20: D-dimer 17.7 CRP 53.1 July 19: WBC 8.3 hemoglobin 12.7 potassium 3.9 creatinine 0.59 d-dimer more than 34 CRP 166 WBC 10.4 hemoglobin 13.3 platelets 223 potassium 4.1 creatinine 0.64 CRP 205 pro-calcitonin 0.26 Coronavirus [PCR]-detected EKG tracing personally reviewed by me-normal sinus rhythm Chest x-ray film personally reviewed by me-bilateral scattered infiltrates Assessment and plan: -Bilateral COVID 19 pneumonia with symptoms starting about a week ago. on Lovenox, Decadron, zinc, vitamin C vitamin D.-Slow to respond -Acute hypoxic respiratory failure patient requiring high flow oxygen 11 L-slow to respond -Morbid obesity BMI 53.1. Follow-up for weight loss measures as an outpatient with PCP. -Diabetes mellitus type 2 on oral hypoglycemic, uncontrolled with hyperglycemia. On insulin drip-slow to respond -GERD, continue with Prilosec -Essential hypertension, continue with Vasotec Norvasc Lopressor -Primary osteoarthritis, use pain medications as needed -Hyperlipidemia, continue with Pravachol -DO NOT RESUSCITATE discussed with the patient. incentive spirometry
[2020-07-21 19:15] LABS: Glucose,Whole Blood 202 mg/dL (75-99)
[2020-07-21] MEDS: INSULIN REGULAR 100 UNIT in SODIUM CHLORIDE 0.9% 100 ML IV SCH (20:06)
[2020-07-21] MEDS: ENOXAPARIN 40 MG/0.4 ML SYRINGE SQ SCH (20:09)
[2020-07-21 21:09] LABS: Glucose,Whole Blood 164 mg/dL (75-99)
[2020-07-21 23:00] LABS: Glucose,Whole Blood 136 mg/dL (75-99)
--- NOTE | 2020-07-21 23:14 | PN ---
PROGRESS NOTE DATE OF SERVICE: 07/21/2020 REASON FOR FOLLOWUP: COVID-19 pneumonia. INTERVAL HISTORY: The patient is currently afebrile. The patient is breathing slightly comfortable today. The patient denies having any chest pain, shortness pain, did have a cough, not bringing up any sputum. No nausea, vomiting. No abdominal pain. No diarrhea. PHYSICAL EXAMINATION: Blood pressure 118/62 with a pulse of 76, temperature 98.4. She is 95% on high-flow nasal cannula oxygen. General description is an elderly female up in the chair in no distress. Respiratory system: Unlabored breathing, decreased breath sounds in the bases. No wheeze. Heart S1, S2. Regular rate and rhythm. Abdomen soft, no tenderness. LABS: No new labs have been obtained today. DIAGNOSTIC IMPRESSION AND PLAN: Patient with acute COVID-19 pneumonia with respiratory failure in this patient and does not qualify for Remdesivir therapy. The patient is currently on Lovenox, Dexamethasone, zinc, ascorbic acid to continue along with respiratory support and monitor clinical course closely. MMODL / IJN: [id number] /
[2020-07-22 01:04] LABS: Glucose,Whole Blood 137 mg/dL (75-99)
[2020-07-22 03:06] LABS: Glucose,Whole Blood 135 mg/dL (75-99)
[2020-07-22 05:27] LABS: Glucose,Whole Blood 128 mg/dL (75-99)
[2020-07-22 06:17] LABS: Glucose,Whole Blood 128 mg/dL (75-99)
[2020-07-22 07:08] LABS: Glucose,Whole Blood 136 mg/dL (75-99)
[2020-07-22] MEDS: INSULIN ASPART (NovoLOG) 100 UNIT/ML VIAL SQ SCH ×3 (07:10→17:19)
[2020-07-22 08:10] LABS: Glucose,Whole Blood 158 mg/dL (75-99)
[2020-07-22] MEDS: ALBUTEROL HFA INHALER INHALATION SCH ×4 (08:14→19:55)
[2020-07-22] MEDS: DEXAMETHASONE SOD PHOSPHATE 10 MG/ML 1 ML VIAL IV SCH (09:31)
[2020-07-22] MEDS: amLODIPine 10 MG TAB PO SCH (09:33)
[2020-07-22] MEDS: CHOLECALCIFEROL 25 MCG (1000 IU) TABLET PO SCH (09:33)
[2020-07-22] MEDS: ASCORBIC ACID 500 MG TAB PO SCH ×2 (09:33→20:15)
[2020-07-22] MEDS: ENOXAPARIN 40 MG/0.4 ML SYRINGE SQ SCH ×2 (09:34→20:15)
[2020-07-22] MEDS: FUROSEMIDE 40 MG TAB PO SCH ×2 (09:34→16:02)
[2020-07-22] MEDS: NON FORMULARY DRUG (Dapagliflozin Propanediol [Farxiga] 10 MG Tablet) PO SCH (09:34)
[2020-07-22] MEDS: lisinopriL 20 MG TAB PO SCH ×2 (09:34→20:15)
[2020-07-22] MEDS: POTASSIUM CHLORIDE ER 20 MEQ TAB.ER PO SCH (09:35)
[2020-07-22] MEDS: PRAVASTATIN SODIUM 20 MG TAB PO SCH (09:35)
[2020-07-22] MEDS: METOPROLOL TARTRATE 50 MG TAB PO SCH ×2 (09:35→20:15)
[2020-07-22] MEDS: PANTOPRAZOLE 40 MG TABLET PO SCH (09:35)
[2020-07-22] MEDS: ZINC SULFATE 220 MG CAP PO SCH (09:37)
--- NOTE | 2020-07-22 09:53 | P.PN ---
Subjective Progress Note Date: 07/22/20 CoVID 19 pneumonia This is a 62-year-old female that we see in the emergency department. She came to the emergency department on 317, complaining of increasing shortness of josh th. She's not been feeling well for at least one month. She's been trying to take care of herself at home. Over the last couple of days, her symptoms got worse. She complains of chest congestion, cough, shortness of breath, fever, chills, muscle aches, and generally just not feeling well. Currently in the emergency department, she is on a nonrebreather mask, and 15 L high flow O2. She's not receiving any IV fluids. Both her and her are here in the emergency department, with COVID 19 pneumonia. She appears to be much sicker, as her oxygen requirements are much higher than her 's. 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 She has a history of diabetes mellitus, GERD, hypertension, and osteoarthritis. She is not a particularly good historian. White count is 10.4, hemoglobin 13.3, hematocrit 40.0, and platelet count 223,000. PT 13.1, INR 1.3, PTT 21.1, and d-dimer 25.52. Sodium 133, potassium 4.1, chloride 79, CO2 21, anion gap 13, BUN 15, creatinine 0.64. LDH is 1571, C-reactive protein is 206. COVID testing was positive. Chest x-rays consistent with bilateral infiltrates. They are rather extensive. The patient is seen today in 07/19/2020 in follow-up on the selective care unit. She is currently sitting up in a chair at the bedside. Awake and alert in no acute distress. Doing a bit better today compared to yesterday. She is still on 15 L high flow nasal cannula. O2 saturation 92%. Currently off the nonrebreather mask. White count 8.3. Hemoglobin 12.7. Lymphocytes 0.4. D- dimer greater than 34. Sodium 134. Potassium 3.9. Creatinine 0.59. C- reactive protein 166. Pro-calcitonin 0.26. She remains on Lovenox, Decadron, vitamin supplements. The patient is seen today 07/20/2020 in follow-up on the selective care unit. She is currently sitting up in bed. Awake and alert in no acute distress. Continues to progress well. Denies any worsening shortness of breath, cough or congestion. She is still requiring 15 L high flow nasal cannula with O2 saturation at 95%. She is on a insulin drip at 8.5 units per hour. 0.9 normal saline at 20 ML's per hour. Blood cultures reveal no growth. D-dimer trending down at 17.78, C-reactive protein 53. She remains on Lovenox 70 mg subcu every 12 hours, dexamethasone, vitamin supplements. Patient seen today 07/21/2020 in follow-up on the selective care unit. Cu rrently sitting up in a chair at the bedside. Awake and alert in no acute distress. She is breathing easier today compared to yesterday. She still does require 15 L high flow nasal cannula to maintain O2 saturations in the 90s. Chest x-ray shows slight improvement in the peripheral lung infiltrates. She remains on a insulin drip at 6.5 units per hour. 0.9 normal saline at 20 ML's per hour. She is continued on Lovenox, dexamethasone, vitamin supplements. D- dimer 11.17. LDH 1260. C-reactive protein 33.9. On 07/22/2020 the patient is being seen for a follow-up. Is a 62-year-old female patient who presented with worsening shortness of breath. The patient was treated for acute hypoxic respiratory failure and the patient was diagnosed having pneumonia secondary to Covid 19. The patient Not a candidate for Remdesivir, tocilizumab, convalescent plasma. Note that the patient has not been feeling well for at least a month. She has been taking care of her self at home. When she presented to the hospital, she was diagnosed having Covid 19 and she was quite out of the window for the conventional treatment. The patient is currently on 11 L of oxygen by nasal cannula with a pulse ox of 95%. Inflammatory markers are being monitored. The patient had an elevated d-dimer and the patient is currently on Lovenox 40 mg subcu every 12 hours. The patient remains on Decadron 6 mg IV every 24 hours. Patient is also on insulin drip for blood sugar control 3.5 U/hr , The patient is having elevated blood sugars. Rest of the outpatient medications have been ordered resume. The patient is currently on 15 L of oxygen by nasal cannula. Her pulse ox currently is at 98%. She was Down to 11 L. Her last chest x-rays from yesterday and it showed bilateral pulmonary infiltrates, peripheral, improved compared to the earlier chest x-ray from 07/17/2020. The patient had a d-dimer of 11.1 which is down trending. The LDH was 1268 at this is also down trending. Objective - Vital Signs Vital signs: Vital Signs Temp 97.0 F L 07/22/20 08:00 Pulse 72 07/22/20 08:00 Resp 18 07/22/20 08:00 BP 138/64 07/22/20 08:00 Pulse Ox 98 07/22/20 08:00 Intake & Output 07/21/20 07/22/20 07/22/20 18:59 06:59 18:59 Intake Total 532.058 385.444 780.859 Output Total 1400 1450 Balance -867.942 -1064.556 780.859 Weight 106.2 kg Intake: Intake, IV Titration 52.058 25.444 0.859 Amount Insulin Regular 100 unit 52.058 25.444 0.859 In Sodium Chloride 0.9% 100 ml @ Titrate IV .Q0M [facility] Rx#:[id number] Oral 480 360 780 Output: Urine 1400 1450 Other: Voiding Method Bedside Commode Bedside Commode Bedside Commode # Voids 1 1 1 # Bowel Movements 1 1 - Exam GENERAL EXAM: Alert, pleasant 70-year-old female patient, on 11 L high flow nasal cannula, comfortable in no apparent distress. HEAD: Normocephalic. EYES: Normal reaction of pupils, equal size. NOSE: Clear with pink turbinates. THROAT: No erythema or exudates. NECK: No masses, no JVD. CHEST: No chest wall deformity. LUNGS: Equal air entry with bilateral scattered rhonchi, crackles in the posterior bases CVS: S1 and S2 normal with no audible murmur, regular rhythm. ABDOMEN: No hepatosplenomegaly, normal bowel sounds, no guarding or rigidity. SPINE: No scoliosis or deformity SKIN: No rashes CENTRAL NERVOUS SYSTEM: No focal deficits, tone is normal in all 4 extremities. EXTREMITIES: There is no peripheral edema. No clubbing, no cyanosis. Peripheral pulses are intact. - Labs CBC & Chem 7: 07/19/20 07:25 07/19/20 07:25 Labs: Abnormal Lab Results - Last 24 Hours (Table) 07/21/20 07/21/20 07/21/20 Range/Units 11:03 12:54 15:05 POC Glucose (mg/dL) 152 H 182 H 180 H (75-99) mg/dL 07/21/20 07/21/20 07/21/20 Range/Units 16:59 19:13 21:08 POC Glucose (mg/dL) 135 H 202 H 164 H (75-99) mg/dL 07/21/20 07/22/20 07/22/20 Range/Units 22:59 01:02 02:58 POC Glucose (mg/dL) 136 H 137 H 135 H (75-99) mg/dL 07/22/20 07/22/20 07/22/20 Range/Units 05:25 06:16 07:07 POC Glucose (mg/dL) 128 H 128 H 136 H (75-99) mg/dL 07/22/20 Range/Units 08:01 POC Glucose (mg/dL) 158 H (75-99) mg/dL Microbiology - Last 24 Hours (Table) 07/17/20 23:22 Blood Culture - Preliminary Blood No Growth after 96 hours 07/17/20 22:22 Blood Culture - Preliminary Blood No Growth after 96 hours Assessment and Plan Plan: 1 Acute hypoxemic respiratory failure secondary to COVID 19 pneumonia/pneumonitis. Not a candidate for Remdesivir, tocilizumab, convalescent plasma as the patient fell out of the window for this conventional treatments. The patient is currently on 11 L about 2 by nasal cannula. The patient is on Decadron. The patient is also on insulin drip for blood sugar control. D-dimer is elevated. Inflammatory markers are being monitored. The patient is on Lovenox 40 mg subcu every 12 hours. 2 Diabetes mellitus. The patient developed steroid-induced hyperglycemia and the patient is currently on insulin drip for blood sugar control 3 Gastroesophageal reflux disease. 4 Hypertension. 5 Osteoarthritis. Plan: Chest x-ray and labs reviewed Decrease Lovenox to 40 mg subcu twice a day Continue dexamethasone, vitamin supplements Titrate down the FiO2 as tolerated, currently on 11 L of oxygen by nasal cannula and will try to wean FiO2 further as long as a saturation above 90% Repeat chest x-ray in the morning Recheck inflammatory markers Increase her activity as tolerated We will continue to follow
[2020-07-22 10:07] LABS: Glucose,Whole Blood 139 mg/dL (75-99)
[2020-07-22 12:02] LABS: Glucose,Whole Blood 148 mg/dL (75-99)
[2020-07-22 14:25] LABS: Glucose,Whole Blood 259 mg/dL (75-99)
[2020-07-22 16:09] LABS: Glucose,Whole Blood 202 mg/dL (75-99)
[2020-07-22 18:01] LABS: Glucose,Whole Blood 263 mg/dL (75-99)
[2020-07-22 20:05] LABS: Glucose,Whole Blood 233 mg/dL (75-99)
[2020-07-22] MEDS: INSULIN REGULAR 100 UNIT in SODIUM CHLORIDE 0.9% 100 ML IV SCH (20:14)
[2020-07-22 22:03] LABS: Glucose,Whole Blood 210 mg/dL (75-99)
--- NOTE | 2020-07-22 22:05 | P.PN ---
Progress Note - Text Progress Note Date: 07/22/20 Chief Complaint: Short of breath History of presenting complaint: This is a pleasant 70-year-old patient of Dr. Borges. Chronic stable medical conditions include diabetes, GERD, hypertension, osteoarthritis. For about a week patient been having symptoms of shortness of breath, cough. She had some diarrhea too. No fever. Decreased appetite. Tired rundown. Patient presents for that to the ER. Came back positive for COVID. Admitted with COVID 19 pneumonia, acute hypoxic respiratory failure. Placed on Lovenox Decadron. High flow oxygen Today-up in a chair. Oral intake between 75-100%. FiO2 dropped to 9 L. Review of systems: Was done for constitutional, cardiovascular, GI, pulmonary. relevant finding as above Active Medications Acetaminophen (Acetaminophen Tab 325 Mg Tab) 650 mg PO Q6HR PRN PRN Reason: Mild Pain or Fever > 100.5 Last Admin: 07/19/20 23:22 Dose: 650 mg Documented by: Albuterol Sulfate (Albuterol Hfa Inhaler) 2 puff INHALATION RT-QID [facility] Last Admin: 07/22/20 19:55 Dose: 2 puff Documented by: Amlodipine Besylate (Amlodipine 10 Mg Tab) 10 mg PO DAILY [facility] Last Admin: 07/22/20 09:33 Dose: 10 mg Documented by: Ascorbic Acid (Ascorbic Acid 500 Mg Tab) 500 mg PO BID [facility] Last Admin: 07/22/20 20:15 Dose: 500 mg Documented by: Benzonatate (Benzonatate 100 Mg Cap) 200 mg PO TID PRN PRN Reason: Cough Cholecalciferol (Cholecalciferol 25 Mcg (1000 Iu) Tablet) 100 mcg PO DAILY [facility] Last Admin: 07/22/20 09:33 Dose: 100 mcg Documented by: Dexamethasone Sodium Phosphate (Dexamethasone Sod Phosphate 10 Mg/Ml 1 Ml Vial) 6 mg IV DAILY [facility] Last Admin: 07/22/20 09:31 Dose: 6 mg Documented by: Enoxaparin Sodium (Enoxaparin 40 Mg/0.4 Ml Syringe) 40 mg SQ Q12HR [facility] Last Admin: 07/22/20 20:15 Dose: 40 mg Documented by: Furosemide (Furosemide 40 Mg Tab) 40 mg PO BID@0900,1600 [facility] Last Admin: 07/22/20 16:02 Dose: 40 mg Documented by: Hydromorphone HCl (Hydromorphone 0.5 Mg/0.5 Ml Syringe) 0.5 mg IVP Q3HR PRN PRN Reason: Moderate Pain Insulin Human Regular 100 unit (/ Sodium Chloride) 101 mls @ 0 mls/hr IV .Q0M [facility]; Protocol Last Titration: 07/22/20 22:02 Dose: 6 units/hr, 6.06 mls/hr Documented by: Insulin Aspart (Insulin Aspart (Novolog) 100 Unit/Ml Vial) 18 unit 0.13 unit/kg (18 unit) SQ AC-TID [facility] Last Admin: 07/22/20 17:19 Dose: 18 unit Documented by: Lisinopril (Lisinopril 20 Mg Tab) 40 mg PO BID [facility] Last Admin: 07/22/20 20:15 Dose: 40 mg Documented by: Loperamide HCl (Loperamide 2 Mg Cap) 2 mg PO QID PRN PRN Reason: Diarrhea Metoprolol Tartrate (Metoprolol Tartrate 50 Mg Tab) 100 mg PO BID [facility] Last Admin: 07/22/20 20:15 Dose: 100 mg Documented by: Naloxone HCl (Naloxone 0.4 Mg/Ml 1 Ml Vial) 0.2 mg IV Q2M PRN PRN Reason: Opioid Reversal Non-Formulary Medication (Dapagliflozin Propanediol [Farxiga]) 10 mg PO DAILY [facility] Last Admin: 07/22/20 09:34 Dose: Not Given Documented by: Ondansetron HCl (Ondansetron 4 Mg/2 Ml Vial) 4 mg IVP Q8HR PRN PRN Reason: Nausea And Vomiting Pantoprazole Sodium (Pantoprazole 40 Mg Tablet) 40 mg PO DAILY [facility] Last Admin: 07/22/20 09:35 Dose: 40 mg Documented by: Potassium Chloride (Potassium Chloride Er 20 Meq Tab.Er) 20 meq PO DAILY [facility] Last Admin: 07/22/20 09:35 Dose: 20 meq Documented by: Pravastatin Sodium (Pravastatin Sodium 20 Mg Tab) 20 mg PO DAILY [facility] Last Admin: 07/22/20 09:35 Dose: 20 mg Documented by: Zinc Sulfate (Zinc Sulfate 220 Mg Cap) 220 mg PO DAILY [facility] Last Admin: 07/22/20 09:37 Dose: 220 mg Documented by: Past medical history to include: Diabetes, GERD, hypertension, osteoarthritis Social history: . No history of smoking and alcohol Family history: Reviewed, noncontributory to presentation Physical examination: VITAL SIGNS: 97.6, 68, 16, 128 x 61, 96% on 9 L GENERAL: Sitting up in a chair, short of breath PSYCH: Alert and oriented x3; mood and affect anxious NEUROLOGICAL: Cranial nerves grossly intact; no facial asymmetry, moving all 4 limbs Rest of the exam per pulmonary and ID INVESTIGATIONS, reviewed in the clinical context: July 21: D-dimer 11.1 CRP 33.9 July 20: D-dimer 17.7 CRP 53.1 July 19: WBC 8.3 hemoglobin 12.7 potassium 3.9 creatinine 0.59 d-dimer more than 34 CRP 166 WBC 10.4 hemoglobin 13.3 platelets 223 potassium 4.1 creatinine 0.64 CRP 205 pro-calcitonin 0.26 Coronavirus [PCR]-detected EKG tracing personally reviewed by me-normal sinus rhythm Chest x-ray film personally reviewed by me-bilateral scattered infiltrates Assessment and plan: -Bilateral COVID 19 pneumonia with symptoms starting about a week ago. on Lovenox, Decadron, zinc, vitamin C vitamin D.-Slowly improving -Acute hypoxic respiratory failure patient requiring high flow oxygen 9 L-slow to respond -Morbid obesity BMI 53.1. Follow-up for weight loss measures as an outpatient with PCP. -Diabetes mellitus type 2 on oral hypoglycemic, uncontrolled with hyperglycemia. On insulin drip-slow to respond -GERD, continue with Prilosec -Essential hypertension, continue with Vasotec Norvasc Lopressor -Primary osteoarthritis, use pain medications as needed -Hyperlipidemia, continue with Pravachol -DO NOT RESUSCITATE discussed with the patient. incentive spirometry. Follow with pulmonary
[2020-07-23 00:15] LABS: Glucose,Whole Blood 160 mg/dL (75-99)
--- NOTE | 2020-07-23 00:19 | PN ---
PROGRESS NOTE DATE OF SERVICE: 07/22/2020 REASON FOR FOLLOWUP: COVID-19 infection. INTERVAL HISTORY: The patient is currently afebrile. The patient is breathing slightly comfortably. The patient denies having any chest pain. She did have a cough, occasional sputum. No abdominal pain. Did have some diarrhea. PHYSICAL EXAMINATION: Her blood pressure is 115/65, pulse of 63, temperature 97.7. She is 94% on 6 L nasal cannula. General description is an elderly female lying in bed in no distress. RESPIRATORY SYSTEM: Unlabored breathing with decreased intensity of breath sounds. No wheeze. HEART: S1, S2. Regular rate and rhythm. ABDOMEN: Soft. No tenderness. LABS: Blood culture has been negative. DIAGNOSTIC IMPRESSION AND PLAN: Patient with acute COVID-19 infection. Patient has presented more than 2 weeks since the starting of her symptoms and was not considered to be a candidate for remdesivir. The patient is currently on ascorbic acid, dexamethasone, Lovenox and zinc; to continue along with respiratory support and monitor clinical course closely. MMODL / IJN: [id number] /
[2020-07-23 02:02] LABS: Glucose,Whole Blood 132 mg/dL (75-99)
[2020-07-23 04:05] LABS: Glucose,Whole Blood 118 mg/dL (75-99)
[2020-07-23 05:02] LABS: Glucose,Whole Blood 126 mg/dL (75-99)
[2020-07-23 06:03] LABS: Glucose,Whole Blood 118 mg/dL (75-99)
[2020-07-23 07:02] LABS: Glucose,Whole Blood 143 mg/dL (75-99)
[2020-07-23 08:04] LABS: African American GFR (CKD) >90 (>60 ml/min/1.73 sqM); Anion Gap 6 mmol/L; Blood Urea Nitrogen 20 mg/dL (7-17); C Reactive Protein 18.6 mg/L (<10.0); Calcium 9.6 mg/dL (8.4-10.2); Carbon Dioxide 29 mmol/L (22-30); Chloride 98 mmol/L (98-107); Glucose 130 mg/dL (74-99); LDH 930 U/L (313-618); Non-African American GFR(CKD) >90 (>60 ml/min/1.73 sqM); Potassium 4.6 mmol/L (3.5-5.1); Sodium 133 mmol/L (137-145)
[2020-07-23] MEDS: ALBUTEROL HFA INHALER INHALATION SCH ×4 (08:07→18:59)
--- NOTE | 2020-07-23 08:13 | XR ---
EXAMINATION TYPE: XR chest 1V portable DATE OF EXAM: 07/23/2020 COMPARISON: 07/21/2020 HISTORY: Shortness of breath TECHNIQUE: Single frontal view of the chest is obtained. FINDINGS: Heart size normal. No pleural effusion or pneumothorax. Underlying COPD suspected. Arthrop athy of the shoulders. Patchy bilateral infiltrates greater on the left are stable. IMPRESSION: 1. Patchy bilateral infiltrates greater on the left
[2020-07-23 09:02] LABS: Glucose,Whole Blood 186 mg/dL (75-99)
[2020-07-23] MEDS: INSULIN ASPART (NovoLOG) 100 UNIT/ML VIAL SQ SCH ×3 (09:02→17:03)
[2020-07-23] MEDS: amLODIPine 10 MG TAB PO SCH (09:14)
[2020-07-23] MEDS: ASCORBIC ACID 500 MG TAB PO SCH ×2 (09:14→20:12)
[2020-07-23] MEDS: CHOLECALCIFEROL 25 MCG (1000 IU) TABLET PO SCH (09:14)
[2020-07-23] MEDS: FUROSEMIDE 40 MG TAB PO SCH ×2 (09:15→16:07)
[2020-07-23] MEDS: NON FORMULARY DRUG (Dapagliflozin Propanediol [Farxiga] 10 MG Tablet) PO SCH (09:15)
[2020-07-23] MEDS: lisinopriL 20 MG TAB PO SCH ×2 (09:15→20:11)
[2020-07-23] MEDS: DEXAMETHASONE SOD PHOSPHATE 10 MG/ML 1 ML VIAL IV SCH (09:15)
[2020-07-23] MEDS: ENOXAPARIN 40 MG/0.4 ML SYRINGE SQ SCH ×2 (09:15→20:12)
[2020-07-23] MEDS: POTASSIUM CHLORIDE ER 20 MEQ TAB.ER PO SCH (09:16)
[2020-07-23] MEDS: PRAVASTATIN SODIUM 20 MG TAB PO SCH (09:16)
[2020-07-23] MEDS: ZINC SULFATE 220 MG CAP PO SCH (09:16)
[2020-07-23] MEDS: METOPROLOL TARTRATE 50 MG TAB PO SCH ×2 (09:16→20:12)
[2020-07-23] MEDS: PANTOPRAZOLE 40 MG TABLET PO SCH (09:16)
--- NOTE | 2020-07-23 10:45 | P.PN ---
Subjective Progress Note Date: 07/23/20 This is a 62-year-old female that we see in the emergency department. She came to the emergency department on 317, complaining of increasing shortness of breath. She's not been feeling well for at least one month. She's been trying to take care of herself at home. Over the last couple of days, her symptoms got worse. She complains of chest congestion, cough, shortness of breath, fever, chills, muscle aches, and generally just not feeling well. Currently in the emergency department, she is on a nonrebreather mask, and 15 L high flow O2. She's not receiving any IV fluids. Both her and her are here in the emergency department, with COVID 19 pneumonia. She appears to be much sicker, as her oxygen requirements are much higher than her 's. 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 She has a history of diabetes mellitus, GERD, hypertension, and osteoarthritis. She is not a particularly good historian. White count is 10.4, hemoglobin 13.3, hematocrit 40.0, and platelet count 223,000. PT 13.1, INR 1.3, PTT 21.1, and d-dimer 25.52. Sodium 133, potassium 4.1, chloride 79, CO2 21, anion gap 13, BUN 15, creatinine 0.64. LDH is 1571, C-reactive protein is 206. COVID testing was positive. Chest x- rays consistent with bilateral infiltrates. They are rather extensive. The patient is seen today in 07/19/2020 in follow-up on the selective care unit. She is currently sitting up in a chair at the bedside. Awake and alert in no acute distress. Doing a bit better today compared to yesterday. She is still on 15 L high flow nasal cannula. O2 saturation 92%. Currently off the nonrebreather mask. White count 8.3. Hemoglobin 12.7. Lymphocytes 0.4. D- dimer greater than 34. Sodium 134. Potassium 3.9. Creatinine 0.59. C- reactive protein 166. Pro-calcitonin 0.26. She remains on Lovenox, Decadron, vitamin supplements. The patient is seen today 07/20/2020 in follow-up on the selective care unit. She is currently sitting up in bed. Awake and alert in no acute distress. Continues to progress well. Denies any worsening shortness of breath, cough or congestion. She is still requiring 15 L high flow nasal cannula with O2 saturat ion at 95%. She is on a insulin drip at 8.5 units per hour. 0.9 normal saline at 20 ML's per hour. Blood cultures reveal no growth. D-dimer trending down at 17.78, C-reactive protein 53. She remains on Lovenox 70 mg subcu every 12 hours, dexamethasone, vitamin supplements. Patient seen today 07/21/2020 in follow-up on the selective care unit. Currently sitting up in a chair at the bedside. Awake and alert in no acute distress. She is breathing easier today compared to yesterday. She still does require 15 L high flow nasal cannula to maintain O2 saturations in the 90s. Chest x-ray shows slight improvement in the peripheral lung infiltrates. She remains on a insulin drip at 6.5 units per hour. 0.9 normal saline at 20 ML's per hour. She is continued on Lovenox, dexamethasone, vitamin supplements. D- dimer 11.17. LDH 1260. C-reactive protein 33.9. On 07/22/2020 the patient is being seen for a follow-up. Is a 62-year-old female patient who presented with worsening shortness of breath. The patient was treated for acute hypoxic respiratory failure and the patient was diagnosed having pneumonia secondary to Covid 19. The patient Not a candidate for Remdesivir, tocilizumab, convalescent plasma. Note that the patient has not been feeling well for at least a month. She has been taking care of her self at home. When she presented to the hospital, she was diagnosed having Covid 19 and she was quite out of the window for the conventional treatment. The patient is currently on 11 L of oxygen by nasal cannula with a pulse ox of 95%. Inflammatory markers are being monitored. The patient had an elevated d-dimer and the patient is currently on Lovenox 40 mg subcu every 12 hours. The patient remains on Decadron 6 mg IV every 24 hours. Patient is also on insulin drip for blood sugar control 3.5 U/hr , The patient is having elevated blood sugars. Rest of the outpatient medications have been ordered resume. The patient is currently on 15 L of oxygen by nasal cannula. Her pulse ox currently is at 98%. She was Down to 11 L. Her last chest x-rays from yesterday and it showed bilateral pulmonary infiltrates, peripheral, improved compared to the earlier chest x-ray from 07/17/2020. The patient had a d-dimer of 11.1 which is down trending. The LDH was 1268 at this is also down trending. 07/22/2020, the patient is down to 6 L about 2 by nasal cannula and his oxygenation has improved. The chest x-ray was repeated and there is probably some improvement in the pulmonary infiltrate that was peripherally distributed on the left. Right lung is essentially the same. Nevertheless, there is obvious improvement in the oxygenation knowing that she got wean down significantly from yesterday down to 6 L. No significant cough or sputum production. She remains on Decadron 6 mg IV every 24 hours. D-dimer is down and is been persistently going down to 8.9. LDH is down to 9:30, CRP is down to 18.6. As such, all of the inflammatory markers are also improving. She remains on insulin drip at 5 units an hour and the blood sugars being monitored accord ingly. This is the medication remains unchanged. She was not a candidate for Remdesivir, tocilizumab, convalescent plasma Objective - Vital Signs Vital signs: Vital Signs Temp 97.7 F 07/23/20 08:00 Pulse 66 07/23/20 08:00 Resp 16 07/23/20 08:00 BP 130/61 07/23/20 08:00 Pulse Ox 94 L 07/23/20 08:00 Intake & Output 07/22/20 07/23/20 07/23/20 18:59 06:59 18:59 Intake Total 1240.636 717.259 544.924 Output Total 1400 2150 450 Balance -159.364 -1432.741 94.924 Weight 99.5 kg Intake: Intake, IV Titration 40.636 57.259 4.924 Amount Insulin Regular 100 unit 40.636 57.259 4.924 In Sodium Chloride 0.9% 100 ml @ Titrate IV .Q0M [facility] Rx#:[id number] Oral 1200 660 540 Output: Urine 1400 2150 450 Other: Voiding Method Bedside Commode Bedside Commode Bedside Commode # Voids 1 2 1 # Bowel Movements 1 1 - Exam GENERAL EXAM: Alert, pleasant 70-year-old female patient, on 6 L high flow nasal cannula, comfortable in no apparent distress. HEAD: Normocephalic. EYES: Normal reaction of pupils, equal size. NOSE: Clear with pink turbinates. THROAT: No erythema or exudates. NECK: No masses, no JVD. CHEST: No chest wall deformity. LUNGS: Equal air entry with bilateral scattered rhonchi, crackles in the posterior bases CVS: S1 and S2 normal with no audible murmur, regular rhythm. ABDOMEN: No hepatosplenomegaly, normal bowel sounds, no guarding or rigidity. SPINE: No scoliosis or deformity SKIN: No rashes CENTRAL NERVOUS SYSTEM: No focal deficits, tone is normal in all 4 extremities. EXTREMITIES: There is no peripheral edema. No clubbing, no cyanosis. Peripheral pulses are intact. - Labs CBC & Chem 7: 07/19/20 07:25 07/23/20 06:46 Labs: Abnormal Lab Results - Last 24 Hours (Table) 07/22/20 07/22/20 07/22/20 Range/Units 12:00 14:24 16:01 D-Dimer (<0.60) mg/L FEU Sodium (137-145) mmol/L BUN (7-17) mg/dL Glucose (74-99) mg/dL POC Glucose (mg/dL) 148 H 259 H 202 H (75-99) mg/dL Lactate Dehydrogenase (313-618) U/L C-Reactive Protein (<10.0) mg/L 07/22/20 07/22/20 07/22/20 Range/Units 17:58 20:03 22:01 D-Dimer (<0.60) mg/L FEU Sodium (137-145) mmol/L BUN (7-17) mg/dL Glucose (74-99) mg/dL POC Glucose (mg/dL) 263 H 233 H 210 H (75-99) mg/dL Lactate Dehydrogenase (313-618) U/L C-Reactive Protein (<10.0) mg/L 07/23/20 07/23/20 07/23/20 Range/Units 00:04 02:00 04:03 D-Dimer (<0.60) mg/L FEU Sodium (137-145) mmol/L BUN (7-17) mg/dL Glucose (74-99) mg/dL POC Glucose (mg/dL) 160 H 132 H 118 H (75-99) mg/dL Lactate Dehydrogenase (313-618) U/L C-Reactive Protein (<10.0) mg/L 07/23/20 07/23/20 07/23/20 Range/Units 05:00 06:02 06:46 D-Dimer 8.94 H (<0.60) mg/L FEU Sodium (137-145) mmol/L BUN (7-17) mg/dL Glucose (74-99) mg/dL POC Glucose (mg/dL) 126 H 118 H (75-99) mg/dL Lactate Dehydrogenase (313-618) U/L C-Reactive Protein (<10.0) mg/L 07/23/20 07/23/20 07/23/20 Range/Units 06:46 07:00 09:00 D-Dimer (<0.60) mg/L FEU Sodium 133 L (137-145) mmol/L BUN 20 H (7-17) mg/dL Glucose 130 H (74-99) mg/dL POC Glucose (mg/dL) 143 H 186 H (75-99) mg/dL Lactate Dehydrogenase 930 H (313-618) U/L C-Reactive Protein 18.6 H (<10.0) mg/L Microbiology - Last 24 Hours (Table) 07/17/20 23:22 Blood Culture - Preliminary Blood No Growth after 120 hours 07/17/20 22:22 Blood Culture - Preliminary Blood No Growth after 120 hours Assessment and Plan Plan: 1 Acute hypoxemic respiratory failure secondary to COVID 19 pneumonia/pneumonitis. Not a candidate for Remdesivir, tocilizumab, convalescent plasma as the patient fell out of the window for this conventional treatments. The patient is currently on 6 L about 2 by nasal cannula. The patient is on Decadron. The patient is also on insulin drip for blood sugar control. D-dimer is elevated. Inflammatory markers are being monitored. The patient is on Lovenox 40 mg subcu every 12 hours. 2 Diabetes mellitus. The patient developed steroid-induced hyperglycemia and the patient is currently on insulin drip for blood sugar control 3 Gastroesophageal reflux disease. 4 Hypertension. 5 Osteoarthritis. Plan: The patient's inflammatory markers are on the decline. Oxidation is improved. We are going to wean her down to 5 L on a trial basis as long as she is able to maintain a saturation above 90%. Chest x-ray and labs reviewed Decrease Lovenox to 40 mg subcu twice a day Continue dexamethasone, vitamin supplements Repeat chest x-ray in the morning was noted Recheck inflammatory markers was noted and the numbers are all improving Increase her activity as tolerated We will continue to follow
[2020-07-23 11:09] LABS: Glucose,Whole Blood 177 mg/dL (75-99)
[2020-07-23] MEDS: ACETAMINOPHEN TAB 325 MG TAB PO PRN (11:30)
[2020-07-23 11:37] VITALS: BMI 38.8
[2020-07-23 13:01] LABS: Glucose,Whole Blood 280 mg/dL (75-99)
[2020-07-23 14:58] LABS: Glucose,Whole Blood 244 mg/dL (75-99)
[2020-07-23 17:03] LABS: Glucose,Whole Blood 185 mg/dL (75-99)
[2020-07-23] MEDS: INSULIN REGULAR 100 UNIT in SODIUM CHLORIDE 0.9% 100 ML IV SCH (19:06)
[2020-07-23 19:12] LABS: Glucose,Whole Blood 236 mg/dL (75-99)
[2020-07-23 21:38] LABS: Glucose,Whole Blood 171 mg/dL (75-99)
[2020-07-23 23:03] LABS: Glucose,Whole Blood 143 mg/dL (75-99)
--- NOTE | 2020-07-23 23:33 | PN ---
PROGRESS NOTE DATE OF SERVICE: 07/23/2020 REASON FOR FOLLOWUP: COVID-19 pneumonia. INTERVAL HISTORY: The patient is currently afebrile. The patient is breathing slightly comfortably. The patient denies having any chest pain. Cough, but not bringing up any sputum. No abdominal pain or diarrhea. PHYSICAL EXAMINATION: Blood pressure 122/61, pulse of 66, temperature 97.8. She is 95% on 5 L nasal cannula. General description is an elderly female up in the chair in no distress. RESPIRATORY SYSTEM: Unlabored breathing with decreased intensity of breath sounds. No wheeze. HEART: S1, S2. Regular rate and rhythm. ABDOMEN: Soft. No tenderness. LABS: No new labs have been obtained today. DIAGNOSTIC IMPRESSION AND PLAN: Patient with acute COVID-19 infection in this patient who is currently covered with dexamethasone, Lovenox, zinc, ascorbic acid; to continue along with respiratory support and monitor her clinical course closely. MMODL / IJN: [id number] /
--- NOTE | 2020-07-24 00:56 | P.PN ---
Progress Note - Text Progress Note Date: 07/23/20 Chief Complaint: Short of breath History of presenting complaint: This is a pleasant 70-year-old patient of Dr. Borges. Chronic stable medical conditions include diabetes, GERD, hypertension, osteoarthritis. For about a week patient been having symptoms of shortness of breath, cough. She had some diarrhea too. No fever. Decreased appetite. Tired rundown. Patient presents for that to the ER. Came back positive for COVID. Admitted with COVID 19 pneumonia, acute hypoxic respiratory failure. Placed on Lovenox Decadron. High flow oxygen Today-up in a chair. Oral intake has improved. Feeling better. On 5 L nasal cannula. Review of systems: Was done for constitutional, cardiovascular, GI, pulmonary. relevant finding as above Active Medications Acetaminophen (Acetaminophen Tab 325 Mg Tab) 650 mg PO Q6HR PRN PRN Reason: Mild Pain or Fever > 100.5 Last Admin: 07/23/20 11:30 Dose: 650 mg Documented by: Albuterol Sulfate (Albuterol Hfa Inhaler) 2 puff INHALATION RT-QID [facility] Last Admin: 07/23/20 18:59 Dose: 2 puff Documented by: Amlodipine Besylate (Amlodipine 10 Mg Tab) 10 mg PO DAILY [facility] Last Admin: 07/23/20 09:14 Dose: 10 mg Documented by: Ascorbic Acid (Ascorbic Acid 500 Mg Tab) 500 mg PO BID [facility] Last Admin: 07/23/20 20:12 Dose: 500 mg Documented by: Benzonatate (Benzonatate 100 Mg Cap) 200 mg PO TID PRN PRN Reason: Cough Cholecalciferol (Cholecalciferol 25 Mcg (1000 Iu) Tablet) 100 mcg PO DAILY [facility] Last Admin: 07/23/20 09:14 Dose: 100 mcg Documented by: Dexamethasone Sodium Phosphate (Dexamethasone Sod Phosphate 10 Mg/Ml 1 Ml Vial) 6 mg IV DAILY [facility] Last Admin: 07/23/20 09:15 Dose: 6 mg Documented by: Enoxaparin Sodium (Enoxaparin 40 Mg/0.4 Ml Syringe) 40 mg SQ Q12HR [facility] Last Admin: 07/23/20 20:12 Dose: 40 mg Documented by: Furosemide (Furosemide 40 Mg Tab) 40 mg PO BID@0900,1600 [facility] Last Admin: 07/23/20 16:07 Dose: 40 mg Documented by: Hydromorphone HCl (Hydromorphone 0.5 Mg/0.5 Ml Syringe) 0.5 mg IVP Q3HR PRN PRN Reason: Moderate Pain Insulin Human Regular 100 unit (/ Sodium Chloride) 101 mls @ 0 mls/hr IV .Q0M [facility]; Protocol Last Titration: 07/23/20 23:07 Dose: 2.5 units/hr, 2.525 mls/hr Documented by: Insulin Aspart (Insulin Aspart (Novolog) 100 Unit/Ml Vial) 18 unit 0.13 unit/kg (18 unit) SQ AC-TID [facility] Last Admin: 07/23/20 17:03 Dose: 18 unit Documented by: Lisinopril (Lisinopril 20 Mg Tab) 40 mg PO BID [facility] Last Admin: 07/23/20 20:11 Dose: 40 mg Documented by: Loperamide HCl (Loperamide 2 Mg Cap) 2 mg PO QID PRN PRN Reason: Diarrhea Metoprolol Tartrate (Metoprolol Tartrate 50 Mg Tab) 100 mg PO BID [facility] Last Admin: 07/23/20 20:12 Dose: 100 mg Documented by: Naloxone HCl (Naloxone 0.4 Mg/Ml 1 Ml Vial) 0.2 mg IV Q2M PRN PRN Reason: Opioid Reversal Non-Formulary Medication (Dapagliflozin Propanediol [Farxiga]) 10 mg PO DAILY [facility] Last Admin: 07/23/20 09:15 Dose: Not Given Documented by: Ondansetron HCl (Ondansetron 4 Mg/2 Ml Vial) 4 mg IVP Q8HR PRN PRN Reason: Nausea And Vomiting Pantoprazole Sodium (Pantoprazole 40 Mg Tablet) 40 mg PO DAILY [facility] Last Admin: 07/23/20 09:16 Dose: 40 mg Documented by: Potassium Chloride (Potassium Chloride Er 20 Meq Tab.Er) 20 meq PO DAILY [facility] Last Admin: 07/23/20 09:16 Dose: 20 meq Documented by: Pravastatin Sodium (Pravastatin Sodium 20 Mg Tab) 20 mg PO DAILY [facility] Last Admin: 07/23/20 09:16 Dose: 20 mg Documented by: Zinc Sulfate (Zinc Sulfate 220 Mg Cap) 220 mg PO DAILY [facility] Last Admin: 07/23/20 09:16 Dose: 220 mg Documented by: Past medical history to include: Diabetes, GERD, hypertension, osteoarthritis Social history: . No history of smoking and alcohol Family history: Reviewed, noncontributory to presentation Physical examination: VITAL SIGNS: 97.5, 66, 20, 140 x 72, 93% on 5 L GENERAL: Sitting up in a chair, less short of breath PSYCH: Alert and oriented x3; mood and affect anxious NEUROLOGICAL: Cranial nerves grossly intact; no facial asymmetry, moving all 4 limbs Rest of the exam per pulmonary and ID INVESTIGATIONS, reviewed in the clinical context: July 23: D-dimer 8.94 CRP 18.6 July 21: D-dimer 11.1 CRP 33.9 July 20: D-dimer 17.7 CRP 53.1 July 19: WBC 8.3 hemoglobin 12.7 potassium 3.9 creatinine 0.59 d-dimer more than 34 CRP 166 WBC 10.4 hemoglobin 13.3 platelets 223 potassium 4.1 creatinine 0.64 CRP 205 pro-calcitonin 0.26 Coronavirus [PCR]-detected EKG tracing personally reviewed by me-normal sinus rhythm Chest x-ray film personally reviewed by me-bilateral scattered infiltrates Assessment and plan: -Bilateral COVID 19 pneumonia with symptoms starting about a week ago. on Lovenox, Decadron, zinc, vitamin C vitamin D.- improving -Acute hypoxic respiratory failure patient requiring high flow oxygen 5 L- improving -Morbid obesity BMI 53.1. Follow-up for weight loss measures as an outpatient w [facility]. -Diabetes mellitus type 2 on oral hypoglycemic, uncontrolled with hyperglycemia. On insulin drip-slow to respond -GERD, continue with Prilosec -Essential hypertension, continue with Vasotec Norvasc Lopressor -Primary osteoarthritis, use pain medications as needed -Hyperlipidemia, continue with Pravachol -DO NOT RESUSCITATE discussed with the patient. incentive spirometry. Follow with pulmonary
[2020-07-24 01:05] LABS: Glucose,Whole Blood 138 mg/dL (75-99)
[2020-07-24 03:01] LABS: Glucose,Whole Blood 143 mg/dL (75-99)
[2020-07-24 05:07] LABS: Glucose,Whole Blood 128 mg/dL (75-99)
[2020-07-24 06:07] LABS: Glucose,Whole Blood 136 mg/dL (75-99)
[2020-07-24] MEDS: POTASSIUM CHLORIDE ER 20 MEQ TAB.ER PO SCH (07:50)
[2020-07-24] MEDS: DEXAMETHASONE SOD PHOSPHATE 10 MG/ML 1 ML VIAL IV SCH (07:50)
[2020-07-24] MEDS: ENOXAPARIN 40 MG/0.4 ML SYRINGE SQ SCH ×2 (07:50→20:58)
[2020-07-24] MEDS: ZINC SULFATE 220 MG CAP PO SCH (07:50)
[2020-07-24] MEDS: INSULIN ASPART (NovoLOG) 100 UNIT/ML VIAL SQ SCH ×3 (07:50→17:22)
[2020-07-24] MEDS: CHOLECALCIFEROL 25 MCG (1000 IU) TABLET PO SCH (07:51)
[2020-07-24] MEDS: ASCORBIC ACID 500 MG TAB PO SCH ×2 (07:51→20:58)
[2020-07-24] MEDS: amLODIPine 10 MG TAB PO SCH (07:51)
[2020-07-24] MEDS: PRAVASTATIN SODIUM 20 MG TAB PO SCH (07:51)
[2020-07-24] MEDS: PANTOPRAZOLE 40 MG TABLET PO SCH (07:51)
[2020-07-24] MEDS: FUROSEMIDE 40 MG TAB PO SCH ×2 (07:51→16:08)
[2020-07-24] MEDS: METOPROLOL TARTRATE 50 MG TAB PO SCH ×2 (07:51→20:58)
[2020-07-24] MEDS: lisinopriL 20 MG TAB PO SCH ×2 (07:51→20:58)
[2020-07-24] MEDS: NON FORMULARY DRUG (Dapagliflozin Propanediol [Farxiga] 10 MG Tablet) PO SCH (07:52)
[2020-07-24 08:02] LABS: Glucose,Whole Blood 132 mg/dL (75-99)
[2020-07-24] MEDS: ALBUTEROL HFA INHALER INHALATION SCH ×4 (09:45→21:19)
[2020-07-24 10:04] LABS: Glucose,Whole Blood 216 mg/dL (75-99)
--- NOTE | 2020-07-24 10:06 | P.PN ---
Subjective Progress Note Date: 07/24/20 This is a 62-year-old female that we see in the emergency department. She came to the emergency department on 317, complaining of increasing shortness of breath. She's not been feeling well for at least one month. She's been trying to take care of herself at home. Over the last couple of days, her symptoms got worse. She complains of chest congestion, cough, shortness of breath, fever, chills, muscle aches, and generally just not feeling well. Currently in the emergency department, she is on a nonrebreather mask, and 15 L high flow O2. She's not receiving any IV fluids. Both her and her are here in the emergency department, with COVID 19 pneumonia. She appears to be much sicker, as her oxygen requirements are much higher than her 's. 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 She has a history of diabetes mellitus, GERD, hypertension, and osteoarthritis. She is not a particularly good historian. White count is 10.4, hemoglobin 13.3, hematocrit 40.0, and platelet count 223,000. PT 13.1, INR 1.3, PTT 21.1, and d-dimer 25.52. Sodium 133, potassium 4.1, chloride 79, CO2 21, anion gap 13, BUN 15, creatinine 0.64. LDH is 1571, C-reactive protein is 206. COVID testing was positive. Chest x- rays consistent with bilateral infiltrates. They are rather extensive. The patient is seen today in 07/19/2020 in follow-up on the selective care unit. She is currently sitting up in a chair at the bedside. Awake and alert in no acute distress. Doing a bit better today compared to yesterday. She is still on 15 L high flow nasal cannula. O2 saturation 92%. Currently off the nonrebreather mask. White count 8.3. Hemoglobin 12.7. Lymphocytes 0.4. D- dimer greater than 34. Sodium 134. Potassium 3.9. Creatinine 0.59. C- reactive protein 166. Pro-calcitonin 0.26. She remains on Lovenox, Decadron, vitamin supplements. The patient is seen today 07/20/2020 in follow-up on the selective care unit. She is currently sitting up in bed. Awake and alert in no acute distress. Continues to progress well. Denies any worsening shortness of breath, cough or congestion. She is still requiring 15 L high flow nasal cannula with O2 saturat ion at 95%. She is on a insulin drip at 8.5 units per hour. 0.9 normal saline at 20 ML's per hour. Blood cultures reveal no growth. D-dimer trending down at 17.78, C-reactive protein 53. She remains on Lovenox 70 mg subcu every 12 hours, dexamethasone, vitamin supplements. Patient seen today 07/21/2020 in follow-up on the selective care unit. Currently sitting up in a chair at the bedside. Awake and alert in no acute distress. She is breathing easier today compared to yesterday. She still does require 15 L high flow nasal cannula to maintain O2 saturations in the 90s. Chest x-ray shows slight improvement in the peripheral lung infiltrates. She remains on a insulin drip at 6.5 units per hour. 0.9 normal saline at 20 ML's per hour. She is continued on Lovenox, dexamethasone, vitamin supplements. D- dimer 11.17. LDH 1260. C-reactive protein 33.9. On 07/22/2020 the patient is being seen for a follow-up. Is a 62-year-old female patient who presented with worsening shortness of breath. The patient was treated for acute hypoxic respiratory failure and the patient was diagnosed having pneumonia secondary to Covid 19. The patient Not a candidate for Remdesivir, tocilizumab, convalescent plasma. Note that the patient has not been feeling well for at least a month. She has been taking care of her self at home. When she presented to the hospital, she was diagnosed having Covid 19 and she was quite out of the window for the conventional treatment. The patient is currently on 11 L of oxygen by nasal cannula with a pulse ox of 95%. Inflammatory markers are being monitored. The patient had an elevated d-dimer and the patient is currently on Lovenox 40 mg subcu every 12 hours. The patient remains on Decadron 6 mg IV every 24 hours. Patient is also on insulin drip for blood sugar control 3.5 U/hr , The patient is having elevated blood sugars. Rest of the outpatient medications have been ordered resume. The patient is currently on 15 L of oxygen by nasal cannula. Her pulse ox currently is at 98%. She was Down to 11 L. Her last chest x-rays from yesterday and it showed bilateral pulmonary infiltrates, peripheral, improved compared to the earlier chest x-ray from 07/17/2020. The patient had a d-dimer of 11.1 which is down trending. The LDH was 1268 at this is also down trending. 07/23/2020, the patient is down to 6 L about 2 by nasal cannula and his oxygenation has improved. The chest x-ray was repeated and there is probably some improvement in the pulmonary infiltrate that was peripherally distributed on the left. Right lung is essentially the same. Nevertheless, there is obvious improvement in the oxygenation knowing that she got wean down significantly from yesterday down to 6 L. No significant cough or sputum production. She remains on Decadron 6 mg IV every 24 hours. D-dimer is down and is been persistently going down to 8.9. LDH is down to 9:30, CRP is down to 18.6. As such, all of the inflammatory markers are also improving. She remains on insulin drip at 5 units an hour and the blood sugars being monitored accord ingly. This is the medication remains unchanged. She was not a candidate for Remdesivir, tocilizumab, convalescent plasma 07/24/2020, the patient is feeling better and she is less short of breath and she is Down to 4 L of oxygen through a nasal cannula. Her pulse ox is above 90%. No significant shortness of breath or cough or sputum production. She remains on Decadron. Her inflammatory markers today show a CRP level of 14 and LDH level is 1057. These markers are still somewhat elevated. No other complaints otherwise for now. She is on insulin drip at 0.5 units an hour. D Dimer still elevated at 9.1. Objective - Vital Signs Vital signs: Vital Signs Temp 98.1 F 07/24/20 07:42 Pulse 68 07/24/20 07:58 Resp 18 07/24/20 07:58 BP 121/67 07/24/20 07:42 Pulse Ox 91 L 07/24/20 07:42 Intake & Output 07/23/20 07/24/20 07/24/20 18:59 06:59 18:59 Intake Total 1444.413 694.290 300.909 Output Total 1550 900 801 Balance -105.587 -205.710 -500.091 Weight 99.5 kg 100 kg Intake: Intake, IV Titration 64.413 34.290 0.909 Amount Insulin Regular 100 unit 64.413 34.290 0.909 In Sodium Chloride 0.9% 100 ml @ Titrate IV .Q0M [facility] Rx#:[id number] Oral 1380 660 300 Output: Urine 1550 900 800 Stool 1 Other: Voiding Method Bedside Commode Bedside Commode # Voids 1 2 # Bowel Movements 1 - Exam GENERAL EXAM: Alert, pleasant 70-year-old female patient, on 4 L high flow nasal cannula, comfortable in no apparent distress. HEAD: Normocephalic. EYES: Normal reaction of pupils, equal size. NOSE: Clear with pink turbinates. THROAT: No erythema or exudates. NECK: No masses, no JVD. CHEST: No chest wall deformity. LUNGS: Equal air entry with bilateral scattered rhonchi, crackles in the posterior bases CVS: S1 and S2 normal with no audible murmur, regular rhythm. ABDOMEN: No hepatosplenomegaly, normal bowel sounds, no guarding or rigidity. SPINE: No scoliosis or deformity SKIN: No rashes CENTRAL NERVOUS SYSTEM: No focal deficits, tone is normal in all 4 extremities. EXTREMITIES: There is no peripheral edema. No clubbing, no cyanosis. Peripheral pulses are intact. - Labs CBC & Chem 7: 07/19/20 07:25 07/23/20 06:46 Labs: Abnormal Lab Results - Last 24 Hours (Table) 07/23/20 07/23/20 07/23/20 Range/Units 11:08 13:00 14:56 D-Dimer (<0.60) mg/L FEU POC Glucose (mg/dL) 177 H 280 H 244 H (75-99) mg/dL Lactate Dehydrogenase (313-618) U/L C-Reactive Protein (<10.0) mg/L 07/23/20 07/23/20 07/23/20 Range/Units 17:01 19:06 21:37 D-Dimer (<0.60) mg/L FEU POC Glucose (mg/dL) 185 H 236 H 171 H (75-99) mg/dL Lactate Dehydrogenase (313-618) U/L C-Reactive Protein (<10.0) mg/L 07/23/20 07/24/20 07/24/20 Range/Units 23:02 01:03 02:59 D-Dimer (<0.60) mg/L FEU POC Glucose (mg/dL) 143 H 138 H 143 H (75-99) mg/dL Lactate Dehydrogenase (313-618) U/L C-Reactive Protein (<10.0) mg/L 07/24/20 07/24/20 07/24/20 Range/Units 05:05 06:05 08:01 D-Dimer (<0.60) mg/L FEU POC Glucose (mg/dL) 128 H 136 H 132 H (75-99) mg/dL Lactate Dehydrogenase (313-618) U/L C-Reactive Protein (<10.0) mg/L 07/24/20 07/24/20 Range/Units 08:26 08:26 D-Dimer 9.18 H (<0.60) mg/L FEU POC Glucose (mg/dL) (75-99) mg/dL Lactate Dehydrogenase 1057 H (313-618) U/L C-Reactive Protein 14.0 H (<10.0) mg/L Microbiology - Last 24 Hours (Table) 07/17/20 23:22 Blood Culture - Final Blood No Growth after 144 hours 07/17/20 22:22 Blood Culture - Final Blood No Growth after 144 hours Assessment and Plan Plan: 1 Acute hypoxemic respiratory failure secondary to COVID 19 pneumonia/pneumonitis. Not a candidate for Remdesivir, tocilizumab, convalescent plasma as the patient fell out of the window for this conventional treatments. The patient is on Decadron. The patient is also on insulin drip for blood sugar control. D-dimer is elevated. Inflammatory markers are being monitored. The patient is on Lovenox 40 mg subcu every 12 hours. Clinically, the patient continues to improve and she has been down to 4 L about 2 by nasal cannula. Inflammatory markers remain somewhat elevated especially d-dimer. 2 Diabetes mellitus. The patient developed steroid-induced hyperglycemia and the patient is currently on insulin drip for blood sugar control 3 Gastroesophageal reflux disease. 4 Hypertension. 5 Osteoarthritis. Plan: The patient is currently down to 4 L by nasal cannula. She is slowly improving. Inflammatory markers remain elevated including d-dimer. She is still on Lovenox 40 mg subcu every 12 hours. Chest x-ray and labs reviewed Decrease Lovenox to 40 mg subcu twice a day Continue dexamethasone, vitamin supplements She is currently on insulin drip at 0.5 units an hour along with 18 units with meals of NovoLog. The patient will likely need some degree of insulin coverage at home and at time of discharge , knowing that she is going to be on steroids.Recheck inflammatory markers was noted and the numbers are all improving She will also need probably a low-dose Xarelto 10 mg the time of discharge based on her age comorbidities and relative immobility an elevated d-dimer and hypercoagulability caused by COVID19 infection. We'll check her coverage for this medication. Increase her activity as tolerated We will continue to follow
[2020-07-24 12:03] LABS: Glucose,Whole Blood 241 mg/dL (75-99)
[2020-07-24 14:03] LABS: Glucose,Whole Blood 258 mg/dL (75-99)
[2020-07-24 16:11] LABS: Glucose,Whole Blood 170 mg/dL (75-99)
[2020-07-24 17:58] LABS: Glucose,Whole Blood 236 mg/dL (75-99)
[2020-07-24 20:03] LABS: Glucose,Whole Blood 177 mg/dL (75-99)
[2020-07-24] MEDS: INSULIN REGULAR 100 UNIT in SODIUM CHLORIDE 0.9% 100 ML IV SCH (20:15)
[2020-07-24 22:20] LABS: Glucose,Whole Blood 160 mg/dL (75-99)
--- NOTE | 2020-07-24 23:03 | P.PN ---
Progress Note - Text Progress Note Date: 07/24/20 Chief Complaint: Short of breath History of presenting complaint: This is a pleasant 70-year-old patient of Dr. Borges. Chronic stable medical conditions include diabetes, GERD, hypertension, osteoarthritis. For about a week patient been having symptoms of shortness of breath, cough. She had some diarrhea too. No fever. Decreased appetite. Tired rundown. Patient presents for that to the ER. Came back positive for COVID. Admitted with COVID 19 pneumonia, acute hypoxic respiratory failure. Placed on Lovenox Decadron. High flow oxygen Today-up in a chair. Oral intake about 100%. Improving. On 4 L nasal cannula. Review of systems: Was done for constitutional, cardiovascular, GI, pulmonary. relevant finding as above Active Medications Acetaminophen (Acetaminophen Tab 325 Mg Tab) 650 mg PO Q6HR PRN PRN Reason: Mild Pain or Fever > 100.5 Last Admin: 07/23/20 11:30 Dose: 650 mg Documented by: Albuterol Sulfate (Albuterol Hfa Inhaler) 2 puff INHALATION RT-QID [facility] Last Admin: 07/24/20 21:19 Dose: 2 puff Documented by: Amlodipine Besylate (Amlodipine 10 Mg Tab) 10 mg PO DAILY [facility] Last Admin: 07/24/20 07:51 Dose: 10 mg Documented by: Ascorbic Acid (Ascorbic Acid 500 Mg Tab) 500 mg PO BID [facility] Last Admin: 07/24/20 20:58 Dose: 500 mg Documented by: Benzonatate (Benzonatate 100 Mg Cap) 200 mg PO TID PRN PRN Reason: Cough Cholecalciferol (Cholecalciferol 25 Mcg (1000 Iu) Tablet) 100 mcg PO DAILY [facility] Last Admin: 07/24/20 07:51 Dose: 100 mcg Documented by: Dexamethasone Sodium Phosphate (Dexamethasone Sod Phosphate 10 Mg/Ml 1 Ml Vial) 6 mg IV DAILY [facility] Last Admin: 07/24/20 07:50 Dose: 6 mg Documented by: Enoxaparin Sodium (Enoxaparin 40 Mg/0.4 Ml Syringe) 40 mg SQ Q12HR [facility] Last Admin: 07/24/20 20:58 Dose: 40 mg Documented by: Furosemide (Furosemide 40 Mg Tab) 40 mg PO BID@0900,1600 [facility] Last Admin: 07/24/20 16:08 Dose: 40 mg Documented by: Hydromorphone HCl (Hydromorphone 0.5 Mg/0.5 Ml Syringe) 0.5 mg IVP Q3HR PRN PRN Reason: Moderate Pain Insulin Human Regular 100 unit (/ Sodium Chloride) 101 mls @ 0 mls/hr IV .Q0M [facility]; Protocol Last Titration: 07/24/20 22:10 Dose: 3.5 units/hr, 3.535 mls/hr Documented by: Insulin Aspart (Insulin Aspart (Novolog) 100 Unit/Ml Vial) 18 unit 0.13 unit/kg (18 unit) SQ AC-TID [facility] Last Admin: 07/24/20 17:22 Dose: 18 unit Documented by: Lisinopril (Lisinopril 20 Mg Tab) 40 mg PO BID [facility] Last Admin: 07/24/20 20:58 Dose: 40 mg Documented by: Loperamide HCl (Loperamide 2 Mg Cap) 2 mg PO QID PRN PRN Reason: Diarrhea Metoprolol Tartrate (Metoprolol Tartrate 50 Mg Tab) 100 mg PO BID [facility] Last Admin: 07/24/20 20:58 Dose: 100 mg Documented by: Naloxone HCl (Naloxone 0.4 Mg/Ml 1 Ml Vial) 0.2 mg IV Q2M PRN PRN Reason: Opioid Reversal Non-Formulary Medication (Dapagliflozin Propanediol [Farxiga]) 10 mg PO DAILY [facility] Last Admin: 07/24/20 07:52 Dose: Not Given Documented by: Ondansetron HCl (Ondansetron 4 Mg/2 Ml Vial) 4 mg IVP Q8HR PRN PRN Reason: Nausea And Vomiting Pantoprazole Sodium (Pantoprazole 40 Mg Tablet) 40 mg PO DAILY [facility] Last Admin: 07/24/20 07:51 Dose: 40 mg Documented by: Potassium Chloride (Potassium Chloride Er 20 Meq Tab.Er) 20 meq PO DAILY [facility] Last Admin: 07/24/20 07:50 Dose: 20 meq Documented by: Pravastatin Sodium (Pravastatin Sodium 20 Mg Tab) 20 mg PO DAILY [facility] Last Admin: 07/24/20 07:51 Dose: 20 mg Documented by: Zinc Sulfate (Zinc Sulfate 220 Mg Cap) 220 mg PO DAILY [facility] Last Admin: 07/24/20 07:50 Dose: 220 mg Documented by: Past medical history to include: Diabetes, GERD, hypertension, osteoarthritis Social history: . No history of smoking and alcohol Family history: Reviewed, noncontributory to presentation Physical examination: VITAL SIGNS: 97.5, 72, 16, 122 x 70, 93% on 4 L GENERAL: Sitting up in a chair, less short of breath PSYCH: Alert and oriented x3; mood and affect anxious NEUROLOGICAL: Cranial nerves grossly intact; no facial asymmetry, moving all 4 limbs Rest of the exam per pulmonary and ID INVESTIGATIONS, reviewed in the clinical context: July 24: D-dimer 9.18 CRP 14 July 23: D-dimer 8.94 CRP 18.6 July 21: D-dimer 11.1 CRP 33.9 July 20: D-dimer 17.7 CRP 53.1 July 19: WBC 8.3 hemoglobin 12.7 potassium 3.9 creatinine 0.59 d-dimer more than 34 CRP 166 WBC 10.4 hemoglobin 13.3 platelets 223 potassium 4.1 creatinine 0.64 CRP 205 pro-calcitonin 0.26 Coronavirus [PCR]-detected EKG tracing personally reviewed by me-normal sinus rhythm Chest x-ray film personally reviewed by me-bilateral scattered infiltrates Assessment and plan: -Bilateral COVID 19 pneumonia with symptoms starting about a week ago. on Lovenox, Decadron, zinc, vitamin C vitamin D.- improving -Acute hypoxic respiratory failure patient requiring high flow oxygen 4 L- improving -Morbid obesity BMI 53.1. Follow-up for weight loss measures as an outpatient with PCP. -Diabetes mellitus type 2 on oral hypoglycemic, uncontrolled with hyperglycemia. On insulin drip-slow to respond -GERD, continue with Prilosec -Essential hypertension, continue with Vasotec Norvasc Lopressor -Primary osteoarthritis, use pain medications as needed -Hyperlipidemia, continue with Pravachol -DO NOT RESUSCITATE discussed with the patient. incentive spirometry. Hopefully patient can be discharged home in the next 24 hours. Follow with pulmonary
--- NOTE | 2020-07-24 23:34 | PN ---
PROGRESS NOTE DATE OF SERVICE: 07/24/2020 REASON FOR FOLLOWUP: Acute COVID-19 pneumonia. INTERVAL HISTORY: The patient is currently afebrile. The patient is breathing comfortably. The patient denies having any chest pain. Occasional cough. No abdominal pain or diarrhea. PHYSICAL EXAMINATION: Blood pressure 115/67, pulse of 68, temperature 98.4. She is 93% on 4 L nasal cannula. General description is an elderly female up in the chair in no distress. RESPIRATORY SYSTEM: Unlabored breathing with decreased intensity of breath sounds. No wheeze. HEART: S1, S2. Regular rate and rhythm. ABDOMEN: Soft. No tenderness. LABS: No new labs have been obtained today. DIAGNOSTIC IMPRESSION AND PLAN: Patient with acute COVID-19 pneumonia in this patient currently on dexamethasone, Lovenox, zinc, ascorbic acid; to continue along with respiratory support and monitor clinical course closely. Continue with supportive care. MMODL / IJN: [id number] /
[2020-07-25 00:11] LABS: Glucose,Whole Blood 165 mg/dL (75-99)
[2020-07-25 02:27] LABS: Glucose,Whole Blood 122 mg/dL (75-99)
[2020-07-25 03:09] LABS: Glucose,Whole Blood 103 mg/dL (75-99)
[2020-07-25 04:07] LABS: Glucose,Whole Blood 108 mg/dL (75-99)
[2020-07-25 05:09] LABS: Glucose,Whole Blood 102 mg/dL (75-99)
[2020-07-25 06:13] LABS: Glucose,Whole Blood 157 mg/dL (75-99)
[2020-07-25 08:14] LABS: Glucose,Whole Blood 160 mg/dL (75-99)
[2020-07-25] MEDS: DEXAMETHASONE SOD PHOSPHATE 10 MG/ML 1 ML VIAL IV SCH (08:20)
[2020-07-25] MEDS: CHOLECALCIFEROL 25 MCG (1000 IU) TABLET PO SCH (08:21)
[2020-07-25] MEDS: INSULIN ASPART (NovoLOG) 100 UNIT/ML VIAL SQ SCH ×6 (08:21→21:36)
[2020-07-25] MEDS: amLODIPine 10 MG TAB PO SCH (08:23)
[2020-07-25] MEDS: lisinopriL 20 MG TAB PO SCH ×2 (08:23→20:08)
[2020-07-25] MEDS: FUROSEMIDE 40 MG TAB PO SCH ×2 (08:23→16:51)
[2020-07-25] MEDS: ASCORBIC ACID 500 MG TAB PO SCH ×2 (08:23→20:08)
[2020-07-25] MEDS: PANTOPRAZOLE 40 MG TABLET PO SCH (08:23)
[2020-07-25] MEDS: POTASSIUM CHLORIDE ER 20 MEQ TAB.ER PO SCH (08:23)
[2020-07-25] MEDS: PRAVASTATIN SODIUM 20 MG TAB PO SCH (08:24)
[2020-07-25] MEDS: ZINC SULFATE 220 MG CAP PO SCH (08:24)
[2020-07-25] MEDS: ENOXAPARIN 40 MG/0.4 ML SYRINGE SQ SCH ×2 (08:24→20:08)
[2020-07-25] MEDS: METOPROLOL TARTRATE 50 MG TAB PO SCH ×2 (08:24→20:08)
[2020-07-25] MEDS: ALBUTEROL HFA INHALER INHALATION SCH ×4 (09:20→20:13)
[2020-07-25 10:05] LABS: Glucose,Whole Blood 144 mg/dL (75-99)
--- NOTE | 2020-07-25 11:14 | P.PN ---
Subjective Progress Note Date: 07/25/20 This is a 62-year-old female that we see in the emergency department. She came to the emergency department on 317, complaining of increasing shortness of breath. She's not been feeling well for at least one month. She's been trying to take care of herself at home. Over the last couple of days, her symptoms got worse. She complains of chest congestion, cough, shortness of breath, fever, chills, muscle aches, and generally just not feeling well. Currently in the emergency department, she is on a nonrebreather mask, and 15 L high flow O2. She's not receiving any IV fluids. Both her and her are here in the emergency department, with COVID 19 pneumonia. She appears to be much sicker, as her oxygen requirements are much higher than her 's. 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 She has a history of diabetes mellitus, GERD, hypertension, and osteoarthritis. She is not a particularly good historian. White count is 10.4, hemoglobin 13.3, hematocrit 40.0, and platelet count 223,000. PT 13.1, INR 1.3, PTT 21.1, and d-dimer 25.52. Sodium 133, potassium 4.1, chloride 79, CO2 21, anion gap 13, BUN 15, creatinine 0.64. LDH is 1571, C-reactive protein is 206. COVID testing was positive. Chest x- rays consistent with bilateral infiltrates. They are rather extensive. The patient is seen today in 07/19/2020 in follow-up on the selective care unit. She is currently sitting up in a chair at the bedside. Awake and alert in no acute distress. Doing a bit better today compared to yesterday. She is still on 15 L high flow nasal cannula. O2 saturation 92%. Currently off the nonrebreather mask. White count 8.3. Hemoglobin 12.7. Lymphocytes 0.4. D- dimer greater than 34. Sodium 134. Potassium 3.9. Creatinine 0.59. C- reactive protein 166. Pro-calcitonin 0.26. She remains on Lovenox, Decadron, vitamin supplements. The patient is seen today 07/20/2020 in follow-up on the selective care unit. She is currently sitting up in bed. Awake and alert in no acute distress. Continues to progress well. Denies any worsening shortness of breath, cough or congestion. She is still requiring 15 L high flow nasal cannula with O2 saturat ion at 95%. She is on a insulin drip at 8.5 units per hour. 0.9 normal saline at 20 ML's per hour. Blood cultures reveal no growth. D-dimer trending down at 17.78, C-reactive protein 53. She remains on Lovenox 70 mg subcu every 12 hours, dexamethasone, vitamin supplements. Patient seen today 07/21/2020 in follow-up on the selective care unit. Currently sitting up in a chair at the bedside. Awake and alert in no acute distress. She is breathing easier today compared to yesterday. She still does require 15 L high flow nasal cannula to maintain O2 saturations in the 90s. Chest x-ray shows slight improvement in the peripheral lung infiltrates. She remains on a insulin drip at 6.5 units per hour. 0.9 normal saline at 20 ML's per hour. She is continued on Lovenox, dexamethasone, vitamin supplements. D- dimer 11.17. LDH 1260. C-reactive protein 33.9. On 07/22/2020 the patient is being seen for a follow-up. Is a 62-year-old female patient who presented with worsening shortness of breath. The patient was treated for acute hypoxic respiratory failure and the patient was diagnosed having pneumonia secondary to Covid 19. The patient Not a candidate for Remdesivir, tocilizumab, convalescent plasma. Note that the patient has not been feeling well for at least a month. She has been taking care of her self at home. When she presented to the hospital, she was diagnosed having Covid 19 and she was quite out of the window for the conventional treatment. The patient is currently on 11 L of oxygen by nasal cannula with a pulse ox of 95%. Inflammatory markers are being monitored. The patient had an elevated d-dimer and the patient is currently on Lovenox 40 mg subcu every 12 hours. The patient remains on Decadron 6 mg IV every 24 hours. Patient is also on insulin drip for blood sugar control 3.5 U/hr , The patient is having elevated blood sugars. Rest of the outpatient medications have been ordered resume. The patient is currently on 15 L of oxygen by nasal cannula. Her pulse ox currently is at 98%. She was Down to 11 L. Her last chest x-rays from yesterday and it showed bilateral pulmonary infiltrates, peripheral, improved compared to the earlier chest x-ray from 07/17/2020. The patient had a d-dimer of 11.1 which is down trending. The LDH was 1268 at this is also down trending. 07/23/2020, the patient is down to 6 L about 2 by nasal cannula and his oxygenation has improved. The chest x-ray was repeated and there is probably some improvement in the pulmonary infiltrate that was peripherally distributed on the left. Right lung is essentially the same. Nevertheless, there is obvious improvement in the oxygenation knowing that she got wean down significantly from yesterday down to 6 L. No significant cough or sputum production. She remains on Decadron 6 mg IV every 24 hours. D-dimer is down and is been persistently going down to 8.9. LDH is down to 9:30, CRP is down to 18.6. As such, all of the inflammatory markers are also improving. She remains on insulin drip at 5 units an hour and the blood sugars being monitored accord ingly. This is the medication remains unchanged. She was not a candidate for Remdesivir, tocilizumab, convalescent plasma 07/24/2020, the patient is feeling better and she is less short of breath and she is Down to 4 L of oxygen through a nasal cannula. Her pulse ox is above 90%. No significant shortness of breath or cough or sputum production. She remains on Decadron. Her inflammatory markers today show a CRP level of 14 and LDH level is 1057. These markers are still somewhat elevated. No other complaints otherwise for now. She is on insulin drip at 0.5 units an hour. D Dimer still elevated at 9.1. 07/25/2020, Becca is doing well. No specific complaints. She is on oxygen and she is currently down to 3 L of oxygen by nasal cannula and she is able to maintain a saturation above 90%. LDH today is at 1035 in the d-dimer is improving at 6.4 and the CRP is also improving is down to 10. She is sitting up on a chair. She has no specific complaints. As for the blood sugar control, she is well controlled for now and she was on an insulin drip at 3 units an hour and I was asked the internal medicine group to make adjustments on her outpatient blood sugar management. Objective - Vital Signs Vital signs: Vital Signs Temp 98 F 07/25/20 08:00 Pulse 72 07/25/20 08:00 Resp 18 07/25/20 08:00 BP 118/63 07/25/20 08:00 Pulse Ox 95 07/25/20 08:00 Intake & Output 07/24/20 07/25/20 07/25/20 18:59 06:59 18:59 Intake Total 717.704 35.468 256.084 Output Total 2051 600 1601 Balance -1333.296 -564.532 -1344.916 Weight 100.2 kg Intake: Intake, IV Titration 57.704 35.468 16.084 Amount Insulin Regular 100 unit 57.704 35.468 16.084 In Sodium Chloride 0.9% 100 ml @ Titrate IV .Q0M [facility] Rx#:[id number] Oral 660 240 Output: Urine 2049 600 1601 Stool 1 Other: Voiding Method Bedside Commode # Bowel Movements 1 - Exam GENERAL EXAM: Alert, pleasant 70-year-old female patient, on 4 L high flow nasal cannula, comfortable in no apparent distress. HEAD: Normocephalic. EYES: Normal reaction of pupils, equal size. NOSE: Clear with pink turbinates. THROAT: No erythema or exudates. NECK: No masses, no JVD. CHEST: No chest wall deformity. LUNGS: Equal air entry with bilateral scattered rhonchi, crackles in the posterior bases CVS: S1 and S2 normal with no audible murmur, regular rhythm. ABDOMEN: No hepatosplenomegaly, normal bowel sounds, no guarding or rigidity. SPINE: No scoliosis or deformity SKIN: No rashes CENTRAL NERVOUS SYSTEM: No focal deficits, tone is normal in all 4 extremities. EXTREMITIES: There is no peripheral edema. No clubbing, no cyanosis. Peripheral pulses are intact. - Labs CBC & Chem 7: 07/19/20 07:25 07/23/20 06:46 Labs: Abnormal Lab Results - Last 24 Hours (Table) 07/24/20 07/24/20 07/24/20 Range/Units 12:00 14:00 16:06 D-Dimer (<0.60) mg/L FEU POC Glucose (mg/dL) 241 H 258 H 170 H (75-99) mg/dL Lactate Dehydrogenase (313-618) U/L C-Reactive Protein (<10.0) mg/L 07/24/20 07/24/20 07/24/20 Range/Units 17:57 20:01 22:08 D-Dimer (<0.60) mg/L FEU POC Glucose (mg/dL) 236 H 177 H 160 H (75-99) mg/dL Lactate Dehydrogenase (313-618) U/L C-Reactive Protein (<10.0) mg/L 07/25/20 07/25/20 07/25/20 Range/Units 00:09 02:25 02:58 D-Dimer (<0.60) mg/L FEU POC Glucose (mg/dL) 165 H 122 H 103 H (75-99) mg/dL Lactate Dehydrogenase (313-618) U/L C-Reactive Protein (<10.0) mg/L 07/25/20 07/25/20 07/25/20 Range/Units 03:56 04:58 06:01 D-Dimer (<0.60) mg/L FEU POC Glucose (mg/dL) 108 H 102 H 157 H (75-99) mg/dL Lactate Dehydrogenase (313-618) U/L C-Reactive Protein (<10.0) mg/L 07/25/20 07/25/20 07/25/20 Range/Units 08:11 09:37 09:37 D-Dimer 6.41 H (<0.60) mg/L FEU POC Glucose (mg/dL) 160 H (75-99) mg/dL Lactate Dehydrogenase 1035 H (313-618) U/L C-Reactive Protein 10.0 H (<10.0) mg/L 07/25/20 Range/Units 10:03 D-Dimer (<0.60) mg/L FEU POC Glucose (mg/dL) 144 H (75-99) mg/dL Lactate Dehydrogenase (313-618) U/L C-Reactive Protein (<10.0) mg/L Assessment and Plan Plan: 1 Acute hypoxemic respiratory failure secondary to COVID 19 pneumonia/pneumonitis. Not a candidate for Remdesivir, tocilizumab, convalescent plasma as the patient fell out of the window for this conventional treatments. The patient is on Decadron. The patient is also on insulin drip for blood sugar control. D-dimer is elevated. Inflammatory markers are being monitored. The patient is on Lovenox 40 mg subcu every 12 hours. Clinically, the patient continues to improve and she has been down to 3 L about 2 by nasal c annula. Inflammatory markers continue improve and the patient is still on Decadron 2 Diabetes mellitus. The patient developed steroid-induced hyperglycemia and the patient is currently on insulin drip for blood sugar control 3 Gastroesophageal reflux disease. 4 Hypertension. 5 Osteoarthritis. Plan: The patient is currently down to 3 L by nasal cannula. She is slowly improving. Inflammatory markers remain elevated including d-dimer are all improving. She is still on Lovenox 40 mg subcu every 12 hours. Continue dexamethasone, vitamin supplements She is currently on insulin drip at 0.5 units an hour along with 18 units with meals of NovoLog. The patient will likely need some degree of insulin coverage at home and at time of discharge , knowing that she is going to be on steroids .Recheck inflammatory markers was noted and the numbers are all improving She will also need probably a low-dose Xarelto 10 mg the time of discharge based on her age comorbidities and relative immobility an elevated d-dimer and hypercoagulability caused by COVID19 infection. We'll check her coverage for this medication. Increase her activity as tolerated We will continue to follow
[2020-07-25] MEDS ORDERED: GLIMEPIRIDE 2 MG TAB PO SCH (11:30)
[2020-07-25 11:43] LABS: HCT 40.7 % (34.0-46.0); HGB 12.9 gm/dL (11.4-16.0); Hypochromasia Slight; MCH 27.7 pg (25.0-35.0); MCHC 31.8 g/dL (31.0-37.0); MCV 87.3 fL (80.0-100.0); Mean Platelet Volume 7.7; Platelet Count 202 k/uL (150-450); RBC 4.66 m/uL (3.80-5.40); RDW 14.8 % (11.5-15.5); WBC 10.6 k/uL (3.8-10.6)
--- NOTE | 2020-07-25 11:54 | XR ---
EXAMINATION TYPE: XR chest 1V portable DATE OF EXAM: 07/25/2020 COMPARISON: 07/23/2020 HISTORY: Shortness of breath TECHNIQUE: Single frontal view of the chest is obtained. FINDINGS: Patchy bilateral areas of infiltrate. Heart size normal. Diffuse osteopenia. Arthropathy o f the shoulders. Heart size normal. Surgical clips in the upper abdomen. IMPRESSION: 1. COPD with patchy bilateral infiltrate stable.
[2020-07-25 12:00] LABS: African American GFR (CKD) >90 (>60 ml/min/1.73 sqM); Anion Gap 6 mmol/L; Blood Urea Nitrogen 20 mg/dL (7-17); Carbon Dioxide 27 mmol/L (22-30); Chloride 100 mmol/L (98-107); Glucose 135 mg/dL (74-99); Non-African American GFR(CKD) >90 (>60 ml/min/1.73 sqM); Potassium 4.5 mmol/L (3.5-5.1); Sodium 133 mmol/L (137-145)
[2020-07-25] MEDS: NON FORMULARY DRUG (Dapagliflozin Propanediol [Farxiga] 10 MG Tablet) PO SCH (12:01)
[2020-07-25 12:03] LABS: Glucose,Whole Blood 132 mg/dL (75-99)
[2020-07-25] MEDS ORDERED: GLIMEPIRIDE 1 MG TAB PO SCH (12:30)
[2020-07-25 15:06] LABS: Glucose,Whole Blood 188 mg/dL (75-99)
[2020-07-25 16:46] LABS: Glucose,Whole Blood 216 mg/dL (75-99)
--- NOTE | 2020-07-25 18:05 | PN ---
PROGRESS NOTE DATE OF SERVICE: 07/25/2020 REASON FOR FOLLOWUP: COVID-19 pneumonia. INTERVAL HISTORY: The patient is currently afebrile. The patient is breathing comfortably. The patient denies having any chest pain or shortness of breath. She did have some cough, not bringing up sputum. No nausea, vomiting. No abdominal pain or diarrhea. PHYSICAL EXAMINATION: Blood pressure 129/71 with a pulse of 66, temperature 97.7. She is 93% on 1 L nasal cannula. General description is an elderly female up in the chair in no distress. RESPIRATORY SYSTEM: Unlabored breathing with decreased intensity of breath sounds. No wheeze. HEART: S1, S2. Regular rate and rhythm. ABDOMEN: Soft. No tenderness. LABS: Hemoglobin is 12.9, white count 10.6, BUN of 20, creatinine 0.51. Blood culture negative. DIAGNOSTIC IMPRESSION AND PLAN: Patient with acute COVID-19 pneumonia in this patient who seems to have shown overall clinical improvement. She has been weaned off the oxygen. The patient is on dexamethasone, Lovenox, zinc, ascorbic acid; to continue while monitoring her clinical course closely. Continue supportive care. MMODL / IJN: [id number] /
[2020-07-25 21:30] LABS: Glucose,Whole Blood 220 mg/dL (75-99)
[2020-07-26] MEDS: INSULIN ASPART (NovoLOG) 100 UNIT/ML VIAL SQ SCH ×6 (07:07→17:00)
[2020-07-26 07:08] LABS: Glucose,Whole Blood 120 mg/dL (75-99)
--- NOTE | 2020-07-26 07:29 | P.PN ---
Subjective Date of service 07/25/20. Patient is seen and examined by me at bedside From records This is a pleasant 70-year-old patient of Dr. Borges. Chronic stable medical conditions include diabetes, GERD, hypertension, osteoarthritis. For about a week patient been having symptoms of shortness of breath, cough. She had some diarrhea too. No fever. Decreased appetite. Tired rundown. Patient presents for that to the ER. Came back positive for COVID. Admitted with COVID 19 pneumonia, acute hypoxic respiratory failure. Placed on Lovenox Decadron. High flow oxygen Today-up in a chair. Oral intake about 100%. Improving. On 4 L nasal cannula. Subjective: 07/25/2020 This is a pleasant 70 years old female with multiple medical problems was admit [facility] for Covid pneumonia, and she is improving gradually while she is on dexamethasone, zinc, vitamin C. Also she is on Lovenox with pulmonary team following case closely. Also xarelto suggested by pulmonary team for hypercoagulable state caused by Covid infection. Her glucose was elevated while she is on dexamethasone. At home she was on Amaryl 2 mg daily. She could not use metformin because of GI symptoms as per patient. She was on insulin drip which is stopped and patient was started on Amaryl 4 mg daily. NovoLog with meals report from 18 units down to 5 units with meals Procalcitonin came back to normal at 0.08. LDH is elevated 1035 and C-reactive protein at 10. D-dimer is high at 9.1 came down to 6.4 She states that she has a glucometer at home when she can check her sugar 4 times a day as instructed Objective - Vital Signs Vital signs: Vital Signs Temp 97.6 F 07/26/20 04:00 Pulse 59 L 07/26/20 04:00 Resp 22 07/26/20 04:00 BP 168/79 07/26/20 04:00 Pulse Ox 92 L 07/26/20 04:00 Intake & Output 07/25/20 07/26/20 07/26/20 18:59 06:59 18:59 Intake Total 736.084 Output Total 5891 2151 1900 Balance -1714.916 -2151 -1900 Weight 100 kg Intake: Intake, IV Titration 16.084 Amount Insulin Regular 100 unit 16.084 In Sodium Chloride 0.9% 100 ml @ Titrate IV .Q0M [facility] Rx#:[id number] Oral 720 Output: Urine 2451 2150 1900 Stool 1 Other: Voiding Method Bedside Commode # Voids 1 3 # Bowel Movements 1 - Exam GENERAL: The patient is alert and oriented x3, not in any acute distress. Well developed, well nourished. HEENT: Pupils are round and equally reacting to light. EOMI. No scleral icterus. No conjunctival pallor. Normocephalic, atraumatic. No pharyngeal erythema. No thyromegaly. CARDIOVASCULAR: S1 and S2 present. No murmurs, rubs, or gallops. PULMONARY: Chest is clear to auscultation, no wheezing or crackles. ABDOMEN: Soft, nontender, nondistended, normoactive bowel sounds. No palpable organomegaly. MUSCULOSKELETAL: No joint swelling or deformity. EXTREMITIES: No cyanosis, clubbing, or pedal edema. NEUROLOGICAL: Gross neurological examination did not reveal any focal deficits. SKIN: No rashes. no petechiae. - Labs CBC & Chem 7: 07/25/20 11:18 07/25/20 11:18 Labs: Abnormal Lab Results - Last 24 Hours (Table) 07/25/20 07/25/20 07/25/20 Range/Units 08:11 09:37 09:37 D-Dimer 6.41 H (<0.60) mg/L FEU Sodium (137-145) mmol/L BUN (7-17) mg/dL Creatinine (0.52-1.04) mg/dL Glucose (74-99) mg/dL POC Glucose (mg/dL) 160 H (75-99) mg/dL Lactate Dehydrogenase 1035 H (313-618) U/L C-Reactive Protein 10.0 H (<10.0) mg/L 07/25/20 07/25/20 07/25/20 Range/Units 10:03 11:18 12:01 D-Dimer (<0.60) mg/L FEU Sodium 133 L (137-145) mmol/L BUN 20 H (7-17) mg/dL Creatinine 0.51 L (0.52-1.04) mg/dL Glucose 135 H (74-99) mg/dL POC Glucose (mg/dL) 144 H 132 H (75-99) mg/dL Lactate Dehydrogenase (313-618) U/L C-Reactive Protein (<10.0) mg/L 07/25/20 07/25/20 07/25/20 Range/Units 15:00 16:44 21:16 D-Dimer (<0.60) mg/L FEU Sodium (137-145) mmol/L BUN (7-17) mg/dL Creatinine (0.52-1.04) mg/dL Glucose (74-99) mg/dL POC Glucose (mg/dL) 188 H 216 H 220 H (75-99) mg/dL Lactate Dehydrogenase (313-618) U/L C-Reactive Protein (<10.0) mg/L 07/26/20 Range/Units 07:04 D-Dimer (<0.60) mg/L FEU Sodium (137-145) mmol/L BUN (7-17) mg/dL Creatinine (0.52-1.04) mg/dL Glucose (74-99) mg/dL POC Glucose (mg/dL) 120 H (75-99) mg/dL Lactate Dehydrogenase (313-618) U/L C-Reactive Protein (<10.0) mg/L Assessment and Plan Assessment: -Bilateral COVID 19 pneumonia with symptoms starting about a week ago. on Lovenox, Decadron, zinc, vitamin C vitamin D.- improving -Acute hypoxic respiratory failure patient requiring high flow oxygen 2 L- improving -Morbid obesity BMI 53.1. Follow-up for weight loss measures as an outpatient with PCP. -Diabetes mellitus type 2 on oral hypoglycemic, uncontrolled with hyperglycemia. Continue with Amaryl and NovoLog with ISS -GERD, continue with Prilosec -Essential hypertension, continue with Vasotec Norvasc Lopressor -Primary osteoarthritis, use pain medications as needed -Hyperlipidemia, continue with Pravachol -DO NOT RESUSCITATE
[2020-07-26] MEDS ORDERED: GLIMEPIRIDE 2 MG TAB PO SCH (07:30)
[2020-07-26] MEDS: POTASSIUM CHLORIDE ER 20 MEQ TAB.ER PO SCH (08:05)
[2020-07-26] MEDS: METOPROLOL TARTRATE 50 MG TAB PO SCH (08:05)
[2020-07-26] MEDS: CHOLECALCIFEROL 25 MCG (1000 IU) TABLET PO SCH (08:06)
[2020-07-26] MEDS: ASCORBIC ACID 500 MG TAB PO SCH (08:06)
[2020-07-26] MEDS: ENOXAPARIN 40 MG/0.4 ML SYRINGE SQ SCH (08:06)
[2020-07-26] MEDS: ZINC SULFATE 220 MG CAP PO SCH (08:06)
[2020-07-26] MEDS: PANTOPRAZOLE 40 MG TABLET PO SCH (08:06)
[2020-07-26] MEDS: PRAVASTATIN SODIUM 20 MG TAB PO SCH (08:06)
[2020-07-26] MEDS: FUROSEMIDE 40 MG TAB PO SCH ×2 (08:07→17:00)
[2020-07-26] MEDS: lisinopriL 20 MG TAB PO SCH (08:07)
[2020-07-26] MEDS: amLODIPine 10 MG TAB PO SCH (08:07)
[2020-07-26] MEDS ORDERED: DEXAMETHASONE SOD PHOSPHATE 4 MG/ML 1 ML VIAL IV SCH (09:00)
[2020-07-26] MEDS: ALBUTEROL HFA INHALER INHALATION SCH ×3 (09:17→16:50)
[2020-07-26] MEDS: NON FORMULARY DRUG (Dapagliflozin Propanediol [Farxiga] 10 MG Tablet) PO SCH (11:12)
[2020-07-26 12:23] LABS: Glucose,Whole Blood 219 mg/dL (75-99)
--- NOTE | 2020-07-26 12:37 | P.PN ---
Subjective Progress Note Date: 07/26/20 This is a 62-year-old female that we see in the emergency department. She came to the emergency department on 317, complaining of increasing shortness of breath. She's not been feeling well for at least one month. She's been trying to take care of herself at home. Over the last couple of days, her symptoms got worse. She complains of chest congestion, cough, shortness of breath, fever, chills, muscle aches, and generally just not feeling well. Currently in the emergency department, she is on a nonrebreather mask, and 15 L high flow O2. She's not receiving any IV fluids. Both her and her are here in the emergency department, with COVID 19 pneumonia. She appears to be much sicker, as her oxygen requirements are much higher than her 's. 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 She has a history of diabetes mellitus, GERD, hypertension, and osteoarthritis. She is not a particularly good historian. White count is 10.4, hemoglobin 13.3, hematocrit 40.0, and platelet count 223,000. PT 13.1, INR 1.3, PTT 21.1, and d-dimer 25.52. Sodium 133, potassium 4.1, chloride 79, CO2 21, anion gap 13, BUN 15, creatinine 0.64. LDH is 1571, C-reactive protein is 206. COVID testing was positive. Chest x- rays consistent with bilateral infiltrates. They are rather extensive. The patient is seen today in 07/19/2020 in follow-up on the selective care unit. She is currently sitting up in a chair at the bedside. Awake and alert in no acute distress. Doing a bit better today compared to yesterday. She is still on 15 L high flow nasal cannula. O2 saturation 92%. Currently off the nonrebreather mask. White count 8.3. Hemoglobin 12.7. Lymphocytes 0.4. D- dimer greater than 34. Sodium 134. Potassium 3.9. Creatinine 0.59. C- reactive protein 166. Pro-calcitonin 0.26. She remains on Lovenox, Decadron, vitamin supplements. The patient is seen today 07/20/2020 in follow-up on the selective care unit. She is currently sitting up in bed. Awake and alert in no acute distress. Continues to progress well. Denies any worsening shortness of breath, cough or congestion. She is still requiring 15 L high flow nasal cannula with O2 saturat ion at 95%. She is on a insulin drip at 8.5 units per hour. 0.9 normal saline at 20 ML's per hour. Blood cultures reveal no growth. D-dimer trending down at 17.78, C-reactive protein 53. She remains on Lovenox 70 mg subcu every 12 hours, dexamethasone, vitamin supplements. Patient seen today 07/21/2020 in follow-up on the selective care unit. Currently sitting up in a chair at the bedside. Awake and alert in no acute distress. She is breathing easier today compared to yesterday. She still does require 15 L high flow nasal cannula to maintain O2 saturations in the 90s. Chest x-ray shows slight improvement in the peripheral lung infiltrates. She remains on a insulin drip at 6.5 units per hour. 0.9 normal saline at 20 ML's per hour. She is continued on Lovenox, dexamethasone, vitamin supplements. D- dimer 11.17. LDH 1260. C-reactive protein 33.9. On 07/22/2020 the patient is being seen for a follow-up. Is a 62-year-old female patient who presented with worsening shortness of breath. The patient was treated for acute hypoxic respiratory failure and the patient was diagnosed having pneumonia secondary to Covid 19. The patient Not a candidate for Remdesivir, tocilizumab, convalescent plasma. Note that the patient has not been feeling well for at least a month. She has been taking care of her self at home. When she presented to the hospital, she was diagnosed having Covid 19 and she was quite out of the window for the conventional treatment. The patient is currently on 11 L of oxygen by nasal cannula with a pulse ox of 95%. Inflammatory markers are being monitored. The patient had an elevated d-dimer and the patient is currently on Lovenox 40 mg subcu every 12 hours. The patient remains on Decadron 6 mg IV every 24 hours. Patient is also on insulin drip for blood sugar control 3.5 U/hr , The patient is having elevated blood sugars. Rest of the outpatient medications have been ordered resume. The patient is currently on 15 L of oxygen by nasal cannula. Her pulse ox currently is at 98%. She was Down to 11 L. Her last chest x-rays from yesterday and it showed bilateral pulmonary infiltrates, peripheral, improved compared to the earlier chest x-ray from 07/17/2020. The patient had a d-dimer of 11.1 which is down trending. The LDH was 1268 at this is also down trending. 07/23/2020, the patient is down to 6 L about 2 by nasal cannula and his oxygenation has improved. The chest x-ray was repeated and there is probably some improvement in the pulmonary infiltrate that was peripherally distributed on the left. Right lung is essentially the same. Nevertheless, there is obvious improvement in the oxygenation knowing that she got wean down significantly from yesterday down to 6 L. No significant cough or sputum production. She remains on Decadron 6 mg IV every 24 hours. D-dimer is down and is been persistently going down to 8.9. LDH is down to 9:30, CRP is down to 18.6. As such, all of the inflammatory markers are also improving. She remains on insulin drip at 5 units an hour and the blood sugars being monitored accord ingly. This is the medication remains unchanged. She was not a candidate for Remdesivir, tocilizumab, convalescent plasma 07/24/2020, the patient is feeling better and she is less short of breath and she is Down to 4 L of oxygen through a nasal cannula. Her pulse ox is above 90%. No significant shortness of breath or cough or sputum production. She remains on Decadron. Her inflammatory markers today show a CRP level of 14 and LDH level is 1057. These markers are still somewhat elevated. No other complaints otherwise for now. She is on insulin drip at 0.5 units an hour. D Dimer still elevated at 9.1. 07/25/2020, Becca is doing well. No specific complaints. She is on oxygen and she is currently down to 3 L of oxygen by nasal cannula and she is able to maintain a saturation above 90%. LDH today is at 1035 in the d-dimer is improving at 6.4 and the CRP is also improving is down to 10. She is sitting up on a chair. She has no specific complaints. As for the blood sugar control, she is well controlled for now and she was on an insulin drip at 3 units an hour and I was asked the internal medicine group to make adjustments on her outpatient blood sugar management. On 07/26/2020, I'm seeing the patient for a follow-up.On today's evaluation, Becca is down in her oxygen flow and she was weaned down to 1.5 L and currently she is on room air oxygen and her pulse ox is around 94%. She is afebrile. She is hemodynamically stable. Her LDH from yesterday was 1035. Her CRP level is down to 10. Her chest x-ray from yesterday was showing patchy bilateral pulmonary infiltrates. Clinically however she is better. Her oxygenation is improved. The patient remains on Lovenox 40 mg subcu on a daily basis. The patient is also on Decadron on a daily basis. Her anticoagulation is with Lovenox 40 mg subcu every 12 hours. Her d-dimer is at 6.4.In terms of her blood sugar control, the patient on sliding scale coverage and she is using NovoLog 5 units with meals plus is sinus care coverage and she is back on Amaryl 4 mg by mouth twice a day. Objective - Vital Signs Vital signs: Vital Signs Temp 97.6 F 07/26/20 08:00 Pulse 62 07/26/20 08:00 Resp 16 07/26/20 08:00 BP 134/63 07/26/20 08:00 Pulse Ox 94 L 07/26/20 08:00 Intake & Output 07/25/20 07/26/20 07/26/20 18:59 06:59 18:59 Intake Total 736.084 Output Total 2451 2151 1900 Balance -1714.916 -2151 -1900 Weight 100 kg Intake: Intake, IV Titration 16.084 Amount Insulin Regular 100 unit 16.084 In Sodium Chloride 0.9% 100 ml @ Titrate IV .Q0M [facility] Rx#:[id number] Oral 720 Output: Urine 2451 2150 1900 Stool 1 Other: Voiding Method Bedside Commode # Voids 1 3 # Bowel Movements 1 - Exam GENERAL EXAM: Alert, pleasant 70-year-old female patient, on RA, comfortable in no apparent distress. HEAD: Normocephalic. EYES: Normal reaction of pupils, equal size. NOSE: Clear with pink turbinates. THROAT: No erythema or exudates. NECK: No masses, no JVD. CHEST: No chest wall deformity. LUNGS: Equal air entry with bilateral scattered rhonchi, crackles in the posterior bases CVS: S1 and S2 normal with no audible murmur, regular rhythm. ABDOMEN: No hepatosplenomegaly, normal bowel sounds, no guarding or rigidity. SPINE: No scoliosis or deformity SKIN: No rashes CENTRAL NERVOUS SYSTEM: No focal deficits, tone is normal in all 4 extremities. EXTREMITIES: There is no peripheral edema. No clubbing, no cyanosis. Peripheral pulses are intact. - Labs CBC & Chem 7: 07/25/20 11:18 07/25/20 11:18 Labs: Abnormal Lab Results - Last 24 Hours (Table) 07/25/20 07/25/20 07/25/20 Range/Units 15:00 16:44 21:16 POC Glucose (mg/dL) 188 H 216 H 220 H (75-99) mg/dL 07/26/20 07/26/20 Range/Units 07:04 12:05 POC Glucose (mg/dL) 120 H 219 H (75-99) mg/dL Assessment and Plan Plan: 1 Acute hypoxemic respiratory failure secondary to COVID 19 pn eumonia/pneumonitis. Not a candidate for Remdesivir, tocilizumab, convalescent plasma as the patient fell out of the window for this conventional treatments. The patient was treated with Decadron. She is currently improved. She is currently back on room air oxygen. Her chest x-ray from yesterday was still showing patchy by the pulmonary infiltrates. Her d-dimer was still elevated from yesterday. Clinically improved. Oxygenation is also improved. 2 Diabetes mellitus. The patient developed steroid-induced hyperglycemia and the patient is off oxygen drip for now. 3 Gastroesophageal reflux disease. 4 Hypertension. 5 Osteoarthritis. Plan: The patient is an oxygen. She can be potentially discharged home today on a total of seven-day course of Decadron 6 milligrams, and I would also suggest addition of Xarelto 10 mg for next 30 days to make sure the patient does not have any embolic phenomena. Her d-dimer currently is still elevated. Clinically she is doing much better. She can be discharged home. Was waiting final advice from medicine regarding her blood sugar management knowing that the patient has developed some degree of steroid-induced hyperglycemia. We'll fo llow up this patient office in a few weeks time if the decision is to discharge today.
[2020-07-26] MEDS ORDERED: RIVAROXABAN 10 MG TAB PO STA (12:48)
[2020-07-26 12:50] VITALS: BP 131/59; PULSE 66; RESP 20; TEMP 98
--- NOTE | 2020-07-26 15:15 | PN ---
PROGRESS NOTE DATE OF SERVICE: 07/26/2020 REASON FOR FOLLOWUP: COVID-19 pneumonia. INTERVAL HISTORY: The patient is currently afebrile. The patient is feeling better. Breathing comfortably. The patient is currently on room air. The patient denies having any chest pain or shortness of breath. She did have some cough, not bringing up any sputum. No abdominal pain or diarrhea. PHYSICAL EXAMINATION: Blood pressure 134/63 with a pulse of 62, temperature 97.6. She is 94% on room air. General description is an elderly female up in the chair in no distress. RESPIRATORY SYSTEM: Unlabored breathing with scattered rhonchi. HEART: S1, S2. Regular rate and rhythm. ABDOMEN: Soft, no tenderness. LABS: No new labs have been obtained today. DIAGNOSTIC IMPRESSION AND PLAN: Patient with acute COVID-19 pneumonia in this patient who showed overall clinical improvement. She is currently on dexamethasone, vitamin C, , zinc to continue along with Lovenox, and monitor clinical course closely. Continue supportive care. MMODL / IJN: [id number] /
[2020-07-26 17:04] LABS: Glucose,Whole Blood 236 mg/dL (75-99)
--- NOTE | 2020-07-27 01:08 | P.DS ---
Providers Date of admission: 07/18/20 00:44 Attending physician: Jorden Deutsch Consults: 07/18/20 00:45 Consult Physician Routine Consulting Provider: Charles Medina Consult Reason/Comments: covid Do you want consulting provider notified?: Yes Consult Physician Routine Consulting Provider: Ruthann Carrillo Consult Reason/Comments: covid Do you want consulting provider notified?: Yes Primary care physician: [facility] Course: Diagnoses: -Bilateral COVID 19 pneumonia , improved and cleared by back winder for discharge -Acute hypoxic respiratory failure, discharge and home oxygen -Morbid obesity BMI 53.1. -Diabetes mellitus type 2 on oral hypoglycemic, Continue with Amaryl , farxiga and NovoLog -GERD -Essential hypertension -Primary osteoarthritis -Hyperlipidemia -DO NOT RESUSCITATE Hospital course: This is a pleasant 70 years old female with multiple medical problems was admitted for Covid pneumonia, and she is improving gradually and on the day of discharge she was on room air at rest however she needed oxygen with exertion, while she is on dexamethasone, zinc, vitamin C. Also she is on Lovenox with pulmonary team following case closely. Also xarelto suggested by pulmonary team for hypercoagulable state caused by Covid infection. Co-pay for Xarelto is $9. Her glucose was elevated while she is on dexamethasone. At home she was on Amaryl 2 mg daily. and farxiga , She could not use metformin because of GI symptoms as per patient. She was on insulin drip which is stopped and patient was started on Amaryl 4 mg daily.c/w Farxiga and NovoLog 5 units with meals. Patient and his son Mr. Stevenson more instructed extensively to monitor glucose closely 4 times a day before each meal and at bedtime at least for 2 weeks. The results documented and oriented to her doctor. He'll come to ED if glucose less than 70 or more than 400 and she and her son VERBALIZED UNDERSTANDING AND ACCEPTANCE Patient and son are made aware that discontinuing dexamethasone after 6 days as an outpatient with a will bring her glucose and blood pressure down and close monitoring is recommended for both Patient is back to baseline and on the day of discharge she denies chest pain or dyspnea. Abdominal pain, no nausea vomiting, no change in urine or bowel habits. No fever. She has some loose bowel movements twice a day but no overt diarrhea and no other GI symptoms and she tolerates diet Patient was cleared for discharge by back winder Problems and management plan were discussed with the patient and he verbalized understanding and acceptance Patient was found stable and can be discharged home however he needs follow-up as an outpatient. Patient was instructed to follow up with PCP Dr. Borges within one week and patient agrees, patient also was instructed to follow up with p ulmonologist Dr. Carlin in 1-2 weeks and she agrees Physical exam Gen: patient is a AAOx3, no distress CVS: S1-S2, RRR, no murmur Lungs: B/L CTA, no wheezing Abdomen: soft, no distention, no tenderness, positive bowel sounds Extremity: no leg edema or induration Time spent more than 35 minutes Patient Condition at Discharge: Critical Plan - Discharge Summary Discharge Rx Participant: Yes New Discharge Prescriptions: New Dexamethasone [Decadron] 6 mg PO DAILY 6 Days #6 tablet Rivaroxaban [Xarelto] 10 mg PO DAILY 30 Days #30 tab Zinc Sulfate [Orazinc] 220 mg PO DAILY #30 cap Albuterol Inhaler [Ventolin Hfa Inhaler] 2 puff INHALATION RT-QID #1 vial Ascorbic Acid [Vitamin C] 500 mg PO BID #60 tab Cholecalciferol [Vitamin D3 (25 Mcg = 1000 Iu)] 100 mcg PO DAILY #120 tablet lisinopriL [Zestril] 40 mg PO BID #120 tab Glimepiride [Amaryl] 4 mg PO AC-BRKFST #60 tab Continue amLODIPine [Norvasc] 10 mg PO DAILY Metoprolol Tartrate [Lopressor] 100 mg PO BID Furosemide [Lasix] 40 mg PO BID Loperamide [Imodium] 2 mg PO QID PRN PRN Reason: Diarrhea Pravastatin Sodium [Pravachol] 20 mg PO DAILY Potassium Chloride ER [K-Dur 20] 20 meq PO DAILY Omeprazole [PriLOSEC] 10 mg PO DAILY Benzonatate [Benzonatate Perle] 200 mg PO TID PRN PRN Reason: Cough Dapagliflozin Propanediol [Farxiga] 10 mg PO DAILY #30 tab Discontinued Enalapril [Vasotec] 20 mg PO BID Glimepiride [Amaryl] 2 mg PO AC-BRKFST Discharge Medication List Furosemide [Lasix] 40 mg PO BID 02/01/18 [History] Metoprolol Tartrate [Lopressor] 100 mg PO BID 02/01/18 [History] amLODIPine [Norvasc] 10 mg PO DAILY 02/01/18 [History] Benzonatate [Benzonatate Perle] 200 mg PO TID PRN 07/17/20 [History] Loperamide [Imodium] 2 mg PO QID PRN 07/17/20 [History] Omeprazole [PriLOSEC] 10 mg PO DAILY 07/17/20 [History] Potassium Chloride ER [K-Dur 20] 20 meq PO DAILY 07/17/20 [History] Pravastatin Sodium [Pravachol] 20 mg PO DAILY 07/17/20 [History] Dexamethasone [Decadron] 6 mg PO DAILY 6 Days #6 tablet 07/24/20 [Rx] Rivaroxaban [Xarelto] 10 mg PO DAILY 30 Days #30 tab 07/24/20 [Rx] Albuterol Inhaler [Ventolin Hfa Inhaler] 2 puff INHALATION RT-QID #1 vial 07/26/20 [Rx] Ascorbic Acid [Vitamin C] 500 mg PO BID #60 tab 07/26/20 [Rx] Cholecalciferol [Vitamin D3 (25 Mcg = 1000 Iu)] 100 mcg PO DAILY #120 tablet 07/26/20 [Rx] Dapagliflozin Propanediol [Farxiga] 10 mg PO DAILY #30 tab 07/26/20 [Rx] Glimepiride [Amaryl] 4 mg PO AC-BRKFST #60 tab 07/26/20 [Rx] Zinc Sulfate [Orazinc] 220 mg PO DAILY #30 cap 07/26/20 [Rx] lisinopriL [Zestril] 40 mg PO BID #120 tab 07/26/20 [Rx] Follow up Appointment(s)/Referral(s): Gino Borges MD [Primary Care Provider] - 1-2 days (Please call for an appointment. ) Benito Carlin DO [Doctor of Osteopathic Medicine] - 2 Weeks (Please call for an appointment. or ) [facility] [NON-STAFF] - 1 Week Patient Instructions/Handouts: Coronavirus Disease 2019 (COVID-19), Viral Pneumonia (DC) Activity/Diet/Wound Care/Special Instructions: Xarelto (blood thinner) covered by insurance - Rx filled at [facility] pharmacy - copay $9 Heart healthy diet Activity is restricted until you see your doctor We recommend you check your blood glucose 4 times a day before each meals and at bedside. And keep results in a log book and bringing the result to her doctor on your appointment date If your glucose less than 70 or more than 400 then call 911 on come to emergency room steroid (dexamethasone) is known to increase your glucose and Blood pressure, so if you stop dexamethasone in 6 days, you might have lower blood glucose and lower blood pressure . please keep monitoring your blood glucose and lower blood pressure closely and refer to your doctor for any further concerns or questions Discharge Disposition: HOME WITH HOME HEALTH SERVICES
== END 2020-07-26 18:30 | disposition home health service (06) | DRG 177 ==
LOC: EC 21:21 → 3SCARD 07-18 00:44
PROVIDERS: ADMIT Hospitalist; ATTEND Hospitalist
DX: U07.1 COVID-19 (principal); J12.82 Pneumonia due to coronavirus disease 2019; J96.01 Acute respiratory failure with hypoxia; Z68.43 Body mass index [BMI] 50.0-59.9, adult; J44.0 Chronic obstructive pulmonary disease with (acute) lower respiratory infection; Z66 Do not resuscitate; M19.91 Primary osteoarthritis, unspecified site; K21.9 Gastro-esophageal reflux disease without esophagitis; D72.810 Lymphocytopenia; E11.65 Type 2 diabetes mellitus with hyperglycemia; T38.0X5A Adverse effect of glucocorticoids and synthetic analogues, initial encounter; E66.01 Morbid (severe) obesity due to excess calories; E78.5 Hyperlipidemia, unspecified; F40.240 Claustrophobia; I10 Essential (primary) hypertension; Z79.01 Long term (current) use of anticoagulants; Z79.899 Other long term (current) drug therapy; Z79.84 Long term (current) use of oral hypoglycemic drugs; Z99.81 Dependence on supplemental oxygen; Z91.040 Latex allergy status; Z90.49 Acquired absence of other specified parts of digestive tract; Z30.2 Encounter for sterilization
CPT/HCPCS: 36415; 71045; 80048; 80053; 83036; 83605; 83615; 83735; 84100; 84145; 84484; 85025; 85027; 85379; 85610; 85730; 86140; 87040; 87635; 93005; 94640; 94760; 99285

== ENCOUNTER → 2024-01-17 | Outpatient (CLI) | payer MEDICARE ==
[2024-01-17 15:36] LABS: ALT 61 U/L (8-44); AST 88 U/L (13-35); Chol/HDL Ratio 4.97 Ratio; LDL Cholesterol,Calculated 104.2 mg/dL (0.0-131.0)
== END | disposition home or self-care (01) ==
LOC: LABWHC1 10:42
PROVIDERS: ATTEND Internal Medicine Interventional Cardiology
DX: E78.2 Mixed hyperlipidemia (principal)
CPT/HCPCS: 36415; 80061; 84450; 84460

== ENCOUNTER 2024-08-16 07:46 | Day surgery (SDC) | payer MEDICARE ==
[2024-08-14 09:43] VITALS: BMI 41.4
[2024-08-16 08:21] LABS: Glucose,Whole Blood 149 mg/dL (70-110)
[2024-08-16] MEDS: IV FLUID CONTINUATION 1,000 ML IV ONE (08:22)
[2024-08-16 08:24] VITALS: TEMP 97.3
[2024-08-16] MEDS ORDERED: LIDOCAINE 1% INJ 10MG/ML (20 ML MDV) ONE (08:28)
[2024-08-16] MEDS ORDERED: PROPOFOL 10 MG/ML 20 ML VIAL IV ONE (08:28)
[2024-08-16] MEDS: LACTATED RINGERS 1,000 ML IV SCH (08:28)
--- NOTE | 2024-08-16 08:31 | P.GSHP ---
History of Present Illness H&P Date: 08/16/24 CHIEF COMPLAINT: GERD and colon screen HISTORY OF PRESENT ILLNESS: The patient is a 74-year-old female who presents with gastroesophageal reflux disease and need for colon screen. Upper and lower endoscopy were offered for further evaluation and management. PAST MEDICAL HISTORY: Please see list. PAST SURGICAL HISTORY: Please see list. MEDICATIONS: Please see list. ALLERGIES: Please see list. SOCIAL HISTORY: No illicit drug use FAMILY HISTORY: No reports of Crohn disease or ulcerative colitis. REVIEW OF ORGAN SYSTEMS: CONSTITUTIONAL: No reports of fevers or chills. GI: Denies any blood in stools or constipation. PHYSICAL EXAM: VITAL SIGNS: Stable GENERAL: Well-developed pleasant in no acute distress. HEENT: No scleral icterus. Extraocular movements grossly intact. Moist buccal mucosa. NECK: Supple without lymphadenopathy. CHEST: Unlabored respirations. Equal bilateral excursions. CARDIOVASCULAR: Regular rate and rhythm. Distal 2+ pulses. ABDOMEN: Soft, nondistended. MUSCULOSKELETAL: No clubbing, cyanosis, or edema. ASSESSMENT: 1. Gastroesophageal reflux disease 2. Colon screen. PLAN: 1. Recommend proceeding with an upper and lower endoscopy Past Medical History Past Medical History: Chest Pain / Angina, Diabetes Mellitus, GERD/Reflux, Hyperlipidemia, Hypertension, Osteoarthritis (OA) Additional Past Medical History / Comment(s): Hx Rheumatic Fever as a child. History of Any Multi-Drug Resistant Organisms: None Reported Past Surgical History: Appendectomy, Cholecystectomy, Hernia Repair, Tubal Ligation Additional Past Surgical History / Comment(s): Bilateral cataract surgery. Past Anesthesia/Blood Transfusion Reactions: Previous Problems w/ Anesthesia, Motion Sickness Additional Past Anesthesia/Blood Transfusion Reaction / Comment(s): Stated hyperventilated after one of her surgeries as she was waking-not sure why. Claustrophobia. Smoking Status: Never smoker - Past Family History Mother Family Medical History: No Reported History Medications and Allergies Home Medications Medication Instructions Recorded Confirmed Type Furosemide [Lasix] 40 mg PO BID 02/01/18 08/16/24 History amLODIPine [Norvasc] 10 mg PO QAM 02/01/18 08/16/24 History Omeprazole [PriLOSEC] 10 mg PO QAM 07/17/20 08/16/24 History Dapagliflozin Propanediol [Farxiga] 10 mg PO DAILY #30 tab 07/26/20 08/16/24 Rx Aspirin [Adult Low Dose Aspirin EC] 81 mg PO DAILY 08/14/24 08/16/24 History Atorvastatin Calcium [Lipitor] 40 mg PO DAILY 08/14/24 08/16/24 History Ibuprofen [Motrin] 800 mg PO Q8H PRN 08/14/24 08/16/24 History Lovastatin [Mevacor] 10 mg PO DAILY 08/14/24 08/16/24 History Semaglutide [Rybelsus] 14 mg PO QAM 08/14/24 08/16/24 History glipiZIDE 8 mg PO DAILY 08/14/24 08/16/24 History polyethylene glycoL 3350 [Miralax] 17 gm PO DAILY PRN 08/14/24 08/16/24 History Allergies Allergy/AdvReac Type Severity Reaction Status Date / Time Latex, Natural Rubber Allergy Rash/Hives Verified 08/16/24 08:28 Surgical - Exam Vital Signs Temp Pulse Resp BP Pulse Ox 97.3 F L 75 13 132/73 97 08/16/24 08:23 08/16/24 08:23 08/16/24 08:23 08/16/24 08:23 08/16/24 08:23 Results - Labs Abnormal Lab Results - Last 24 Hours (Table) 08/16/24 Range/Units 08:19 POC Glucose (mg/dL) 149 H (70-110) mg/dL
--- NOTE | 2024-08-16 08:43 | P.PCN ---
Date of Procedure: 08/16/24 Description of Procedure: PREOPERATIVE DIAGNOSIS: Gastroesophageal reflux disease. NSAID induced gastritis Morbid obesity. POSTOPERATIVE DIAGNOSIS: Gastroesophageal reflux disease with erosive esophagitis Gastritis, acute with bleeding Diaphragmatic hiatal hernia OPERATION: Esophagogastroduodenoscopy with cold forceps biopsies along antrum and duodenum SURGEON: Chasity Taylor MD ANESTHESIA: MAC. INDICATIONS: The patient is a 74-year-old female who presents with chronic NSAID use with risk of gastritis and reflux disease. Benefits and risks of the procedure were described. Informed consent was obtained. DESCRIPTION: The patient was brought into the endoscopy suite and laid in the left lateral decubitus position. An Olympus gastroscope was passed along the posterior oropharynx down to the distal esophagus where the squamocolumnar junction was encountered at 36 cm from the incisors. The stomach was entered and no bile reflux was found. Additional findings are listed below. Biopsies with cold forceps were obtained of the antrum. The first through third portion of the duodenum was examined. Retroflexion of the scope confirmed Hill grade 3 lower esophageal valve. The squamocolumnar junction demonstrated LA grade B erosive esophagitis. The stomach was desufflated. The patient tolerated the procedure well. FINDINGS: Squamocolumnar junction 36 cm from the incisors. Diaphragmatic hiatus at 37 cm. Hiatal hernia, 1 cm, sliding-type Hill grade 4 lower esophageal valve. LA grade B erosive esophagitis. Biopsies obtained Biopsies obtained of the duodenum. Acute gastritis with bleeding with biopsies obtained. RECOMMENDATIONS: Upper endoscopy as needed.
--- NOTE | 2024-08-16 09:10 | P.PCN ---
Date of Procedure: 08/16/24 Description of Procedure: PREOPERATIVE DIAGNOSIS: History of colon polyps Colonoscopy screening. POSTOPERATIVE DIAGNOSIS: Colonoscopy screening. Diverticulosis, scattered. OPERATION: Colonoscopy to the cecum, ileocecal valve and appendiceal orifice. SURGEON: Chasity Taylor MD. ANESTHESIA: MAC. INDICATIONS: The patient is a 74-year-old female who presents for colonoscopy screening. Last colonoscopy over 5 years ago. Benefits and risks were described and informed consent was obtained. DESCRIPTION OF PROCEDURE: The patient had undergone Suprep. The patient had been brought into the operating room and laid in the left lateral decubitus position. After adequate intravenous sedation, the rectum was examined with 2% lidocaine jelly. External hemorrhoids were encountered. The rectal tone was within normal limits. No lesions were palpated in the rectal vault. An Olympus colonoscope was advanced until the cecum, ileocecal valve and appendiceal orifice were clearly viewed. The prep was good. Scattered diverticulosis was encountered. No colonic polyps were found. No evidence of focal colitis was found. Retroflexion of the scope demonstrated grade 1 internal hemorrhoids without active bleeding or inflammation. The colon was desufflated. The patient had tolerated the procedure well. Withdrawal time was over 6 minutes. FINDINGS: Aronchick preparation quality scale 2 (1-5) Internal hemorrhoids, grade 2 External prolapsed hemorrhoids, grade 3 Pandiverticulosis No arteriovenous malformations. No adenomatous polyps. No focal colitis. RECOMMENDATIONS: Lower endoscopy [id number] Plan - Discharge Summary Discharge Rx Participant: No New Discharge Prescriptions: New Omeprazole [PriLOSEC] 40 mg PO DAILY #14 cap Continue amLODIPine [Norvasc] 10 mg PO QAM Furosemide [Lasix] 40 mg PO BID Dapagliflozin Propanediol [Farxiga] 10 mg PO DAILY #30 tab polyethylene glycoL 3350 [Miralax] 17 gm PO DAILY PRN PRN Reason: Constipation Ibuprofen [Motrin] 800 mg PO Q8H PRN PRN Reason: Pain Lovastatin [Mevacor] 10 mg PO DAILY Atorvastatin Calcium [Lipitor] 40 mg PO DAILY Aspirin [Adult Low Dose Aspirin EC] 81 mg PO DAILY glipiZIDE 8 mg PO DAILY Semaglutide [Rybelsus] 14 mg PO QAM Discontinued Omeprazole [PriLOSEC] 10 mg PO QAM Discharge Medication List Furosemide [Lasix] 40 mg PO BID 02/01/18 [History] amLODIPine [Norvasc] 10 mg PO QAM 02/01/18 [History] Dapagliflozin Propanediol [Farxiga] 10 mg PO DAILY #30 tab 07/26/20 [Rx] Aspirin [Adult Low Dose Aspirin EC] 81 mg PO DAILY 08/14/24 [History] Atorvastatin Calcium [Lipitor] 40 mg PO DAILY 08/14/24 [History] Ibuprofen [Motrin] 800 mg PO Q8H PRN 08/14/24 [History] Lovastatin [Mevacor] 10 mg PO DAILY 08/14/24 [History] Semaglutide [Rybelsus] 14 mg PO QAM 08/14/24 [History] glipiZIDE 8 mg PO DAILY 08/14/24 [History] polyethylene glycoL 3350 [Miralax] 17 gm PO DAILY PRN 08/14/24 [History] Omeprazole [PriLOSEC] 40 mg PO DAILY #14 cap 08/16/24 [Rx] Follow up Appointment(s)/Referral(s): Chasity Taylor MD [STAFF PHYSICIAN] - 09/05/24 1:00 pm Patient Instructions/Handouts: Diverticulosis Diet (GEN), Diverticulosis (DC) Activity/Diet/Wound Care/Special Instructions: Repeat colonoscopy 5 years, 2029 Discharge Disposition: HOME SELF-CARE
[2024-08-16 09:11] VITALS: RESP 16
[2024-08-16 09:25] VITALS: BP 113/60; PULSE 74
== END 2024-08-16 10:30 | disposition home or self-care (01) ==
LOC: ORWHC2ENDO 07:46
PROVIDERS: ATTEND Surgery Plastic and Reconstructive Surgery
DX: Z12.11 Encounter for screening for malignant neoplasm of colon (principal); K29.50 Unspecified chronic gastritis without bleeding; K21.00 Gastro-esophageal reflux disease with esophagitis, without bleeding; K44.9 Diaphragmatic hernia without obstruction or gangrene; K57.30 Diverticulosis of large intestine without perforation or abscess without bleeding; K64.2 Third degree hemorrhoids; I10 Essential (primary) hypertension; E78.5 Hyperlipidemia, unspecified; E66.01 Morbid (severe) obesity due to excess calories; E11.9 Type 2 diabetes mellitus without complications; M19.90 Unspecified osteoarthritis, unspecified site; Z79.82 Long term (current) use of aspirin; Z79.84 Long term (current) use of oral hypoglycemic drugs; Z79.899 Other long term (current) drug therapy; Z86.0100 Personal history of colon polyps, unspecified; Z90.49 Acquired absence of other specified parts of digestive tract; Z91.040 Latex allergy status; Z98.51 Tubal ligation status
CPT/HCPCS: 88305; 45378; 43239; J2003; J2704